=== PATIENT | male | born 1960 | race Caucasian/White ===

== ENCOUNTER 2023-07-11 09:01 | Emergency (ER) | payer OTHER, SELFPAY ==
[2023-07-11 09:03] VITALS: BP 109/66
--- NOTE | 2023-07-11 09:26 | ED.MUSCINJ ---
HPI-Injury
General
Chief Complaint: Fall
Source: patient
Exam Limitations: none
Time Seen by Provider: 07/11/23 09:21
Nursing documentation reviewed up to this point in time: agreed with
Travel History
Have you had any contact with someone who has COVID-19?: No
Do you have any symptoms of coronavirus? Fever > 100 degrees, chills, cough, shortness of breath, sore throat, loss of taste or smell, muscle aches, or headache?: No
History of Present Illness-Injury
Initial Injury comments:
63-year-old male with history of CHF, HTN, EF of 25%, RA on Embril weekly, cholecystectomy and orthopedic surgeries presents from home stating via EMS for right posterior lateral rib pain after a slip and fall on the ice while shoveling in his
driveway yesterday 6 PM, falling flat on his back. He also struck his left wrist hard on the ground and has pain in the ulnar aspect of the carpal bone area. He denies chest pain or trouble breathing. Denies abdominal pain. He denies hitting his
head or LOC. Denies headache, neck pain. He has been ambulating well. He is anticoagulated on Eliquis
Past History
Past History
ED Past Medical History: Other (Cardiomyopathy w EF 25% 05/13/23) and Other (RA)
ED Past Surgical History: Cardiac (cath) and Orthopedic
Social History
Tobacco: Non-smoker
Personal:
Living: with family
Employment: Employed
Review of Systems
Review of Systems
Allergies reviewed?: Yes
All Other Systems: ROS reviewed and negative except as documented in HPI and ROS
Respiratory: Denies cough or trouble breathing
Cardiac: Denies chest pain or syncope
ABD/GI: Denies abdominal pain, nausea or vomiting
Musculoskeletal: Reports other (pain right ribs, left wrist); Denies neck pain
Skin: Reports no symptoms
Neurological: Denies dizzy (feels 'a little lightheaded' since DC from hospital and on new meds 2-3 weeks ago.), headache, weakness or numbness
Phy Exam
Physical Exam
Physical Exam:
GENERAL: No acute distress. A&Ox3.
CONSTITUTIONAL: Afebrile.
EYES: PERRL, conjunctivae normal
Neck: Supple
ENMT: moist mucus membranes, Pharynx nl
RESPIRATORY: Regular respirations, nonlabored, lungs clear.
CARDIOVASCULAR: Regular rate and rhythm, no murmurs, no rubs.
GI: Soft, nontender, normal BS
MUSCULOSKELETAL: No spinal bony tenderness. Tender right mid posterior-lateral ribs. Mild tenderness over carpal bones, ulnar aspect, no swelling or discoloration. Moves with ease. Well perfused.
SKIN: Warm, dry, pink
PSYCH: Normal mood and affect. Well kept, interactive and appropriate
NEUROLOGIC: Awake, alert and oriented. No focal neurological deficits.
Injury Course
Orders/Labs/Results
Orders:
Orders
07/11/23 09:28
Urinalysis Reflex To Culture Urgent
Date Specimen was Collected: 07/11/23
Time Specimen was Collected: 09:24
07/11/23 09:43
Ribs, Right 3 View W/PA Chest [CR Ribs-right 3 Vw W/pa Chest*] Urgent
Comment:
Reason For Exam: pain after fall on snow
07/11/23 09:44
Wrist, Left 3 Views CR [CR Wrist - Left Min 3 Views] Urgent
Comment:
Reason For Exam: pain over carpal bones ulnar aspect
07/11/23 10:[address] Non Medication Order As Directed
Physician Order: Rib belt
Above order entered?: Yes
07/11/23 10:[address] Non Medication Order As Directed
Physician Order: Incentive spirometry
Above order entered?: Yes
07/11/23 11:01
Acetaminophen [Tylenol] 1,000 mg PO NOW STA
Abnormal Lab Results
07/11/23
09:28
Urine Ketones 1+ A
(Negative)
MDM/Problems Addressed
Differential Diagnosis Includes:
rib fracture, sprain
L wrist fracture, ST injury
MDM/Problems Addressed:
63-year-old male with history of CHF, HTN, EF of 25%, RA on Embril weekly, cholecystectomy and orthopedic surgeries presents from home stating via EMS for right posterior lateral rib pain after a slip and fall on the ice while shoveling in his
driveway yesterday 6 PM, falling flat on his back. He also struck his left wrist hard on the ground and has pain in the ulnar aspect of the carpal bone area. He denies chest pain or trouble breathing. Denies abdominal pain. He denies hitting his
head or LOC. Denies headache, neck pain. He has been ambulating well. He is anticoagulated on Eliquis
07/11/2023 1028 AM
UA negative
Left wrist x-ray initially read by this examiner, normal
Right ribs with chest x-ray initially read by this examiner: No acute abnormality noted
07/11/2023 1045AM
Rib belt applied with stated comfort
Pt feeling 'a little lightheaded.' Has not eaten yet today, started on new cardiac meds within the past 2 weeks.
Orthostatics negative.
Has appt with PCP in 3 days and will discuss.
Chronic conditions affecting care: Cardiomyopathy (EF 25%, on Eliquis)
*Critical Care Note
Total Time (30-74mins, 75-104mins- exclusive of procedures): Not Applicable
ED Attending Note
-
Portions of this chart may have been created with voice recognition software.� Occasional wrong word or��sound alike� substitutions may have occurred due to the inherent limitations of voice recognition software.
Discharge Plan
Departure
Patient Disposition: Home (Routine Discharge)
Date of Disposition: 07/11/23
Time of Disposition: 10:37
Patient with high blood pressure during this ER visit?: No
Condition: Good
Discharge Problem:
Fall due to ice or snow, Contusion of left wrist, Contusion of ribs
Instructions: Contusion (DC), Low Blood Pressure (DC), Rib Fracture or Bruised Rib ED
Prescriptions:
No Action
multivitamin Tablet
1 tab PO DAILY
carvedilol 3.125 mg Tablet
3.125 mg PO BID
Enbrel 50 mg/mL (1 mL) Syringe
50 mg SC WEEKLY
Eliquis 5 mg Tablet
5 mg PO BID
lisinopril 2.5 mg tablet
2.5 mg PO DAILY Qty: 30 5RF
furosemide [Lasix] 20 mg tablet
20 mg PO DAILY Qty: 90 5RF
Referrals:
Vale Myers MD [Family Provider] - Keep scheduled appt
Activity Restrictions/Additional Instructions:
As we discussed, wear the rib belt if it helps.
Use the incentive spirometer once an hour while awake for 10 breaths for the next week.
Tylenol 1000 mg up to 3 times a day as needed for pain.
Keep your previously scheduled appointment with Dr. Myers in 3 days.
Your blood pressure is on the low side. 107/74-98/68
Check your blood pressure once same time every day and record time and date. If you continue to feel lightheaded, call you information coder and discuss perhaps adjusting your medications
Please discuss with your primary doctor or Thursday also.
Interventions
Interventions:
*Risk Screen - Suicide Last Done: 07/11/23 09:51
*General Assessment Last Done: 07/11/23 09:03
*Neglect/Abuse Screening Last Done: 07/11/23 09:51
ED- Fall Risk Assessment Last Done: 07/11/23 09:30
*ED COVID-19 Vaccine History Last Done: 07/11/23 09:03
*Nursing Disposition Last Done: 07/11/23 11:18
ED-Musculoskeletal Assessment Last Done: 07/11/23 09:50
ED- Neurological Assessment Last Done: 07/11/23 09:23
ED-Skin Assessment Last Done: 07/11/23 09:23
Discharge Date and Time
Discharge Date/Time: 07/11/23 11:18
[2023-07-11 09:41] LABS: Urine Albumin Trace (Neg - Trace); Urine Bilirubin Negative (Negative); Urine Character Clear (Clear); Urine Color Yellow; Urine Glucose Negative (Negative); Urine Ketone 1+ (Negative); Urine Leukocyte Negative (Negative); Urine Nitrite Negative (Negative); Urine Occult Blood Negative (Negative); Urine Specific Gravity 1.015 (<1.030); Urine Urobilinogen 1+ (Neg - 1+)
[2023-07-11 10:04] VITALS: BMI 22.1
[2023-07-11 10:23] VITALS: BP 96/59
[2023-07-11 11:01] VITALS: BP 107/74; BP 113/68; BP 97/68; PULSE 84; PULSE 88; PULSE 89
[2023-07-11] MEDS: TYLENOL 1000 MG PO (11:03)
== END 2023-07-11 11:18 | disposition home or self-care (01) ==
LOC: EMR 09:01
PROVIDERS: EMERGENCY PHYSICIAN Emergency Medicine; FAMILY PHYSICIAN Family Medicine
DX: S60.212A Contusion of left wrist, initial encounter (principal); S20.211A Contusion of right front wall of thorax, initial encounter; W00.0XXA Fall on same level due to ice and snow, initial encounter; Y93.H1 Activity, digging, shoveling and raking; Y92.008 Other place in unspecified non-institutional (private) residence as the place of occurrence of the external cause; Z79.01 Long term (current) use of anticoagulants
CPT/HCPCS: 99284; 71101; 73110; 81003

== ENCOUNTER → 2023-07-22 06:44 | Outpatient (REF) | payer OTHER, SELFPAY | LOC: RAD 06:44 | PROVIDERS: ATTENDING PHYSICIAN Family Medicine | DX: I87.2 Venous insufficiency (chronic) (peripheral) (principal); I82.401 Acute embolism and thrombosis of unspecified deep veins of right lower extremity | CPT/HCPCS: 93922; 93925 ==

== ENCOUNTER 2023-07-28 11:24 | Emergency (ER) | payer OTHER, SELFPAY ==
[2023-07-28 11:44] VITALS: BP 135/91
[2023-07-28 12:15] LABS: % Eosinophils 3.5 % (0-6); % Immature Granulocytes 0.2 % (0-0.5); % Lymphocytes 37.3 % (20.5-51.1); % Monocytes 13.7 % (1.7-9.3); % Neutrophils 44.3 % (42.2-75.2); Absolute Basophils 0.1 10^3/uL (0-0.2); Absolute Eosinophils 0.2 10^3/uL (0-0.7); Absolute Lymphocytes 2.2 10^3/uL (1.2-3.4); Absolute Monocytes 0.8 10^3/uL (0.1-0.6); Absolute Neutrophils 2.7 10^3/uL (1.4-6.5); Hematocrit 38.7 % (39.0-52.0); Hemoglobin 13.5 g/dL (13.0-18.0); Mean Corp Hgb Conc. 34.9 g/dL (33.0-37.0); Mean Corpuscular Hgb 31.1 pg (27.0-31.0); Mean Corpuscular Volume 89.2 fL (80.0-94.0); Mean Platelet Volume 10.4 fL (7.4-10.4); Nucleated Red Blood Cells % 0 % (-); Platelet Count 233 10^3/uL (130-400); Red Blood Cell Count 4.34 10^6/uL (4.70-6.10); Red Cell Dist. Width 12.7 % (11.5-14.5)
[2023-07-28 12:39] LABS: ALT (SGPT) 30 U/L (0-50); AST (SGOT) 34 U/L (17-59); Albumin 4.4 g/dl (3.5-5.0); Alkaline Phosphatase 68 U/L (38-126); Blood Urea Nitrogen 23 mg/dl (9-20); Calcium 9.4 mg/dl (8.4-10.2); Carbon Dioxide 26 mmol/L (22-30); Chloride 105 mmol/L (98-107); Glucose 114 mg/dl (70-99); Potassium 4.9 mmol/L (3.5-5.1); Sodium 136 mmol/L (135-145); Total Bilirubin 0.7 mg/dl (0.2-1.3); Total Protein 7.5 g/dl (6.3-8.2); eGFR > 60.00
[2023-07-28 12:49] LABS: NT-proBNP 1860 pg/ml; Troponin I < 0.012 ng/ml
--- NOTE | 2023-07-28 14:16 | ED.GENMED ---
History of Present Illness
General
Chief Complaint: Breathing Problem
Time Seen by Provider: 07/28/23 13:51
Travel History
Have you had any contact with someone who has COVID-19?: No
Do you have any symptoms of coronavirus? Fever > 100 degrees, chills, cough, shortness of breath, sore throat, loss of taste or smell, muscle aches, or headache?: No
History of Present Illness
History of Present Illness:
63-year-old male with history of CHF with reduced ejection fraction, hypertension, and ischemic cardiomyopathy presents to the emergency department for evaluation of shortness of breath over the past several hours. Began upon awakening today.
States he does have chronic dyspnea on exertion due to his heart failure however feels this is worsened. Reports having a fall approximately 3 weeks ago and is concerned he could have a pneumonia secondary to under breathing in the setting of a rib
injury. Denies any fevers or chills. No purulent sputum. No leg swelling or weight gain
Past History
Past History
ED Past Medical History: Other (Cardiomyopathy w EF 25% 05/13/23) and Other (RA)
ED Past Surgical History: Cardiac (cath) and Orthopedic
Social History
Tobacco: Non-smoker
Personal:
Living: with family
Employment: Employed
Review of Systems
Review of Systems
Allergies reviewed?: Yes
All Other Systems: ROS reviewed and negative except as documented in HPI and ROS
Phy Exam
Physical Exam
Physical Exam:
GEN: Well appearing, NAD, WDWN
Eyes: PERRLA, EOMs intact, no scleral icterus
HENT: NCAT, oral mucosa moist
Lungs: CTAB, no wheezes, rales, rhonchi, normal chest wall excursion
Cardiac: RRR, no M/R/G, no peripheral edema. Radial pulses 2+ bilat
Neuro: AO x 3
MSK: No gross deformity or ecchymosis. No edema. No digital clubbing
Skin: No rashes, petechiae. Normal color, no pallor or jaundice.
Psych: Calm, cooperative, proper hygiene
Scores
Heart Failure Risk
Heart Failure Risk Score: Not Applicable
Course
Orders/Labs/Results
Orders:
Orders
07/28/23 11:50
Electrocardiogram (*1) Urgent
Reason for Study: Shortness of Breath
EKG- Treatment ONCE
Chest [CR Chest - 2 Views ] Urgent
Comment:
Reason For Exam: sob
07/28/23 12:02
Complete Blood Count/With Diff Urgent
Comprehensive Metabolic Panel Urgent
NT-proBNP Urgent
Troponin I Urgent
Abnormal Lab Results
07/28/23
12:02
RBC 4.34 L 10^6/uL
(4.70-6.10)
Hct 38.7 L %
(39.0-52.0)
MCH 31.1 H pg
(27.0-31.0)
Absolute Monos (auto) 0.8 H 10^3/uL
(0.1-0.6)
Monocytes % 13.7 H %
(1.7-9.3)
BUN 23 H mg/dl
(9-20)
Glucose 114 H mg/dl
(70-99)
07/28/23 12:02
07/28/23 12:02
Vital Signs
Initial and Last Documented VS:
Initial Vital Signs
Temp Pulse Resp BP Pulse Ox
98.0 F 93 20 135/91 96
07/28/23 11:44 07/28/23 11:44 07/28/23 11:44 07/28/23 11:44 07/28/23 11:44
Last Documented Vital Signs
Temp Pulse Resp BP Pulse Ox
98.0 F 102 18 135/91 97
07/28/23 11:44 07/28/23 14:20 07/28/23 14:20 07/28/23 11:44 07/28/23 14:20
MDM/Problems Addressed
MDM/Problems Addressed:
Patient appears clinically well at rest. He is not hypoxic and does not appear to be hypervolemic. Do not feel this represents ACS or decompensated heart failure. Chest x-ray interpreted by radiology is suspicious for developing right lower lobe
infiltrate thus we will treat with antibiotics for potential pneumonia in the setting of atelectasis after rib injury. Encourage close cardiology follow-up
Comment
Comment:
EKG independently interpreted by me shows a sinus tachycardia at a rate of [address] depressions, no prior EKGs for direct comparison
*Critical Care Note
Total Time (30-74mins, 75-104mins- exclusive of procedures): Not Applicable
ED Attending Note
-
Portions of this chart may have been created with voice recognition software.� Occasional wrong word or��sound alike� substitutions may have occurred due to the inherent limitations of voice recognition software.
Discharge Plan
Departure
Patient Disposition: Home (Routine Discharge)
Date of Disposition: 07/28/23
Time of Disposition: 15:48
Patient with high blood pressure during this ER visit?: No
Discharge Problem:
Right lower lobe pneumonia
Instructions: Shortness of Breath (Dyspnea) (DC)
Prescriptions:
New
amoxicillin-pot clavulanate 875-125 mg tablet
1 tab PO BID Qty: 10 0RF
No Action
multivitamin Tablet
1 tab PO DAILY
carvedilol 3.125 mg Tablet
3.125 mg PO BID
Enbrel 50 mg/mL (1 mL) Syringe
50 mg SC WEEKLY
Eliquis 5 mg Tablet
5 mg PO BID
lisinopril 2.5 mg tablet
2.5 mg PO DAILY Qty: 30 5RF
furosemide [Lasix] 20 mg tablet
20 mg PO DAILY Qty: 90 5RF
Referrals:
Vale Myers MD [Family Provider] -
Activity Restrictions/Additional Instructions:
There is a mild area on the right lower lung that suggests a pneumonia per our radiologist.
If your symptoms are not improving despite antibiotics, please discuss with your principal technical writer regarding increasing your carvedilol
Interventions
Interventions:
*Risk Screen - Suicide Last Done: 07/28/23 16:06
*General Assessment Last Done: 07/28/23 14:18
*Neglect/Abuse Screening Last Done: 07/28/23 14:22
ED- Fall Risk Assessment Last Done: 07/28/23 14:18
*ED COVID-19 Vaccine History Last Done: 07/28/23 14:18
*Nursing Disposition Last Done: 07/28/23 16:06
ED- Cardiac Assessment Last Done: 07/28/23 14:18
ED- Pulmonary Assessment Last Done: 07/28/23 14:18
Discharge Date and Time
Discharge Date/Time: 07/28/23 16:07
[2023-07-28 14:18] VITALS: BMI 22.3
== END 2023-07-28 16:07 | disposition home or self-care (01) ==
LOC: EMR 11:24
PROVIDERS: Emergency Medicine; EMERGENCY PHYSICIAN Student in an Organized Health Care Education/Training Program; FAMILY PHYSICIAN Family Medicine
DX: J18.9 Pneumonia, unspecified organism (principal); I11.0 Hypertensive heart disease with heart failure; I50.22 Chronic systolic (congestive) heart failure; I25.5 Ischemic cardiomyopathy
CPT/HCPCS: 99283; 71046; 80053; 83880; 84484; 85025; 93005

== ENCOUNTER → 2023-07-31 16:21 | Outpatient (REF) | payer OTHER, SELFPAY | LOC: RAD 16:21 | PROVIDERS: ATTENDING PHYSICIAN Internal Medicine Hematology & Oncology; FAMILY PHYSICIAN Family Medicine | DX: I82.401 Acute embolism and thrombosis of unspecified deep veins of right lower extremity (principal); M06.9 Rheumatoid arthritis, unspecified | CPT/HCPCS: 71250 ==

== ENCOUNTER 2023-08-04 12:47 | Inpatient (IN) | payer OTHER, SELFPAY ==
[2023-08-04] VITALS (53 sets, daily range): BP systolic 72–153; BP diastolic 55–96; PULSE 2–108; BMI 22.0; BMI 22.2
[2023-08-04] MEDS: NITROGLYCERIN PREMIX 250 IV (11:11)
[2023-08-04 11:22] LABS: Hematocrit 44.3 % (39.0-52.0); Hemoglobin 14.9 g/dL (13.0-18.0); Mean Corp Hgb Conc. 33.6 g/dL (33.0-37.0); Mean Corpuscular Hgb 31.8 pg (27.0-31.0); Mean Corpuscular Volume 94.5 fL (80.0-94.0); Mean Platelet Volume 10.8 fL (7.4-10.4); Platelet Count 268 10^3/uL (130-400); Red Blood Cell Count 4.69 10^6/uL (4.70-6.10); Red Cell Dist. Width 12.8 % (11.5-14.5); White Blood Cell Count 10.9 10^3/uL (4.8-10.8)
[2023-08-04] MEDS: LASIX 60 MG IV (11:22)
--- NOTE | 2023-08-04 11:22 | ED.GENMED ---
History of Present Illness
General
Chief Complaint: Breathing Problem
Source: patient and spouse
Exam Limitations: none
Time Seen by Provider: 08/04/23 11:14
Nursing documentation reviewed up to this point in time: agreed with
Travel History
Have you had any contact with someone who has COVID-19?: Unable to Answer
Do you have any symptoms of coronavirus? Fever > 100 degrees, chills, cough, shortness of breath, sore throat, loss of taste or smell, muscle aches, or headache?: Unable to Answer
History of Present Illness
History of Present Illness:
Patient diagnosed with pneumonia 3 days ago and started on Augmentin, presents to ED secondary to continual cough upon discharge, along with worsening shortness of breath this morning. Denies chest pain. Denies fever or chills. Denies nausea,
vomiting, or diarrhea. Denies dizziness. Per spouse at bedside, patient has been coughing continually, along with decreased appetite. Per paramedics, patient was found to be in severe respiratory distress at home, with initial pulse ox in 70s.
Patient was given 2 tablets of sublingual nitroglycerin, started on CPAP and brought to the hospital, with mild improvement symptoms.
Past History
Past History
ED Past Medical History: Other (Cardiomyopathy w EF 25% 05/13/23) and Other (RA)
ED Past Surgical History: Cardiac (cath) and Orthopedic
Social History
Tobacco: Non-smoker
Personal:
Living: with family
Employment: Employed
Review of Systems
Review of Systems
Allergies reviewed?: Yes
All Other Systems: ROS reviewed and negative except as documented in HPI and ROS
Constitutional: Reports no symptoms; Denies fever
EENT: Reports no symptoms
Respiratory: Reports cough and trouble breathing
Cardiac: Reports no symptoms; Denies chest pain
ABD/GI: Reports no symptoms
: Reports no symptoms
Musculoskeletal: Reports no symptoms
Skin: Reports no symptoms
Neurological: Reports no symptoms
Phy Exam
Physical Exam
Physical Exam:
Physical Exam
General: severe respiratory distress, not acutely ill. afebrile
Head: nc/at. eomi
Neck: supple. no meningeal signs.
Heart: s1/s2 regular rate and rhythm, no murmur. equal radial pulses.
Lungs: severe respiratory distress with retraction. rhonchi/crackles bilaterally.
Abdomen: normal bowel sounds. not tender.
Neuro: alert and oriented. no focal neurological deficits
Skin: no rash
Psychiatric: well kept. interactive and cooperative
Extremities: no edema. no calf tenderness.
Scores
Heart Failure Risk
Heart Failure Risk Score: Yes
History of Stroke or TIA: No
History of intubation for respiratory distress: No
Heart rate on ED arrival >/= 110: Yes
SaO2 <90% on arrival on room air: Yes
HR >/=110 during 3min walk test (or too ill to perform test): No
ECG has acute ischemic changes: No
Urea >/=12mmol/L (BUN 33.6mg/dL): No
Serum CO2>/=35mmol/L: No
Troponin I or T elevated to LA Level (0.4mg/dL): No
NT-proBNP >/=5,000ng/L (5,000pg/ml): No
HF Risk Score: 1
Admission Status: MEDIUM RISK 5.1% Consider observation or discharge to home with homecare & f/u visit to PCP/Roller Staker, or SNF for treatment
Course
Orders/Labs/Results
Orders:
Orders
08/04/23 11:05
Portable Chest Xray [CR Chest Portable - 1 View] Urgent
Comment:
Reason For Exam: SOB
Reason Study Needs to be Portable: Patient Unstable
08/04/23 11:06
Electrocardiogram (*1) Urgent
Reason for Study: Other
Other Reason for Exam: Respiratory Distress
Cardiac Monitoring- Treatment ONCE
EKG- Treatment ONCE
IV Insert/Care/Rem.- Treatment PRN
O2 Therapy [RESP] Urgent
Titrate/Wean O2 to maintain O2 sat greater than (%): 93
Special Instructions: TO MAINTAIN CONTINUOUS O2 SATS >/= 93%
Pulse Ox/cont/shift [RESP] Urgent
Quantity: 1
Special Instructions: continuous pulse ox
08/04/23 11:07
Complete Blood Count/With Diff Urgent
Comprehensive Metabolic Panel Urgent
Magnesium Urgent
Manual Differential Urgent
NT-proBNP Urgent
Troponin I Urgent
08/04/23 11:14
COVID-19 Antigen Urgent
Source: Nasal Swab
Influenza A+B Rapid Molecular Urgent
TATE Source: Nasal Swab
Specimen Description:
Furosemide [Lasix] 100 mg .ROUTE .STK-MED ONE
Nitroglycerin 100 mg/250 ml [Nitroglycerin Premix] 100 mg in 250 ml .ROUTE .STK-MED
08/04/23 11:21
Furosemide [Lasix] 60 mg IV NOW STA
08/04/23 11:24
Electrocardiogram (*1) Urgent
Reason for Study: Shortness of Breath
EKG- Treatment ONCE
Lactic Acid Q4H
Comment: ON ICE, CANCEL 2ND ORDER IF FIRST LACTIC ACID LEVEL <2
Blood Culture Q30M
TATE Source: Blood/Venous
Specimen Description:
Comment: FROM 2 SEPARATE SITES
Blood Culture Q30M
TATE Source: Blood/Venous
Specimen Description:
Comment: FROM 2 SEPARATE SITES
08/04/23 11:28
Azithromycin 500 mg/250 ml [Zithromax Infusion] 500 mg in 250 ml IV NOW
CefTRIAXone [Rocephin] 1,000 mg IV NOW STA
08/04/23 11:30
Nitroglycerin 100 mg/250 ml [Nitroglycerin Premix] 100 mg in 250 ml IV PER PROTOCOL
Initial dose in mcg/min, then titrate:: 100
Titrate to keep:: SBP < 160 mmHg
Titrate by mcg/min:: 5 mcg/min, may increase by 10 mcg/min if dose > 20 mcg/min
Frequency of titrations (minutes):: every 3-5 minutes
Maximum dose in mcg/min:: 200
Begin to taper infusion when:: Remained at goal for 2hrs
Taper by mcg/min:: 5 mcg/min
Frequency of taper (minutes) if patient maintains goal:: 30
Taper to off?: Yes
If infusion off & no longer maintaining goal:: Contact Provider
08/04/23 11:47
0.9% Sodium Chloride 500 ml [Nss] 500 ml IV BOLUS
Albuterol Nebs [Ventolin Nebules] 2.5 mg INH R NOW STA
08/04/23 12:23
Admit/Transfer Patient As Directed
Co-Sign Provider:
Level of Care: Inpatient admission
Assign to:: ICU
Physician / Group: Hospitalist
Diagnosis: Sepsis with pneumonia and CHF
Reason for Hospitalization: Sepsis with pneumonia and CHF
Expected length of stay greater than two midnights?: Yes
ELOS- Estimated Length of Stay in days: 5
I certify the patient meets the requirements for IP care: Yes
08/04/23 12:25
Code Status As Directed
Resuscitation Status: Full Code
08/04/23 12:30
0.9% Sodium Chloride 500 ml [Nss] 500 ml IV BOLUS
NORepinephrine 4 MG/250 ML [Levophed] 4 mg in 250 ml IV PER PROTOCOL
Initial dose in mcg/min, then titrate:: 5
Titrate to keep:: SBP > 90 mmHg
Titrate by mcg/min:: 1-2 mcg/min
Frequency of titrations (minutes):: 5
Maximum dose in ICU in mcg/min:: 30
Maximum dose in IMU in mcg/min:: 8
Maximum dose in IVU in mcg/min:: 4
Begin to taper infusion when:: Remained at goal for 4hrs
Taper by mcg/min:: 1-2 mcg/min
Frequency of taper (minutes) if patient maintains goal:: 30
Taper to off?: Yes
If infusion off & no longer maintaining goal:: Contact Provider
08/04/23 13:01
RSV [Respiratory Syncytial Virus] Stat
TATE Source: Nasal Swab
Specimen Description:
Date Specimen was Collected: 08/04/23
Time Specimen was Collected: 12:42
08/04/23 13:21
Lactic Acid Q6H
Acetaminophen [Tylenol] 650 mg PO Q4HPRN PRN
Magnesium Hydroxide [Milk of Magnesia] 15 ml PO HSPRN PRN
08/04/23 13:21
CARDIOLOGY CONSULT Routine
Consulting Provider: Levar Holly
Was physician already notified: Yes
Reason for consult: CHF exacerbation
Packer Operator Automatic Consult Urgent
Consulting Provider: Heriberto Feliciano
Was physician already notified: Yes
Reason for consult: Sepsis
VTE Contraindication Routine
VTE Mechanical Device Contraindication: Medical Contraindication
Pharmocologic Contraindication: Medical Contraindication
Legionella Urinary Antigen Routine
TATE Source: Urine
Specimen Description:
Sputum Culture [Respiratory Culture/Gram Stain] Routine
TATE Source: Sputum
Specimen Description:
Strep pneumoniae Antigen Urgent
TATE Source: Urine
Specimen Description:
Activity As Directed
Activity Level: Out of Bed-Early Mobility
I&O [Intake/ Output] As Directed
Frequency: Per unit guidelines
Vital Signs As Directed
Frequency: Per unit guidelines
Weight As Directed
Frequency: Daily
08/04/23 13:22
ABG [Arterial Blood Gas] Stat
%Oxygen/Room Air: BiPAP
08/04/23 14:00
Piperacillin/Tazo 2.25 Gram [Zosyn] 2.25 grams in 50 ml IV Q8H
VANCOMYCIN Pharmacy to Dose [VANCOCIN Pharmacy to Dose] 1 each Pharmacy To Prepare [Call Pharmacy To Prepare] 0 ml IV PER PROTOCOL
08/04/23 Dinner
NPO
Allow oral meds: Yes
Allow clear liquids: No
08/04/23 15:30
Lactic Acid Q4H
Comment: ON ICE, CANCEL 2ND ORDER IF FIRST LACTIC ACID LEVEL <2
08/04/23 19:21
Lactic Acid Q6H
08/04/23 20:00
Apixaban [Eliquis] 5 mg PO BID
08/04/23 21:21
Troponin I Q8H
08/05/23 05:21
Troponin I Q8H
08/05/23 06:00
Basic Metabolic Panel IN AM
Complete Blood Count/With Diff IN AM
LFT [Rpagv-Qyki-Qyvaocw] IN AM
Magnesium IN AM
TSH IN AM
08/05/23 08:00
Furosemide [Lasix] 40 mg IV DAILY
Pantoprazole [Protonix IV] 40 mg IV DAILY
Abnormal Lab Results
08/04/23 08/04/23
11:07 11:24
WBC 10.9 H 10^3/uL
(4.8-10.8)
RBC 4.69 L 10^6/uL
(4.70-6.10)
MCV 94.5 H fL
(80.0-94.0)
MCH 31.8 H pg
(27.0-31.0)
MPV 10.8 H fL
(7.4-10.4)
Monocytes (Manual) 11 H %
(2-9)
Carbon Dioxide 18 L mmol/L
(22-30)
Glucose 305 H mg/dl
(70-99)
Lactic Acid 6.2 H* mmol/L
(0.7-2.0)
Magnesium 2.4 H mg/dl
(1.6-2.3)
08/04/23 11:07
08/04/23 11:07
Vital Signs
Initial and Last Documented VS:
Initial Vital Signs
Pulse Resp BP Pulse Ox
126 28 153/96 91
08/04/23 11:08 08/04/23 11:08 08/04/23 11:08 08/04/23 11:08
Last Documented Vital Signs
Temp Pulse Resp BP Pulse Ox
97.9 F 92 24 109/72 97
08/04/23 12:52 08/04/23 15:00 08/04/23 15:00 08/04/23 15:00 08/04/23 15:37
MDM/Problems Addressed
MDM/Problems Addressed:
Patient evaluated immediately upon arrival, secondary to significant respiratory distress. Upon initial examination, patient noted to be exhibiting symptoms concerning for possible flash pulmonary edema. As such, patient given Lasix, started on
BiPAP, along with nitroglycerin infusion.
ED chart from 07/31/2023 reviewed -discharged home on Augmentin for likely pneumonia
CTA chest report (07/31/23) reviewed: pneumonia without evidence of PE
Patient reports improving symptoms during treatment. In light of patient's likely infectious etiology, along with rapidly improving blood pressure, nitroglycerin infusion discontinued. Antibiotics ordered.
Blood culture pending. Patient will be admitted to ICU for further evaluation and treatment.
Critical care statement: A total of 40 minutes of critical care time was provided for this patient. This includes management of unstable vital signs, evaluation of the patient at bedside, reviewing the patient's pertinent medical records, review of
old EKGs and review of pertinent medical records. This time with separate from time utilized to perform the aforementioned documented procedures
*EKG
Interpreted by ED Provider?: Yes
EKG Intrepretation Date: 08/04/23
Heart Rate: 110
Rate: tachycardiac
Rhythm: sinus
[place]: normal axis
Interval: normal interval
*Critical Care Note
Total Time (30-74mins, 75-104mins- exclusive of procedures): 40 min
ED Attending Note
-
Portions of this chart may have been created with voice recognition software.� Occasional wrong word or��sound alike� substitutions may have occurred due to the inherent limitations of voice recognition software.
Discharge Plan
Departure
Patient Disposition: Admit
Date of Disposition: 08/04/23
Time of Disposition: 11:38
Admit to: ICU
Presentation/result/management discussed w/ accepting MD/DO: Hospitalist
Discharge Problem:
Acute respiratory distress, Pneumonia, Hypoxia
Interventions
Interventions:
*Risk Screen - Suicide Last Done: 08/04/23 11:08
*General Assessment Last Done: 08/04/23 11:27
*Neglect/Abuse Screening Last Done: 08/04/23 11:08
ED- Fall Risk Assessment Last Done: 08/04/23 11:16
*ED COVID-19 Vaccine History Last Done: 08/04/23 11:27
*Nursing Disposition Last Done: 08/04/23 15:08
ED- Cardiac Assessment Last Done: 08/04/23 11:16
ED- Pulmonary Assessment Last Done: 08/04/23 11:16
Discharge Date and Time
Discharge Date/Time: 08/04/23 15:09
[2023-08-04] MEDS: ROCEPHIN 1000 MG IV (11:32)
[2023-08-04 11:37] LABS: ALT (SGPT) 37 U/L (0-50); AST (SGOT) 43 U/L (17-59); Albumin 4.4 g/dl (3.5-5.0); Alkaline Phosphatase 73 U/L (38-126); Blood Urea Nitrogen 17 mg/dl (9-20); Carbon Dioxide 18 mmol/L (22-30); Chloride 106 mmol/L (98-107); Glucose 305 mg/dl (70-99); Magnesium 2.4 mg/dl (1.6-2.3); Potassium 4.3 mmol/L (3.5-5.1); Sodium 136 mmol/L (135-145); Total Bilirubin 0.7 mg/dl (0.2-1.3); Total Protein 7.4 g/dl (6.3-8.2); eGFR > 60.00
[2023-08-04] MEDS: ZITHROMAX INFUSION 250 IV (11:39)
[2023-08-04 11:40] LABS: COVID-19 Antigen Negative (Negative)
[2023-08-04 11:45] LABS: NT-proBNP 3510 pg/ml; Troponin I < 0.012 ng/ml
[2023-08-04] MEDS: NSS 500 IV ×2 (11:52→12:40)
[2023-08-04 11:54] LABS: Lactic Acid 6.2 mmol/L (0.7-2.0)
[2023-08-04 12:01] LABS: Absolute Neutrophils -Man Diff 4.7 10^3/uL (1.4-6.5); Band Neutrophils 0 % (0-3); Eosinophils 3 % (0-6); Lymphocytes 42 % (20-51); Monocytes 11 % (2-9); Normal RBC Morphology Yes; Platelets Checked Yes; Segmented Neutrophils 44 % (42-75); Total Cells Counted 100
[2023-08-04] MEDS: VENTOLIN NEBULES 2.5 MG INH (12:01)
[2023-08-04] MEDS: LEVOPHED 250 IV (12:34)
--- NOTE | 2023-08-04 12:46 | HPS.HSE ---
Family Physician
-
Family Physician: NO INTERVIEW UNKNOWN
Chief Complaint
-
dyspnea
History of Present Illness
63yo M with PMHx of DVT on Eliquis, autoimmune disease, HTN, HFrEF came with grdual worsening of dyspnea started weeks ago. He was in [facility] 4 days ago with same complains and was found developing RLL pneumonia. At this time patient was hypoxic with
signs of CHF exacerbation on XR, was given Lasix 60mg IV but then developed symptomatic hypotension with lightheadedness, not responsive to IVF, so Levophed was started. On Exam patient however has no LE swelling and did not report any weight gain.
Admitted with septic shock 2/2 pneumonia to ICU
Medical History
Past Medical History
Past Medical History: Reports Other
Additional Past Medical History:
See Above
Past Surgical History: Reports Other
Additional Past Surgical History:
not pertinent
Social History
Tobacco: Non-smoker
Alcohol: None
Personal:
Family History
Family History: Not pertinent
Allergies / Home Medications
Allergies reflects when Allergies were last updated in [employer].
Home Medications with original date entered in [employer]
Allergy/Medication List:
Allergies
Allergy/AdvReac Type Severity Reaction Status Date / Time
codeine Allergy Nausea Verified 07/28/23 11:44
Home Medications
apixaban 5 mg tablet (Eliquis) 5 mg PO BID Blood Clot Prevention/Tx 06/19/23
carvedilol 3.125 mg tablet 3.125 mg PO BID Blood Pressure 06/19/23
etanercept 50 mg/mL (1 mL) subcutaneous syringe (Enbrel) 50 mg SC SAAB Autoimmune Disorder 06/19/23
multivitamin 1 tab PO DAILY Supplement 06/19/23
acetaminophen 325 mg tablet (Tylenol) 650 mg PO Q4HPRN PRN mild pain 08/04/23
amoxicillin 875 mg-potassium clavulanate 125 mg tablet 1 tab PO BID Infection 08/04/23
furosemide 20 mg tablet (Lasix) 20 mg PO DAILY Fluid Retention/Swelling 08/04/23
lisinopril 2.5 mg tablet 2.5 mg PO DAILY Blood Pressure 08/04/23
Review of Systems
-
History Source: Patient and Family
Constitutional: Reports See HPI
Respiratory: Reports See HPI
Cardiac: Reports See HPI
Physical Exam
Vital Signs
Vital Signs
Pulse Resp BP Pulse Ox
91 20 74/56 97
08/04/23 12:30 08/04/23 12:30 08/04/23 12:30 08/04/23 12:15
Physical Exam
General: Conversant and Respiratory Distress
HEENT: NormoCephalic and Anicteric
Respiratory: Crackles
Cardiac: S1/S2 and Regular Rhythm
GI: Soft and Non Tender
Musculoskeletal: No Clubbing, No Cyanosis and No Edema
Skin: Warm
Neuro: Awake, Alert, Oriented and AO x 3
Hematologic/Lymphatic: No Lymphadenopathy
Psych: Calm
Laboratory Results
-
08/04/23 11:07
08/04/23 11:07
Laboratory Results
Lactic Acid 6.2 mmol/L (0.7-2.0) H* 08/04/23 11:24
Total Bilirubin 0.7 mg/dl (0.2-1.3) 08/04/23 11:07
AST 43 U/L (17-59) 08/04/23 11:07
ALT 37 U/L (0-50) 08/04/23 11:07
Alkaline Phosphatase 73 U/L (38-126) 08/04/23 11:07
Troponin I < 0.012 ng/ml 08/04/23 11:07
Data Reviewed
-
Diagnostic Radiology: Report Reviewed by me
Impression/Plan
-
#Acute hypoxic respiratory failure 2/2 pneumonia, with unspecified organism
#Septic shock (elevated lactate, dyspnea, hypotension)2/2 above
Vanco/ZOsyn
legionella and S/Pneumonia Urinary Ag
Sputum Cx idf possible
Wean off pressors
[facility] consult
BiPAP as needed
Check ABG
COVID-19 neg
influenza neg
check RSV
Serial lactic acid
#Acute on chronic HFrEF exacerbation with noniscemic CM (cath in May 2023)
#Pulmonary HTN
#Mitral regurgitation
EF 30% 1 year ago
ProBNP elevated when compated to one done 1 week ago
Lasix as tolerated, Echo, follow electrolytes, daily weight and strict I&O
Low sodium diet when off BiPAP
Cardiology consult
Follow troponin, but no chest pain reported and no acute ST elevation seen on EKG
check TSH
#Hx of DVT
#Essential HTN
cont Eliquis
Hold antihypertensives until shcock resolves
Low suspiscion for VTE since patient was compliant with medications at home
Full code
Discussed with bedside
DVT ppx - Eliquis
PPI for PPX
I have spent at least 70min admitting this patient with critical illness. This required high complexity medical decision making
[2023-08-04 13:34] LABS: HCO3 17.3 mmol/L (21-28); O2 Saturation % 94.3 % (94-98); PCO2 28 mmHg (35-48); PO2 67 mmHg (83-108)
--- NOTE | 2023-08-04 15:15 | CON.CAR ---
Addendum entered and electronically signed by Levar Holly MD 08/04/23 16:31:
I saw and examined the patient.
The PHLEBOTOMY SERVICES TECHNICIAN or PA's note was reviewed and I agree with the note.
Comment: I saw and examined the patient.
The PHLEBOTOMY SERVICES TECHNICIAN or PA's note was reviewed and I agree with the note.
Comment: General: Well developed, well nourished in NAD.
Neck: Supple, no JVD, HJR, carotids +2 B/L, no bruits bilaterally.
Heart: Non displaced PMI, RRR, no murmurs, No S3, S4, no rubs.
Lungs: Scattered rhonchi throughout
Abdomen: Normal bowel sounds, soft, non-tender, non-distended.
Extremities: No clubbing, cyanosis or edema bilaterally.
Neuro: Grossly nonfocal, awake, alert and oriented x3.
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 He has had increasing shortness of breath and cough. He is
admitted for CHF and possible sepsis. He is currently on BiPAP. He feels better after IV Lasix. Also there is possibility of pneumonia and is on antibiotics.
Will assess treatment IV Lasix. Echocardiogram was unchanged. Of note his weight has gone down so unclear how reliable weights may be. Of note he has had dizziness and may be related to hypotension. May consider adding Aldactone but blood
pressure may not tolerate it. Could consider adding Farxiga or Jardiance.
Original Note:
Consultation
Consultation Request
Date/Time Consultation Requested: 08/04/23
Date/Time Consultation Performed: 08/04/23
Requesting Provider: Dr. Olvera
Performing Provider: Dr. Holly
Reason for Consultation: Acute HF
Medical History
-
History of Present Illness:
Patient came to [facility] today with increasing SOB and cough and is admitted with sepsis and acute HF, cardiology consulted. Patient saw Dr. Ramsey for a new patient visit 12/22/23 after an echo that same day showed a refused EF and mod MR. Echo was
ordered by his PCP for CARLOS and fatigue. Patient was scheduled for cardiac cath that showed normal coronary arteries on 06/19/23. GDMT has included Coreg and lisinopril. Patient was scheduled for a follow up visit 08/10/23, but came to [facility] today due
to progressive SOB. Patient was diagnosed with PNA and started on Augmentin by his PCP 3 days ago, but no improvement in SOB or cough. Paramedics reported patient had an initial pulse ox in the 70s upon their arrival and patient was given NTG SL x2
and started on CPAP. In [facility] he was started on a Nitro gtt and given Lasix with improvement in SOB. CT chest showed PNA without evidence of PE and so Nitro gtt was stopped and antibiotics started.
PMH:
Chronic HFrEF
Nonischemic CM EF 25-30% by echo 06/12/23 and up a bit to 35% by repeat echo 08/04/23
Normal coronary arteries by cath 06/19/23
HTN
RA on Enbrel
h/o DVT in 2014 and again 04/2023
Chronic Eliquis OAC
MATTY on CPAP
Past Medical History
Past Medical History: Other (in HPI)
Past Surgical History: Cholecystectomy and Orthopedic
Social History
Tobacco: Non-Smoker
Alcohol: Occasional
Drug: None
Personal:
Living: With Family
Employment: Employed
Family History
Family History: CAD and Cancer
Allergies / Home Medications
Allergy/AdvReac Type Severity Reaction Status Date / Time
codeine Allergy Nausea Verified 07/28/23 11:44
Medication Instructions Recorded Confirmed Type
apixaban 5 mg tablet (Eliquis) 5 mg PO BID Blood Clot 06/19/23 08/04/23 History
Prevention/Tx
carvedilol 3.125 mg tablet 3.125 mg PO BID Blood Pressure 06/19/23 08/04/23 History
etanercept 50 mg/mL (1 mL) 50 mg SC SAAB Autoimmune Disorder 06/19/23 08/04/23 History
subcutaneous syringe (Enbrel)
multivitamin 1 tab PO DAILY Supplement 06/19/23 08/04/23 History
acetaminophen 325 mg tablet 650 mg PO Q4HPRN PRN mild pain 08/04/23 08/04/23 History
(Tylenol)
amoxicillin 875 mg-potassium 1 tab PO BID Infection 08/04/23 08/04/23 History
clavulanate 125 mg tablet
furosemide 20 mg tablet (Lasix) 20 mg PO DAILY Fluid 08/04/23 08/04/23 History
Retention/Swelling
lisinopril 2.5 mg tablet 2.5 mg PO DAILY Blood Pressure 08/04/23 08/04/23 History
Review of Systems
-
History Source: Patient
All other systems: Negative unless noted
Physical Exam
Vital Signs
Temp Pulse Resp BP Pulse Ox
97.9 F 92 24 109/72 100
08/04/23 12:52 08/04/23 15:00 08/04/23 15:00 08/04/23 15:00 08/04/23 13:25
GEN: AAO x3
HEENT: EOMI
LUNGS: Dyspneic with conversation. B/L rales
CV: Reg, S1/S2, no murmur
ABD: soft, BS+, NT, ND
EXT: No edema
NEURO: Gross non-focal
SKIN: No rash
Lab Results
08/04/23 11:07
08/04/23 11:07
Troponin I Cancelled 08/04/23 13:21
Buy-G-Itcpymwbdid Pept 3510 pg/ml 08/04/23 11:07
Impression / Plan
-
PCP: Dr. Myers
Cardiology: Dr. Ramsey
Impression:
Acute hypoxic respiratory failure
Sepsis and shock
Acute on chronic HFrEF
Nonischemic CM EF 25-30% by echo 06/12/23 and up a bit to 35% by repeat echo 08/04/23
Normal coronary arteries by cath 06/19/23
HTN
RA on Enbrel
h/o DVT in 2014 and again 04/2023
Chronic Eliquis OAC
MATTY on CPAP
Echo 06/12/23: EF 25-30%, mod MR, mild TR with PAP 25-30 mmHg
Echo 08/04/23: EF 35% quantitatively but 25% by visual estimate, mod to sev MR
Plan:
-Patient came to [facility] today with increasing SOB and cough and is admitted with sepsis and acute HF, cardiology consulted. Patient saw Dr. Ramsey for a new patient visit 06/12/23 after an echo that same day showed a refused EF and mod MR. Echo was
ordered by his PCP for CARLOS and fatigue. Patient was scheduled for cardiac cath that showed normal coronary arteries on 06/19/23. GDMT has included Coreg and lisinopril. Patient was scheduled for a follow up visit 08/10/23, but came to [facility] today due
to progressive SOB. Patient was diagnosed with PNA and started on Augmentin by his PCP 3 days ago, but no improvement in SOB or cough. Paramedics reported patient had an initial pulse ox in the 70s upon their arrival and patient was given NTG SL x2
and started on CPAP. In [facility] he was started on a Nitro gtt and given Lasix with improvement in SOB. CT chest showed PNA without evidence of PE and so Nitro gtt was stopped and antibiotics started.
-ECG reviewed by me with sinus tachycardia and PVCs.
-Patient was negative for COVID and flu. Legionella and RSV pending. Symptomatically improved on BiPAP.
-Patient received 1 L IVF bolus in the ER and then given Lasix 60 mg IV x1. Now ordered Lasix 40 mg IV daily. Patient was taking Lasix 20 mg PO daily prior to admission. Dry weight not known, patient weighed 184 lbs in the office 06/12/23 and
currently weighs 176 lbs. Will diurese and establish a dry weight at time of discharge.
-Initial Troponin undetectable and patient had normal coronary arteries by cath 06/12/24.
-Echo repeated in the ER today. EF is probably stable.
-GDMT includes Coreg 3.125 mg BID and lisinopril 2.5 mg daily. Pending BP could consider stopping lisinopril and after a washout then starting Entresto. He has commercial insurance and can use the co-pay card.
-Consider starting spironolactone once BP improves.
-Would add Farxiga 10 mg daily once out of critical illness.
-Patient is chronically on Eliquis for h/o recurrent DVT.
--- NOTE | 2023-08-04 15:21 | PHA.VAN.IN ---
Assessment
- Assessment
Renal Function: Unknown baseline (SCR 1.2 vs 0.8 in Dec)
Concomitant Antimicrobials: piperacillin/tazobactam
Plan
- Plan
Initial / Loading Dose: 2000mg - administration pending
Maintenance Regimen: dosing by level
Monitorin/14 0600
MRSA Screen: Ordered per protocol
Will dose by level initial as SCR slightly elevated - follow trend
May be able to schedule dosing if stable or SCR improves
Pharmacokinetics Vancomycin I
- -
Patient Age: 63
Patient Sex: Male
Vancomycin Day #: 1
Indication: Pulmonary/Respiratory
Requesting Provider: Dr. Olvera
Pertinent Antimicrobial Allergies:
no pertinent antibiotic allergies
Height / Weight:
Height 6 ft 3 in
Actual Weight 80 kg
- Vital Signs / Lab Results
Temp Pulse Resp BP Pulse Ox
97.9 F 92 24 109/72 100
08/04/23 12:52 08/04/23 15:00 08/04/23 15:00 08/04/23 15:00 08/04/23 13:25
Lab Results - Hematology
08/04/23
11:07
WBC 10.9 H
Band Neutrophils 0
Lab Results - Chemistry
08/04/23
11:07
BUN 17
Creatinine 1.2
Albumin 4.4
08/04/23
11:24
Lactic Acid 6.2 H*
Microbiology Results
08/04/23 13:01 Respiratory Syncytial Virus Culture - Final
Nasal Swab Negative for Respiratory Syncytial Virus.
A false negative result may be obtained with a specimen
collected early in the acute phase. If symptoms persist, a
new specimen should be tested.
08/04/23 11:14 Influenza Types A & B (MONTY) - Final
Nasal Swab Negative for Influenza A & B, NAAT
Negative results must be combined with clinical observations
and patient history.
Nucleic Acid Amplification test (NAAT)performed on the
[employer] platform.
--- NOTE | 2023-08-04 16:00 | PTCARENOTE ---
Received patient to room 3370 from ER. Patient on midflow nasal cannula at 6L. Was able to stand and pivot into bed with standy assist. Patient is on 7mcg of levophed upon arrival. Blood pressure elevated, started to titrate medication down as
charted in worklist. 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 Patient is in a sinus rhythm. Remains NPO, using urinal to void. will review orders and complete admission
assessment. Patient oriented to room, Katia Present at bedside.
[2023-08-04] MEDS: VANCOCIN 540 MG IV (16:40)
[2023-08-04] MEDS: ZOSYN 50 IV ×2 (16:55→21:48)
--- NOTE | 2023-08-04 17:05 | CON.INTV ---
Consultation
Consultation Request
Date/Time Consultation Requested: 08/04/2023 - 1321
Date/Time Consultation Performed: 08/04/2023 - 1401
Requesting Provider: Dr. Olvera
Performing Provider: Dr. Feliciano
Reason for Consultation: SOB requiring BiPAP; hypoxia
Medical History
-
Chief Complaint: Worsening fatigue/shortness of breath
History of Present Illness:
63-year-old male never smoker with a past medical history of HFrEF, recurrent DVT on Eliquis and rheumatoid arthritis on Enbrel who presents with malaise, generalized weakness and shortness of breath. Of note patient was recently diagnosed with
right lower lobe pneumonia after coming here to the ER on 07/28/2023. He was discharged from the ER with a 5-day course of Augmentin. He had a CT chest without contrast on 07/31/2023 showing a multifocal pneumonia involving the right lower lobe, left
upper lobe and left lower lobe. 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
further evaluation. CXR showed worsening opacification within the right lower lobe as well as increased reticulonodular opacities bilaterally concerning for pneumonia +/- ADHF. Patient required supplemental oxygen and BiPAP which was difficult to
remove due to continued shortness of breath. In the ER patient was hypotensive to 79/57 and tachypneic to 21. Labs showed lactic acidosis to 6.2, hyperglycemia to 305, metabolic acidosis with serum bicarbonate of 18, leukocytosis to 10.9, Hb 14.9
and platelets 268. COVID antigen was negative. Patient given antibiotics with ceftriaxone, azithromycin. There was initial concern he was volume overloaded hence Lasix 60 mg given as well as nitroglycerin drip but this lowered his blood pressure
further. Nitroglycerin drip was stopped and patient was given IV fluids with 500cc bolus x2. Due to the patient's continued hypoxia requiring BiPAP and considering patient was hypotensive, he was transferred to ICU for admission and critical care
services consulted for additional management/recommendations.
When I saw the patient he was on mid flow nasal cannula at 6 L/min and saturating 98%. at bedside. Patient states he feels much better. He denies any chest pain currently, but he does have mucus production that he says he always produces.
He is afebrile. BP is 106/67. Echocardiogram was repeated today showing moderate�severe MR with an LVEF of 35%. Compared to prior echo from May 2023, the LVEF is relatively unchanged, and the mitral regurgitation is slightly worse now.
Patient denies headache, chest pain, abdominal pain, diarrhea, fevers or chills.
PMHx: HFrEF, rheumatoid arthritis on Enbrel, hypertension, recurrent DVT on Eliquis
PSHx: Meniscus repair, left hand reconstruction, cholecystectomy
Past Medical History
Past Medical History: Other (Above as per HPI)
Past Surgical History: Other (Above as per HPI)
Social History
Tobacco: Non-smoker
Alcohol: None
Drug: None
Personal:
Family History
Family History: Reviewed & Not Pertinent
Allergies / Home Medications
Allergies
Allergy/AdvReac Type Severity Reaction Status Date / Time
codeine Allergy Nausea Verified 07/28/23 11:44
Home Medications
Medication Instructions Recorded Confirmed Last Taken Type
apixaban 5 mg tablet (Eliquis) 5 mg PO BID Blood Clot 06/19/23 08/04/23 08/04/23 History
Prevention/Tx
carvedilol 3.125 mg tablet 3.125 mg PO BID Blood Pressure 06/19/23 08/04/23 08/04/23 History
etanercept 50 mg/mL (1 mL) 50 mg SC SAAB Autoimmune Disorder 06/19/23 08/04/23 07/26/23 History
subcutaneous syringe (Enbrel)
multivitamin 1 tab PO DAILY Supplement 06/19/23 08/04/23 08/04/23 History
acetaminophen 325 mg tablet 650 mg PO Q4HPRN PRN mild pain 08/04/23 08/04/23 08/03/23 History
(Tylenol)
amoxicillin 875 mg-potassium 1 tab PO BID Infection 08/04/23 08/04/23 08/04/23 History
clavulanate 125 mg tablet
furosemide 20 mg tablet (Lasix) 20 mg PO DAILY Fluid 08/04/23 08/04/23 08/04/23 History
Retention/Swelling
lisinopril 2.5 mg tablet 2.5 mg PO DAILY Blood Pressure 08/04/23 08/04/23 08/04/23 History
Review of Systems
-
History Source: Patient
All other systems: Negative unless noted (12 point ROS performed and is negative unless mentioned above.)
Vitals / Labs / Diagnostic Testing
Vital Signs
Temp Pulse Resp BP Pulse Ox
97.7 F 84 22 93/68 100
08/04/23 19:55 08/04/23 19:30 08/04/23 19:30 08/04/23 19:00 08/04/23 19:40
Lab Data
08/04/23 11:07
08/04/23 11:07
Laboratory Results
08/04/23 08/04/23 08/04/23
17:10 20:52
PT Cancelled 15.9 H
INR Cancelled 1.29
APTT Cancelled 28.3
pH 7.40
pCO2 28 L
pO2 67 L
HCO3 17.3 L
O2 Delivery Level
Microbiology
08/04/23 17:24 Nose Nasal Screen MRSA (PCR) - Final
MRSA not detected - performed by PCR methodology.
08/04/23 13:01 Nasal Swab Respiratory Syncytial Virus Culture - Final
Negative for Respiratory Syncytial Virus.
A false negative result may be obtained with a specimen
collected early in the acute phase. If symptoms persist, a
new specimen should be tested.
08/04/23 11:14 Nasal Swab Influenza Types A & B (MONTY) - Final
Negative for Influenza A & B, NAAT
Negative results must be combined with clinical observations
and patient history.
Nucleic Acid Amplification test (NAAT)performed on the
[employer] platform.
Diagnostic Testing:
Physical Exam
-
HEENT: Normocephalic and Anicteric
Cardiovascular: S1/S2 and Peripheral Edema (Negative)
Respiratory: Wheeze (Negative), Rales (bibasilar) and Rhonchi (right base up to right mid lung field)
GI: Soft, Non Distended and Non Tender
Neurology: AO x 3 and No Motor Deficits
Skin: Warm and Dry
General: Comfortable
Assessment
-
Assessment: 63-year-old male never smoker with a past medical history of HFrEF, recurrent DVT on Eliquis and rheumatoid arthritis on Enbrel who presents with malaise, generalized weakness and shortness of breath. Of note patient was recently
diagnosed with right lower lobe pneumonia after coming here to the ER on 07/28/2023. He was discharged from the ER with a 5-day course of Augmentin. He had a CT chest without contrast on 07/31/2023 showing a multifocal pneumonia involving the right
lower lobe, left upper lobe and left lower lobe. 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
came to the ER for further evaluation. CXR showed worsening opacification within the right lower lobe as well as increased reticulonodular opacities bilaterally concerning for pneumonia +/- ADHF. Patient required supplemental oxygen and BiPAP
which was difficult to remove due to continued shortness of breath. In the ER patient was hypotensive to 79/57 and tachypneic to 21. Labs showed lactic acidosis to 6.2, hyperglycemia to 305, metabolic acidosis with serum bicarbonate of 18,
leukocytosis to 10.9, Hb 14.9 and platelets 268. COVID antigen was negative. Patient given antibiotics with ceftriaxone, azithromycin. There was initial concern he was volume overloaded hence Lasix 60 mg given as well as nitroglycerin drip but
this lowered his blood pressure further. Nitroglycerin drip was stopped and patient was given IV fluids with 500cc bolus x2. Due to the patient's continued hypoxia requiring BiPAP and considering patient was hypotensive, he was transferred to ICU
for admission and critical care services consulted for additional management/recommendations.
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
Impression:
#Acute respiratory failure with hypoxemia
#Community-acquired pneumonia (multifocal)
#Lactic acidosis - likely due to sepsis without shock
#Elevated troponin -likely due to type II MA in the setting of pneumonia
#Acute HFrEF exacerbation with valvular heart disease involving moderate�severe MR
#Recurrent DVT on Eliquis
#History of sleep apnea
#History of RA on etanercept
Plan:
- By time I saw the patient he was off BiPAP, on nasal cannula and breathing comfortably on mid flow @ 6 L/min
- Titrate supplemental oxygen flow rate to maintain SpO2 >90-94%
- Continue broad-spectrum antibiotics with vancomycin/Zosyn --> once he improves then we can narrow ABx to cefepime; DC IV vanco if MRSA swab negative
- Infectious workup including blood, sputum culture and Legionella/strep pneumo urine antigens; check/trend procal to assure we have source control
- Considering we are treating patient for pneumonia with suspected sepsis, would maintain net neutral volume status and then once infection controlled and he remains hemodynamically stable, can diurese as needed; hence gently diurese
- Hold enbrel given his acute infection
- Ultimately he will need repeat CXR in 4-6 weeks to follow pneumonia to resolution
- Maintain MAP >65
- Maintain euglycemia with goal BG 140�180
- Replete K >4, Mg >2; PO4>3
- Cardiology consulted with recs appreciated
- DVT ppx
Critical care statement: A total of 40 minutes of critical care time was provided for this patient today. This includes management of unstable vital signs, evaluation of the patient at bedside, reviewing the patient's pertinent medical records
including radiographs, microbiology, laboratory evaluations, and discussion with primary team, consultants, pharmacy, nutrition, physical therapy, case management, charge nurse, critical care nursing, and respiratory therapy.
Data:
TTE 08-04-2023:
�1.� Mildly dilated left ventricle with global hypokinesis, EF 35%
�quantitatively but 25% by visual estimate
�2.� Moderate to severe mitral regurgitation with left atrial dilatation
�3.� Trace aortic regurgitation
�4.� Normal right heart, pulmonary artery systolic pressure 31 mmHg
[2023-08-04 17:41] LABS: Lactic Acid 2.3 mmol/L (0.7-2.0)
[2023-08-04 17:53] LABS: Troponin I 0.085 ng/ml
[2023-08-04 17:55] LABS: Procalcitonin 0.41 ng/ml (0.0-0.25)
--- NOTE | 2023-08-04 18:00 | PTCARENOTE ---
weaned off Levo gtt.
[2023-08-04] MEDS: ELIQUIS 5 MG PO (19:23)
--- NOTE | 2023-08-04 19:48 | PTCARENOTE ---
Resumed care of pt laying in bed AAOx3. Pt slightly anxious. Pt reports difficulty being able to void. Bladder scanned for >1300ml. Pt assisted to stand at bedside. Pt able to void 650ml at this time. Pt assisted back to bed and positioned per
comfort. HR in the 90's in NSR at rest, ST in low 100's with activity. POX 100% on 6 LO2 Mid Flow NC. Lungs dec @ bases, scattered rhonchi on right, course anteriorly. Tachypneic/ CARLOS. Occ moist productive cough, clear frothy sputum. + bowel, round
dist abd. Weak pedal pulses. Trace LE edema. Brown shiny PVD legs. Left anterior leg scab open to air. Pt reports recent fall and some mild pain from bruised ribs. Pt also has RA which limits his dexterity and difficulty with hand grasps. B/L AC
int in place, capped at this time. No issues to report. Will continue to monitor.
[2023-08-04 21:09] LABS: APTT 28.3 Sec (23.4-35.0); INR 1.29; PT 15.9 Sec (11.4-14.6)
[2023-08-04 21:11] LABS: Lactic Acid 1.3 mmol/L (0.7-2.0)
[2023-08-05] VITALS (58 sets, daily range): BP systolic 78–126; BP diastolic 44–108; PULSE 2–76; BMI 21.6
--- NOTE | 2023-08-05 | PTCARENOTE ---
Pt sleeping with Bipap in place 05/26 with 3 LO2. BP with MAP <65- Levophed started to keep MAP>65. NO other changes in assessment noted at this time. Will continue to monitor.
[2023-08-05] MEDS: ZOSYN 50 IV ×4 (03:44→22:10)
--- NOTE | 2023-08-05 04:00 | PTCARENOTE ---
Pt sleeping intermittently. pt denies any complaints. Levophed continues to infuse @6mcg/min to keep MAP>65. No changes in assessment noted at this time. Will continue to monitor.
[2023-08-05 04:21] LABS: % Basophils 0.6 % (0-2); % Eosinophils 1.4 % (0-6); % Immature Granulocytes 0.2 % (0-0.5); % Lymphocytes 35.1 % (20.5-51.1); % Monocytes 12.8 % (1.7-9.3); % Neutrophils 49.9 % (42.2-75.2); Absolute Basophils 0.1 10^3/uL (0-0.2); Absolute Eosinophils 0.1 10^3/uL (0-0.7); Absolute Lymphocytes 2.8 10^3/uL (1.2-3.4); Hematocrit 31.3 % (39.0-52.0); Mean Corp Hgb Conc. 36.4 g/dL (33.0-37.0); Mean Corpuscular Hgb 31.8 pg (27.0-31.0); Mean Corpuscular Volume 87.2 fL (80.0-94.0); Mean Platelet Volume 10.8 fL (7.4-10.4); Nucleated Red Blood Cells % 0 % (-); Platelet Count 194 10^3/uL (130-400); Red Blood Cell Count 3.59 10^6/uL (4.70-6.10); Red Cell Dist. Width 12.6 % (11.5-14.5); White Blood Cell Count 8.1 10^3/uL (4.8-10.8)
[2023-08-05 04:24] LABS: Hemoglobin 11.4 g/dL (13.0-18.0)
[2023-08-05 04:42] LABS: Vancomycin Random 11.8 ug/ml
[2023-08-05 04:49] LABS: ALT (SGPT) 33 U/L (0-50); AST (SGOT) 35 U/L (17-59); Albumin 3.3 g/dl (3.5-5.0); Alkaline Phosphatase 53 U/L (38-126); Blood Urea Nitrogen 15 mg/dl (9-20); Calcium 7.9 mg/dl (8.4-10.2); Carbon Dioxide 18 mmol/L (22-30); Chloride 111 mmol/L (98-107); Direct Bilirubin 0.4 mg/dl (0.0-0.4); Estimated Creatinine Clearance 93 ml/min; Glucose 101 mg/dl (70-99); Magnesium 1.9 mg/dl (1.6-2.3); Potassium 3.6 mmol/L (3.5-5.1); Sodium 136 mmol/L (135-145); Total Bilirubin 0.9 mg/dl (0.2-1.3); Total Protein 5.9 g/dl (6.3-8.2); eGFR > 60.00
[2023-08-05 04:57] LABS: Troponin I 0.045 ng/ml
[2023-08-05 05:16] LABS: TSH 0.91 uIU/ml (0.47-4.68)
[2023-08-05] MEDS: KCL 160 MEQ IV (05:50)
--- NOTE | 2023-08-05 07:12 | PTCARENOTE ---
Received patient frmo night time nanny. Patient AAOx3, pleasant. Placed patient on 3L nasal cannula and took off bipap. Patient is sinus rhythm on monitor., Levo gtt at 4mcg and will attempt to wean off. Lungs auscultated, diminished in bases, right
side more clear today. Patient states he feels much better, denies shortness of breath, is able to have conversation without becoming dyspneic. Patient is ordered diet, assisted in ordering, he is using urinal to urinate at bedside. He is able
to make needs known, call victoria within reach.
[2023-08-05] MEDS: LASIX 40 MG IV (07:32)
[2023-08-05] MEDS: ELIQUIS 5 MG PO ×2 (07:32→19:52)
[2023-08-05] MEDS: PROTONIX IV 40 MG IV (07:32)
[2023-08-05] MEDS: NSS (PRESERVATIVE FREE) 10 ML IV (07:33)
--- NOTE | 2023-08-05 09:13 | W.PN.INTV ---
Today's Communication / Plan
Recommendations
Abx
CPAP with sleep using patient's own machine
Repeat CXR in 4-6 weeks to follow PNA to resolution
Maintain net neutral-slightly net negative fluid balance for next 24 hrs given acute infection
Patient stable for TRX out of ICU to telemetry. Pulmonary service will continue to follow along.
Assessment
-
Assessment: 63-year-old male never smoker with a past medical history of HFrEF, recurrent DVT on Eliquis and rheumatoid arthritis on Enbrel who presents with malaise, generalized weakness and shortness of breath. Of note patient was recently
diagnosed with right lower lobe pneumonia after coming here to the ER on 07/28/2023. He was discharged from the ER with a 5-day course of Augmentin. He had a CT chest without contrast on 07/31/2023 showing a multifocal pneumonia involving the right
lower lobe, left upper lobe and left lower lobe. 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
came to the ER for further evaluation. CXR showed worsening opacification within the right lower lobe as well as increased reticulonodular opacities bilaterally concerning for pneumonia +/- ADHF. Patient required supplemental oxygen and BiPAP
which was difficult to remove due to continued shortness of breath. In the ER patient was hypotensive to 79/57 and tachypneic to 21. Labs showed lactic acidosis to 6.2, hyperglycemia to 305, metabolic acidosis with serum bicarbonate of 18,
leukocytosis to 10.9, Hb 14.9 and platelets 268. COVID antigen was negative. Patient given antibiotics with ceftriaxone, azithromycin. There was initial concern he was volume overloaded hence Lasix 60 mg given as well as nitroglycerin drip but
this lowered his blood pressure further. Nitroglycerin drip was stopped and patient was given IV fluids with 500cc bolus x2. Due to the patient's continued hypoxia requiring BiPAP and considering patient was hypotensive, he was transferred to ICU
for admission and critical care services consulted for additional management/recommendations.
Chronic conditions GLUE MIXER: HFrEF, rheumatoid arthritis on Enbrel, hypertension, recurrent DVT on Eliquis
Impression:
#Acute respiratory failure with hypoxemia
#Community-acquired pneumonia (multifocal)
#Lactic acidosis - likely due to sepsis without shock - lactate level now normalized
#Elevated troponin -likely due to type II [place] in the setting of pneumonia - cTnI peaked at 0.085
#Acute HFrEF exacerbation with valvular heart disease involving moderate�severe MR
#Recurrent DVT on Eliquis
#History of sleep apnea on CPAP
#History of RA on etanercept
Plan:
- Patient doing well, currently on room air, denies SOB, and saturating well >93% and is HDN stable
- Continue CPAP with sleep, and ok for us to use patient's machine (he has it with him)
- Titrate supplemental oxygen flow rate to maintain SpO2 >90-94%
- Continue broad-spectrum antibiotics with Zosyn -->IV vanco DC'd due to negative MRSA swab; once he improves then we can narrow ABx to cefepime
- Follow up infectious workup including blood, sputum culture; negative legionella/strep pneumo urine antigens; trend procal to assure we have source control
- Considering we are treating patient for pneumonia with suspected sepsis, would maintain net neutral volume status and then once infection controlled and he remains hemodynamically stable, can diurese as needed; hence gently diurese
- Hold Enbrel given his acute infection
- Ultimately he will need repeat CXR in 4-6 weeks to follow pneumonia to resolution
- Maintain MAP >65
- Maintain euglycemia with goal BG 140�180
- Replete K >4, Mg >2; PO4>3
- Cardiology consulted with recs appreciated
- DVT ppx
Dispo: Patient stable for TRX OOU to telemetry. Pulmonary service will continue to follow along.
Data:
CXR 08-04-2023:
Increased reticulonodular opacity throughout both lungs with indistinctness of the central pulmonary vasculature, with suggestion of Francisco B lines. Slightly greater confluence in the lung bases. Findings are felt to be most suggestive of pulmonary
edema pattern, possibly on the basis of congestive heart failure.
Main differential consideration of bilateral pneumonia.
TTE 08-04-2023:
�1.� Mildly dilated left ventricle with global hypokinesis, EF 35%
�quantitatively but 25% by visual estimate
�2.� Moderate to severe mitral regurgitation with left atrial dilatation
�3.� Trace aortic regurgitation
�4.� Normal right heart, pulmonary artery systolic pressure 31 mmHg
Subjective Dataa
Subjective Data
Date of Service:
Date of Service: August 05, 2023
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
Subjective:
Pt seen this AM. Was unable to sleep overnight - no particular reason given. BP currently 111/68; wore BiPAP overnight, and BP dropped requiring Levophed at 6mcg/min. This AM he is on room air and SpO2 95%, HR 109. Currently he is off levophed.
He feels 'much better' today. Denies SOB currently. DEnies chest pain, SAN[place], abd pain, N/V/f/c.
Review of Systems
General: Other (neg unless mentioned above)
Objective Data
Data Reviewed
Vital Signs / I&O / Oxygen:
Vital Signs
Temp Pulse Resp BP Pulse Ox
97.8 F 85 9 111/68 94
08/05/23 07:40 08/05/23 11:30 08/05/23 11:30 08/05/23 11:13 08/05/23 11:30
Intake and Output
08/04/23 08/05/23 08/06/23
06:59 06:59 06:59
Intake Total 1462.5 / 1477.5 705 / 705
Output Total 1250 / 1250 1450 / 1450
Balance 212.5 / 227.5 -745 / -745
SaO2 94
Nasal Cannula flow liters per 3
minute
Physical Exam
General: Comfortable
HEENT: Normocephalic and Anicteric
Cardiovascular: S1-S2 and Peripheral Edema (negative)
Respiratory: Wheeze (negative), Crackles (negative), Rhonchi (RLL) and Non-Labored Respirations
GI: Soft, Non Distended, Non Tender and Normal Bowel Sounds
Neurology: AO x 3 and No Motor Deficits
Skin: Warm and Dry
Labs/Micro/Reports
Lab Data
08/05/23 03:41
08/05/23 03:41
Laboratory Results
08/04/23 08/04/23 08/04/23
13: 17:10 20:52
PT Cancelled 15.9 H
INR Cancelled 1.29
APTT Cancelled 28.3
pH 7.40
pCO2 28 L
pO2 67 L
HCO3 17.3 L
O2 Delivery Level
Microbiology
08/04/23 11:24 Blood/Venous Blood Culture - Preliminary
No Growth in 24 hours- Final report to follow
08/04/23 11:24 Blood/Venous Blood Culture - Preliminary
No Growth in 24 hours- Final report to follow
08/04/23 22:36 Urine Legionella Urinary Antigen - Final
Negative for Legionella pneumophila Serogroup 1 antigen.
A negative result does not rule out the possiblity of
Legionella infection due to other serogroups or species of
Legionella. Clinical correlation is recommended.
08/04/23 22:36 Urine Streptococcus pneumoniae Antigen (M - Final
Negative for Streptococcus pneumoniae antigen.
A negative result does not exclude infection with
Streptococcus pneumoniae. Clinical correlation is
recommended.
08/04/23 17:24 Nose Nasal Screen MRSA (PCR) - Final
MRSA not detected - performed by PCR methodology.
08/04/23 13:01 Nasal Swab Respiratory Syncytial Virus Culture - Final
Negative for Respiratory Syncytial Virus.
A false negative result may be obtained with a specimen
collected early in the acute phase. If symptoms persist, a
new specimen should be tested.
08/04/23 11:14 Nasal Swab Influenza Types A & B (MONTY) - Final
Negative for Influenza A & B, NAAT
Negative results must be combined with clinical observations
and patient history.
Nucleic Acid Amplification test (NAAT)performed on the
[employer] platform.
[2023-08-05 09:29] LABS: Glycohemoglobin (HgbA1c) 5.6 % (4.0-5.6)
--- NOTE | 2023-08-05 09:32 | PTCARENOTE ---
walked patient to bathroom, remained 95% on room air. off levo gtt, off supplemental oxygen
--- NOTE | 2023-08-05 09:59 | W.PN.CARDCBS ---
Today's Communication / Plan
-
Agree with gentle IV diuresis - 40mg lasix once daily
Wean pressors as able. GDMT for HFrEF on hold d/t hypotension.
Impression / Plan
-
PCP: Dr. Myers
Cardiology: Dr. Ramsey
Impression:
Acute hypoxic respiratory failure
Sepsis and shock
Acute on chronic HFrEF
Nonischemic CM EF 25-30% by echo 06/12/23 and up a bit to 35% by repeat echo 08/04/23
Normal coronary arteries by cath 06/19/23
Non-OR troponin elevation
HTN
RA on Enbrel
h/o DVT in 2014 and again 04/2023
Chronic Eliquis OAC
MATTY on CPAP
Echo 06/12/23: EF 25-30%, mod MR, mild TR with PAP 25-30 mmHg
Echo 08/04/23: EF 35% quantitatively but 25% by visual estimate, mod to sev MR
Patient came to [facility] today with increasing SOB and cough and is admitted with sepsis and acute HF, cardiology consulted. Patient saw Dr. Ramsey for a new patient visit 06/12/23 after an echo that same day showed a refused EF and mod MR. Echo was
ordered by his PCP for CARLOS and fatigue. Patient was scheduled for cardiac cath that showed normal coronary arteries on 06/19/23. GDMT has included Coreg and lisinopril. Patient was scheduled for a follow up visit 08/10/23, but came to [facility] today due
to progressive SOB. Patient was diagnosed with PNA and started on Augmentin by his PCP 3 days ago, but no improvement in SOB or cough. Paramedics reported patient had an initial pulse ox in the 70s upon their arrival and patient was given NTG SL x2
and started on CPAP. In [facility] he was started on a Nitro gtt and given Lasix with improvement in SOB. CT chest showed PNA without evidence of PE and so Nitro gtt was stopped and antibiotics started.
Plan:
-Initially required BiPAP, respiratory status has improved with IV lasix, currently on supplemental O2 via NC
-Agree with gentle diuresis to improve respiratory status
-Echo repeated, EF is stable
-GDMT on hold for hypotension, required pressor support overnight. Prior to admission was on Coreg 3.125 mg BID and lisinopril 2.5 mg daily, will attempt to add back as BP improves. Could consider adding SGLT2 around time of discharge.
-Troponin peaked at 0.085 - suspect non-OR troponin elevation 2/2 decompensated HF
-TTE without SWMA
-Normal coronary arteries by cath 06/12/24.
-Patient is chronically on Eliquis for h/o recurrent DVT
Progress Note - Commercial Retoucher
Subjective
Date of Service: August 05, 2023
NAOE. Tells me breathing is significantly improved today. No longer requiring bipap support, on supplemental O2. No CP or pressure. No LE edema.
Objective
Labs:
08/05/23 03:41
08/05/23 03:41
Labs
Hgb 11.4 g/dL (13.0-18.0) L D 08/05/23 03:41
Hct 31.3 % (39.0-52.0) L 08/05/23 03:41
Plt Count 194 10^3/uL (130-400) D 08/05/23 03:41
PT 15.9 Sec (11.4-14.6) H 08/04/23 20:52
INR 1.29 08/04/23 20:52
APTT 28.3 Sec (23.4-35.0) 08/04/23 20:52
Sodium 136 mmol/L (135-145) 08/05/23 03:41
Potassium 3.6 mmol/L (3.5-5.1) 08/05/23 03:41
BUN 15 mg/dl (9-20) 08/05/23 03:41
Creatinine 0.9 mg/dL (0.7-1.3) 08/05/23 03:41
Glucose 101 mg/dl (70-99) H 08/05/23 03:41
Troponins
08/04/23 08/04/23 08/04/23
11:07 13:21 17:18
Troponin I < 0.012 Cancelled 0.085 H* D
08/05/23
03:41
Troponin I 0.045 H*
Vital Signs and I&O:
Vital Signs
Temp Pulse Resp BP Pulse Ox
97.8 F 93 19 96/68 95
08/05/23 07:40 08/05/23 09:30 08/05/23 09:30 08/05/23 09:30 08/05/23 09:30
Vital Signs
Temp Pulse Resp BP Pulse Ox
97.8 F 93 19 96/68 95
08/05/23 07:40 08/05/23 09:30 08/05/23 09:30 08/05/23 09:30 08/05/23 09:30
Intake & Output
08/03/23 08/04/23 08/05/23 08/06/23
06:59 06:59 06:59 06:59
Intake Total 1462.5 / 1477.5 255 / 255
Output Total 1250 / 1250 1050 / 1050
Balance 212.5 / 227.5 -795 / -795
Physical Exam
Physical Exam
Gen: NAD, AAOx3
HEENT: NC/AT, sclera anicteric
Neck: No JVD
CV: RRR, NL s1/s2, no M/R/G
Lungs: CTAB on 4L NC
Abd: S/ND
Ext: No LE edema
Skin: Warm, dry
Neuro: Non-focal
--- NOTE | 2023-08-05 13:17 | PTCARENOTE ---
No change in patient's assessment. Patient downgraded to IMU status.
--- NOTE | 2023-08-05 15:56 | CM ---
CM following re: discharge planning.
Reviewed pt's chart, met with pt.
Pt is a 63 year old male, admitted with primary dx of Sepsis.
Pt reports he lives with spouse 2SH, 2 steps to enter, has 2 supportive children. 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 No DME, VN or SNF history.
PCP: Vale Myers
Pharmacy: [facility].
D/C plan: home with anticipated no needs. Spouse to transport at discharge.
CM will follow with discharge plan updates as hospitalization progresses
--- NOTE | 2023-08-05 19:27 | W.PN.HOSP.TC ---
Today's Communication/Plan
-
Doing better
Please see below
Assessment / Plan
Assessment / Plan
Physical Exam
General: Not in acute distress.
HEENT: Normocephalic
Respiratory: Rhonchi
Cardiac: S1/S2 and Regular Rhythm
GI: Soft and Non Tender. Positive bowel sounds.
Musculoskeletal: No Cyanosis and No Edema
Skin: Warm
Neuro: Awake, Alert, Oriented and AO x 3
Hematologic/Lymphatic: No Lymphadenopathy
Psych: Calm

Echocardiogram, as per systems applications programming lead's report:
'CONCLUSIONS
1. Mildly dilated left ventricle with global hypokinesis, EF 35%
quantitatively but 25% by visual estimate
2. Moderate to severe mitral regurgitation with left atrial dilatation
3. Trace aortic regurgitation
4. Normal right heart, pulmonary artery systolic pressure 31 mmHg'

Assessment/Plan
#Acute hypoxic respiratory failure 2/2 pneumonia, with unspecified organism
#Community-acquired pneumonia (multifocal)
#Septic shock (elevated lactate, dyspnea, hypotension)2/2 above
Now off BiPAP to nasal cannula
Titrate supplemental oxygen flow rate to maintain SpO2 >90-94%
Vanco stopped as MRSA negative
Continue Zosyn
legionella and S/Pneumonia Urinary Ag: both negative
Sputum Cx idf possible
Sculpture Conservator consult
BiPAP as needed
#Lactic acidosis - likely due to sepsis without shock - lactate level now normalized
#Elevated troponin -likely due to type II [place] in the setting of pneumonia - cTnI peaked at 0.085
#Acute on chronic HFrEF exacerbation with noniscemic CM (cath in May 2023)
#History of nonischemic cardiomyopathy ejection fraction of 30 to 35%
#Pulmonary HTN
#Mitral regurgitation
EF 30% 1 year ago -- echocardiogram is unchanged
ProBNP elevated when compated to one done 1 week ago
Lasix as tolerated (continue IV Lasix 40 mg daily)
Follow electrolytes, daily weight and strict I&O
Low sodium diet wean off BiPAP
Cardiology consulted, recommendations appreciated
Will need to consider adding Aldactone, Farxiga and Jardiance but only as tolerated
resume Coreg 3.125 mg BID and lisinopril 2.5 mg daily when able
Follow-up TSH
Replace electrolytes to maintain K >4, Mg >2; PO4>3
Patient will need repeat CXR in 4-6 weeks to follow pneumonia to resolution
#Dizziness
Suspected is related to hypotension
#Recurrent DVT on chronic Eliquis
#Essential Hypertension
cont Eliquis
Hold antihypertensives until shcock resolves
Low suspiscion for VTE since patient was compliant with medications at home
#Rheumatoid Arthritis
-On Etanercept outpatient --> hold this medication due to infection
#Sleep Apnea
-On CPAP at home
Full code
Discussed with bedside
DVT ppx - Eliquis
PPI for PPX
Anticipated Discharge: > 48 hours
Subjective/Interval History
-
Date of Service: August 05, 2023
Patient was seen and examined. He reported feeling better today, he indicated that at least for the most part his shortness of breath and palpitations had resolved.
Objective Data
-
Vital Signs:
Vital Signs
Temp Pulse Resp BP Pulse Ox
98.1 F 100 26 89/63 92
08/05/23 15:00 08/05/23 18:15 08/05/23 18:15 08/05/23 18:00 08/05/23 18:15
I&O
08/04/23 08/05/23 08/06/23
06:59 06:59 06:59
Intake Total 1462.5 / 1477.5 705 / 705
Output Total 1250 / 1250 1450 / 1450
Balance 212.5 / 227.5 -745 / -745
[2023-08-05] MEDS: COREG PO (22:09)
[2023-08-06] VITALS (17 sets, daily range): BP systolic 73–109; BP diastolic 48–79; PULSE 102–104; O2SAT 98; BMI 21.5
[2023-08-06] MEDS: ZOSYN 50 IV ×4 (04:43→21:13)
[2023-08-06 05:04] LABS: % Immature Granulocytes 0.1 % (0-0.5); % Monocytes 15.1 % (1.7-9.3); % Neutrophils 33.8 % (42.2-75.2); Absolute Basophils 0.1 10^3/uL (0-0.2); Absolute Eosinophils 0.3 10^3/uL (0-0.7); Absolute Lymphocytes 3.3 10^3/uL (1.2-3.4); Absolute Monocytes 1.1 10^3/uL (0.1-0.6); Absolute Neutrophils 2.4 10^3/uL (1.4-6.5); Hematocrit 34.1 % (39.0-52.0); Hemoglobin 12.3 g/dL (13.0-18.0); Mean Corp Hgb Conc. 36.1 g/dL (33.0-37.0); Mean Corpuscular Hgb 31.9 pg (27.0-31.0); Mean Corpuscular Volume 88.6 fL (80.0-94.0); Mean Platelet Volume 10.8 fL (7.4-10.4); Nucleated Red Blood Cells % 0 % (-); Platelet Count 174 10^3/uL (130-400); Red Blood Cell Count 3.85 10^6/uL (4.70-6.10); Red Cell Dist. Width 12.7 % (11.5-14.5); White Blood Cell Count 7.1 10^3/uL (4.8-10.8)
[2023-08-06 05:32] LABS: Procalcitonin 0.35 ng/ml (0.0-0.25)
[2023-08-06 05:49] LABS: Blood Urea Nitrogen 20 mg/dl (9-20); Calcium 9.1 mg/dl (8.4-10.2); Carbon Dioxide 22 mmol/L (22-30); Chloride 105 mmol/L (98-107); Estimated Creatinine Clearance 93 ml/min; Glucose 97 mg/dl (70-99); Magnesium 2.1 mg/dl (1.6-2.3); Phosphorus 4.2 mg/dl (2.5-4.5); Sodium 136 mmol/L (135-145); eGFR > 60.00
--- NOTE | 2023-08-06 07:15 | PTCARENOTE ---
vitals filed from previous shift.
[2023-08-06] MEDS: LASIX 40 MG IV (07:50)
[2023-08-06] MEDS: COREG PO (07:50)
[2023-08-06] MEDS: ELIQUIS 5 MG PO ×2 (07:50→21:13)
--- NOTE | 2023-08-06 09:18 | W.PN.PUL3 ---
Today's Communication / Plan
-
Abx - narrow starting tomorrow to cefepime. Complete 7-10 days of Abx
CPAP with sleep using patient's own machine
Repeat CXR in 4-6 weeks to follow PNA to resolution
Maintain net neutral-slightly net negative fluid balance for next 24 hrs given acute infection
Outpatient follow-up with us in the office for posthospitalization visit, to manage his sleep apnea, and also to obtain PFTs given his history of RA
Assessment
-
Assessment:��63-year-old male never smoker with a PMHx of HFrEF, recurrent DVT on Eliquis and rheumatoid arthritis on Enbrel who presented with malaise, generalized weakness and shortness of breath.� Of note patient was recently diagnosed with right
lower lobe pneumonia after coming here to the ER on 07/28/2023 and discharged home with Augmentin. CT chest from 07/31/2023 showed multifocal pneumonia. He has been having worsening fatigue and shortness of breath in the last 1-2 days which culminated
in severe lightheadedness. In the ER, he was placed onto BiPAP and there was concern for heart failure and he was initially diuresed and started on nitroglycerin drip which caused hypotension. He then was given fluids with nitroglycerin drip
stopped, and still required BiPAP. Due to his severe respiratory distress and hemodynamic instability, he was transferred to the ICU for further care and critical care services consulted for additional management/recommendations.
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
Impression:
#Acute respiratory failure with hypoxemia
#Community-acquired pneumonia (multifocal)
#Lactic acidosis - likely due to sepsis without shock - lactate level now normalized
#Elevated troponin -likely due to type II OH in the setting of pneumonia - cTnI peaked at 0.085
#Acute HFrEF exacerbation with valvular heart disease involving moderate�severe MR
#Recurrent DVT on Eliquis
#History of sleep apnea on CPAP
#History of RA on etanercept
Plan:
- Patient doing well, currently on room air, denies SOB, and saturating well >93% and is HDN stable
- Continue CPAP with sleep, and ok for us to use patient's machine (he has it with him)
- Titrate supplemental oxygen flow rate to maintain SpO2 >90-94%
- Continue broad-spectrum antibiotics with Zosyn -->IV vanco DC'd due to negative MRSA swab; ok to narrow ABx to cefepime - would complete 7-10 day course
- Follow up infectious workup including blood, sputum culture; negative legionella/strep pneumo urine antigens; trend procal to assure we have source control
- Considering we are treating patient for pneumonia with suspected sepsis, would maintain net neutral volume status and then once infection controlled and he remains hemodynamically stable, can diurese as needed; hence gently diurese
- Hold Enbrel given his acute infection
- Ultimately he will need repeat CXR in 4-6 weeks to follow pneumonia to resolution
- Maintain MAP >65
- Maintain euglycemia with goal BG 140�180
- Replete K >4, Mg >2; PO4>3
- Cardiology consulted with recs appreciated
- DVT ppx
Pulmonary will continue to briefly follow.
Patient has seen us in the office on 07/20/2023, and he should see us again following discharge. He also should see cardiology following discharge.
Data:
CXR 08-04-2023:
Increased reticulonodular opacity throughout both lungs with indistinctness of the central pulmonary vasculature, with suggestion of Francisco B lines. Slightly greater confluence in the lung bases. Findings are felt to be most suggestive of pulmonary
edema pattern, possibly on the basis of congestive heart failure.
Main differential consideration of bilateral pneumonia.
TTE 08-04-2023:
�1.� Mildly dilated left ventricle with global hypokinesis, EF 35%
�quantitatively but 25% by visual estimate
�2.� Moderate to severe mitral regurgitation with left atrial dilatation
�3.� Trace aortic regurgitation
�4.� Normal right heart, pulmonary artery systolic pressure 31 mmHg
Left and right heart catheterization - 06-19-2023:
1.� Moderately elevated left ventricular filling pressures (LVEDP 39 mmHg and PCWP: 29 mmHg) and mildly elevated right ventricular filling pressures (RA: 14 mmHg).� Normal SVR and PVR
2.� Normal coronary arteries
3.� Moderate LV dysfunction with 2+ mitral regurgitation
Subjective Data
-
Date of Service:
Date of Service: August 06, 2023
Chief Complaint: Pulmonary Follow Up
Subjective:
Patient seen this morning, at bedside. He is on room air. No issues overnight. He still continues to feel better. He denies any chest pain currently, denies shortness of breath at rest but when he does speak a lot he does become short of
breath. He is able to walk around the room/unit without any significant difficulty breathing. Denies fevers or chills.
Review of Systems
General: Other (12 point ROS performed and is negative unless mentioned above.)
Objective Data
Data Reviewed
Vital Signs / I&O / Oxygen:
Vital Signs
Temp Pulse Resp BP Pulse Ox
98.2 F 102 24 92/64 97
08/06/23 08:18 08/06/23 09:00 08/06/23 07:30 08/06/23 07:50 08/06/23 08:00
Intake and Output
08/05/23 08/06/23 08/07/23
06:59 06:59 06:59
Intake Total 1462.5 / 1477.5 1005 / 1005 360 / 360
Output Total 1250 / 1250 1450 / 1450
Balance 212.5 / 227.5 -445 / -445 360 / 360
SaO2 97
Nasal Cannula flow liters per 3
minute
Physical Exam
General: Comfortable
HEENT: Normocephalic and Anicteric
Cardiovascular: S1-S2 and Peripheral Edema (negative)
Respiratory: Wheeze (negative), Crackles (faint at RLL), Rhonchi (faint at RLL) and Non-Labored Respirations
GI: Soft, Non Distended, Non Tender and Normal Bowel Sounds
Neurology: AO x 3
Skin: Warm and Dry
Labs/Micro/Reports
Lab Data
08/06/23 04:39
08/06/23 04:39
Microbiology
08/04/23 11:24 Blood/Venous Blood Culture - Preliminary
No Growth in 24 hours- Final report to follow
08/04/23 11:24 Blood/Venous Blood Culture - Preliminary
No Growth in 24 hours- Final report to follow
08/04/23 22:36 Urine Legionella Urinary Antigen - Final
Negative for Legionella pneumophila Serogroup 1 antigen.
A negative result does not rule out the possiblity of
Legionella infection due to other serogroups or species of
Legionella. Clinical correlation is recommended.
08/04/23 22:36 Urine Streptococcus pneumoniae Antigen (M - Final
Negative for Streptococcus pneumoniae antigen.
A negative result does not exclude infection with
Streptococcus pneumoniae. Clinical correlation is
recommended.
08/04/23 17:24 Nose Nasal Screen MRSA (PCR) - Final
MRSA not detected - performed by PCR methodology.
08/04/23 13:01 Nasal Swab Respiratory Syncytial Virus Culture - Final
Negative for Respiratory Syncytial Virus.
A false negative result may be obtained with a specimen
collected early in the acute phase. If symptoms persist, a
new specimen should be tested.
08/04/23 11:14 Nasal Swab Influenza Types A & B (MONTY) - Final
Negative for Influenza A & B, NAAT
Negative results must be combined with clinical observations
and patient history.
Nucleic Acid Amplification test (NAAT)performed on the
[employer] platform.
--- NOTE | 2023-08-06 09:53 | W.PN.CARDCBS ---
Today's Communication / Plan
-
-Change Lasix to 20 oral daily
-Continue carvedilol low-dose
-Eventually as outpatient if blood pressure tolerates reinstitute further guideline directed medical therapy
-Follow MR as an outpatient
-Reassess Left ventricular ejection fraction in August (after September 10) to determine whether patient at that time qualifies for ICD for primary prevention
-Consider outpatient MRI given unknown etiology of cardiomyopathy
Impression / Plan
-
PCP: Dr. Myers
Cardiology: Dr. Ramsey
Impression:
Acute hypoxic respiratory failure
Sepsis and shock/pneumonia
Acute on chronic HFrEF
Nonischemic CM EF 25-30% by echo 06/12/23 and 35% (25% visual) by repeat echo 08/04/23
Moderate to severe mitral regurgitation
Normal coronary arteries by cath 06/19/23
Non-AK troponin elevation
Low blood pressure
HTN
RA on Enbrel
h/o DVT in 2014 and again 04/2023
Chronic Eliquis OAC
MATTY on CPAP
Echo 06/12/23: EF 25-30%, mod MR, mild TR with PAP 25-30 mmHg
Echo 08/04/23: EF 35% quantitatively but 25% by visual estimate, mod to sev MR
Plan:
Admitted for acute hypoxemic respiratory failure with acute on chronic heart failure with reduced ejection fraction (newly diagnosed 05/2023) and pneumonia for which she is on IV antibiotics
-Initially required BiPAP, respiratory status has improved with IV lasix, currently on supplemental O2 via NC
-Volume status clinically appears stable. Change to Lasix 20 mg daily.
-Echo repeated, EF is still reduced
-GDMT difficult to implement given continued low blood pressure/asymptomatic hypotension, no longer requiring pressors. Prior to admission was on Coreg 3.125 mg BID and lisinopril 2.5 mg daily. Continue carvedilol. Eventually likely as an
outpatient reinstitute lisinopril (suspect Entresto with lower blood pressure too much but will continue to reassess), eventually consider SGLT2 inhibitor and Aldactone. May never be able to achieve this unless blood pressure improves.
-At the 3-month cheyanne (after September 10) if ejection fraction has not improved given risk of sudden cardiac would proceed with consideration for dual-chamber ICD, will be discussed in the office at next visit.
-Consider outpatient cardiac MRI prior to device implant given unknown etiology of cardiomyopathy
-Troponin peaked at 0.085 - suspect non-AK troponin elevation 2/ decompensated HF
-TTE without SWMA
-Moderate to severe mitral regurgitation needs to be followed closely.
-Normal coronary arteries by cath 06/12/23.
-Patient is chronically on Eliquis for h/o recurrent DVT
-Continue treatment of septic shock/pneumonia.
Patient has appointment 08/10 in our office. If he is not discharged this may need to be altered.
Patient came to [facility] today with increasing SOB and cough and is admitted with sepsis and acute HF, cardiology consulted. Patient saw Dr. Ramsey for a new patient visit 06/12/23 after an echo that same day showed a refused EF and mod MR. Echo was
ordered by his PCP for CARLOS and fatigue. Patient was scheduled for cardiac cath that showed normal coronary arteries on 06/19/23. GDMT has included Coreg and lisinopril. Patient was scheduled for a follow up visit 08/10/23, but came to [facility] today due
to progressive SOB. Patient was diagnosed with PNA and started on Augmentin by his PCP 3 days ago, but no improvement in SOB or cough. Paramedics reported patient had an initial pulse ox in the 70s upon their arrival and patient was given NTG SL x2
and started on CPAP. In [facility] he was started on a Nitro gtt and given Lasix with improvement in SOB. CT chest showed PNA without evidence of PE and so Nitro gtt was stopped and antibiotics started.
Progress Note - Food Management Aide
Subjective
Date of Service: August 06, 2023
He is feeling okay except for some loose stools. He denies chest pain and palpitations.
Objective
Labs:
02/15/24 04:39
08/06/23 04:39
Labs
Hgb 12.3 g/dL (13.0-18.0) L 08/06/23 04:39
Hct 34.1 % (39.0-52.0) L 08/06/23 04:39
Plt Count 174 10^3/uL (130-400) 08/06/23 04:39
PT 15.9 Sec (11.4-14.6) H 08/04/23 20:52
INR 1.29 08/04/23 20:52
APTT 28.3 Sec (23.4-35.0) 08/04/23 20:52
Sodium 136 mmol/L (135-145) 08/06/23 04:39
Potassium 4.0 mmol/L (3.5-5.1) 08/06/23 04:39
BUN 20 mg/dl (9-20) 08/06/23 04:39
Creatinine 0.9 mg/dL (0.7-1.3) 08/06/23 04:39
Glucose 97 mg/dl (70-99) 08/06/23 04:39
Troponins
08/04/23 08/04/23 08/04/23
11:07 13:21 17:18
Troponin I < 0.012 Cancelled 0.085 H* D
08/05/23
03:41
Troponin I 0.045 H*
Vital Signs and I&O:
Vital Signs
Temp Pulse Resp BP Pulse Ox
98.2 F 102 24 92/64 97
08/06/23 08:18 08/06/23 09:00 08/06/23 07:30 08/06/23 07:50 08/06/23 08:00
Vital Signs
Temp Pulse Resp BP Pulse Ox
98.2 F 102 24 92/64 97
08/06/23 08:18 08/06/23 09:00 08/06/23 07:30 08/06/23 07:50 08/06/23 08:00
Intake & Output
08/04/23 08/05/23 08/06/23 08/07/23
06:59 06:59 06:59 06:59
Intake Total 1462.5 / 1477.5 1005 / 1005 360 / 360
Output Total 1250 / 1250 1450 / 1450
Balance 212.5 / 227.5 -445 / -445 360 / 360
Physical Exam
Physical Exam
General: Well developed, well nourished in NAD.
Heart: Non displaced PMI, RRR, 2/6 asem , No S3, S4, no rubs.
Lungs: Clear to auscultation bilaterally, no wheeze, rhonchi, rubs bilaterally,
normal expiratory phase.
Abdomen: Normal bowel sounds, soft, non-tender, non-distended.
Extremities: No clubbing, cyanosis or edema bilaterally.
Neuro: Grossly nonfocal, awake, alert and oriented x3.
--- NOTE | 2023-08-06 12:20 | W.PN.HOSP.TC ---
Today's Communication/Plan
-
Hypotension continues but improved this morning
Transfer to tele
Assessment / Plan
Assessment / Plan
Physical Exam
General: Not in acute distress
HEENT: Normocephalic
Respiratory: Clear to Auscultation Bilaterally
Cardiac: S1/S2 and Regular Rhythm
GI: Soft and Non Tender. Positive bowel sounds.
Musculoskeletal: No Cyanosis and No Edema
Skin: Warm
Neuro: Awake, Alert, Oriented and AAO x 3
Psych: Calm

Echocardiogram, as per benzene still utility operator's report:
'CONCLUSIONS
1. Mildly dilated left ventricle with global hypokinesis, EF 35%
quantitatively but 25% by visual estimate
2. Moderate to severe mitral regurgitation with left atrial dilatation
3. Trace aortic regurgitation
4. Normal right heart, pulmonary artery systolic pressure 31 mmHg'

Assessment/Plan
#Acute hypoxic respiratory failure 2/2 pneumonia, with unspecified organism
#Community-acquired pneumonia (multifocal)
#Septic shock (elevated lactate, dyspnea, hypotension)2/2 above
Now off BiPAP to nasal cannula
Titrate supplemental oxygen flow rate to maintain SpO2 >90-94%
Vanco stopped as MRSA negative
Continue Zosyn
legionella and S/Pneumonia Urinary Ag: both negative
Sputum Cx idf possible
Hat Blocker consult recommendations appreciated
BiPAP as needed
#Lactic acidosis - likely due to sepsis without shock - lactate level now normalized
#Elevated troponin -likely due to type II [place] in the setting of pneumonia - cTnI peaked at 0.085
#Acute on chronic HFrEF exacerbation with noniscemic CM (cath in May 2023)
#History of nonischemic cardiomyopathy ejection fraction of 30 to 35%
#Pulmonary HTN
#Mitral regurgitation
EF 30% 1 year ago -- echocardiogram is unchanged
ProBNP elevated when compated to one done 1 week ago
Lasix as tolerated
Status IV Lasix, being switched to PO Lasix at 20 mg daily
Follow electrolytes, daily weight and strict I&O
Low sodium diet wean off BiPAP
Cardiology consulted, recommendations appreciated
Will need to consider adding Aldactone, Farxiga and Jardiance but only as tolerated
resume Coreg 3.125 mg BID
for lisinopril 2.5 mg daily - resume when able as an outpatient
Follow-up TSH
Replace electrolytes to maintain K >4, Mg >2; PO4>3
Patient will need repeat CXR in 4-6 weeks to follow pneumonia to resolution
Per Cardiology:
'-At the 3-month cheyanne (after September 10) if ejection fraction has not improved given risk of sudden cardiac would proceed with consideration for dual-chamber ICD, will be discussed in the office at next visit.
-Consider outpatient cardiac MRI prior to device implant given unknown etiology of cardiomyopathy'
#Hypotension - Symptomatic
-Check TSH and Cortisol
-Goal-directed medical therapy for heart failure is difficult to implement
#Dizziness
Suspected is related to hypotension
#Recurrent DVT on chronic Eliquis
#Essential Hypertension
cont Eliquis
Low suspiscion for VTE since patient was compliant with medications at home
#Rheumatoid Arthritis
-On Etanercept outpatient --> hold this medication due to infection
#Sleep Apnea
-On CPAP at home
Full code
DVT ppx - Eliquis
PPI for PPX
Anticipated Discharge: > 48 hours
Subjective/Interval History
-
Date of Service: August 06, 2023
Patient was seen and examined. He reported no new significant symptoms this morning, he has been hypotensive overnight.
Objective Data
-
Labs:
Laboratory Results
08/06/23
04:39
WBC 7.1
Hgb 12.3 L
Hct 34.1 L
Plt Count 174
Sodium 136
Potassium 4.0
Chloride 105
Carbon Dioxide 22
BUN 20
Creatinine 0.9
Glucose 97
Calcium 9.1
Vital Signs:
Vital Signs
Temp Pulse Resp BP Pulse Ox
97.7 F 82 24 105/69 97
08/06/23 11:28 08/06/23 12:00 08/06/23 07:30 08/06/23 10:48 08/06/23 08:00
I&O
08/05/23 08/06/23 08/07/23
06:59 06:59 06:59
Intake Total 1462.5 / 1477.5 1005 / 1005 360 / 360
Output Total 1250 / 1250 1450 / 1450
Balance 212.5 / 227.5 -445 / -445 360 / 360
--- NOTE | 2023-08-06 12:21 | PTCARENOTE ---
oob in chair, seen by Drs. Benson and Braden. Family bedside. Awaiting tele orders.
--- NOTE | 2023-08-06 14:35 | CM ---
CM following re: discharge planning.
Reviewed pt's chart. Per MD, pt is off Bi-pap, continue supportive care, downgraded from ICU level of care. Per RN, pt ambulates in room, family at bedside.
D/c plan: home with anticipated no needs. Spouse to transport at discharge.
CM will follow with discharge plan updates as hospitalization progresses
--- NOTE | 2023-08-06 14:41 | PTOTSP ---
Pt is functionally independent without AD. PT will sign off.
--- NOTE | 2023-08-06 15:19 | TRANSFER ---
report to next RN, sent via wc to [phone] with all belongings and 1600 dose abx. questions answered, in good spirits. tolerating activity on room air with no SOB. PT in to kaylee braun.
--- NOTE | 2023-08-06 15:55 | PTCARENOTE ---
Received pt from ICU via WC, accompanied by ICU staff. Pt AAO x3, HALLEY well. PLaced on telemetry:NSR/sinus tachy. Currently on room air- puls eox 92%, no c/o SOB. Abd soft, sl rounded, BS (+)> Pt DTV; urinal at bedside. Oriented to 4East,
currently resting comfortably. Will continue to monitor.
[2023-08-06] MEDS: FLUSH (NSS) 1 FLUSH IV (16:29)
[2023-08-06 20:42] LABS: Hepatitis C Antibody Negative (Negative)
[2023-08-06] MEDS: COREG 3.125 MG PO (21:12)
[2023-08-07 03:05] VITALS: BP 91/57
[2023-08-07] MEDS: ZOSYN 50 IV (04:32)
[2023-08-07 06:00] VITALS: BMI 21.0
[2023-08-07 07:05] VITALS: BP 107/73
[2023-08-07 08:28] LABS: % Basophils 0.8 % (0-2); % Eosinophils 5.9 % (0-6); % Immature Granulocytes 0.2 % (0-0.5); % Lymphocytes 44.1 % (20.5-51.1); % Monocytes 16.1 % (1.7-9.3); % Neutrophils 32.9 % (42.2-75.2); Absolute Basophils 0.1 10^3/uL (0-0.2); Absolute Eosinophils 0.4 10^3/uL (0-0.7); Absolute Lymphocytes 2.7 10^3/uL (1.2-3.4); Absolute Neutrophils 2.1 10^3/uL (1.4-6.5); Hematocrit 38.7 % (39.0-52.0); Hemoglobin 13.8 g/dL (13.0-18.0); Mean Corp Hgb Conc. 35.7 g/dL (33.0-37.0); Mean Corpuscular Hgb 31.9 pg (27.0-31.0); Mean Corpuscular Volume 89.4 fL (80.0-94.0); Mean Platelet Volume 10.8 fL (7.4-10.4); Nucleated Red Blood Cells % 0 % (-); Platelet Count 212 10^3/uL (130-400); Red Blood Cell Count 4.33 10^6/uL (4.70-6.10); Red Cell Dist. Width 12.5 % (11.5-14.5); White Blood Cell Count 6.2 10^3/uL (4.8-10.8)
[2023-08-07] MEDS: COREG 3.125 MG PO (09:05)
[2023-08-07] MEDS: LASIX 20 MG PO (09:06)
[2023-08-07] MEDS: ELIQUIS 5 MG PO ×2 (09:06→19:54)
[2023-08-07 09:11] LABS: ALT (SGPT) 38 U/L (0-50); AST (SGOT) 35 U/L (17-59); Albumin 4.4 g/dl (3.5-5.0); Alkaline Phosphatase 56 U/L (38-126); Blood Urea Nitrogen 16 mg/dl (9-20); Calcium 9.4 mg/dl (8.4-10.2); Carbon Dioxide 26 mmol/L (22-30); Chloride 103 mmol/L (98-107); Estimated Creatinine Clearance 82 ml/min; Glucose 98 mg/dl (70-99); Magnesium 2.1 mg/dl (1.6-2.3); Potassium 4.1 mmol/L (3.5-5.1); Sodium 137 mmol/L (135-145); Total Bilirubin 1.1 mg/dl (0.2-1.3); Total Protein 7.4 g/dl (6.3-8.2); eGFR > 60.00
[2023-08-07 09:18] LABS: Cortisol, Random 13.6 ug/dl
--- NOTE | 2023-08-07 09:58 | W.PN.CARDCBS ---
Addendum entered and electronically signed by Shaheen Dior MD 08/07/23 16:16:
I saw and examined the patient.
The Novelties Sales Representative's note was reviewed and I agree with the note.
Comment:
GEN: No distress, awake, Ox3
HEENT: supple, anicteric, mmm
LUNGS: CTA, no wheezes/rales
CV: Reg, S1/S2, 1/6 syst LSB, S3+
ABD: soft, BS+, NT/ND
EXT: No edema
NEURO: Gross non-focal
SKIN: No rash
Plan:
Volume status is overall improved. His blood pressure is better and stable. No further episodes of dizziness/hypotension.
Continue Coreg 3.125 mg twice daily. Continue Lasix 20 mg daily.
Okay for transfer. Consider retrial of MITCHELL/ARB, Aldactone, Jardiance as outpatient.
Would need repeat echo in several months and consideration for ICD.
Original Note:
Today's Communication / Plan
-
Continue PO lasix
Continue coreg and consider resuming lisinopril as OP
Follow up arranged
Impression / Plan
-
PCP: Dr. Myers
Cardiology: Dr. Ramsey
Impression:
Acute hypoxic respiratory failure
Sepsis and shock/pneumonia
Acute on chronic HFrEF
Nonischemic CM EF 25-30% by echo 06/12/23 and 35% (25% visual) by repeat echo 08/04/23
Moderate to severe mitral regurgitation
Normal coronary arteries by cath 06/19/23
Non-NC troponin elevation
Low blood pressure
HTN
RA on Enbrel
h/o DVT in 2014 and again 04/2023
Chronic Eliquis OAC
MATTY on CPAP
Echo 06/12/23: EF 25-30%, mod MR, mild TR with PAP 25-30 mmHg
Echo 08/04/23: EF 35% quantitatively but 25% by visual estimate, mod to sev MR
Plan:
-Admitted with acute hypoxemic respiratory failure in the setting of acute heart failure and pneumonia.
-Initially required BiPAP, respiratory status has improved with IV lasix back to room air.
-Continue PO lasix 20mg daily. Creat stable at 1.0. Weight down to 168lbs, down 10lbs this admission.
-Ambulating around the unit without dizziness or SOB.
-Echo repeated this admission and EF is still reduced. GDMT limited by hypotension.
-Continue coreg 3.125mg BID. Lisinopril remains on hold. Would consider resuming as OP +/- addition of spironolactone and Jardiance as BP allows.
-Recheck echo at 3 month cheyanne (after 09/10). If EF remains reduced, would consider ICD.
-Consider OP cardiac MRI prior to device implant given unknown etiology of cardiomyopathy.
-Troponin peaked at 0.085. Suspect non-NC troponin elevation in the setting of decompensated HF. Normal coronary arteries by cath 06/12/23.
-Patient is chronically on Eliquis for h/o recurrent DVT
-Continue treatment of pneumonia per primary service.
-Follow up arranged for 08/10/2023 w/ Dr. Ramsey.
Patient came to [facility] today with increasing SOB and cough and is admitted with sepsis and acute HF, cardiology consulted. Patient saw Dr. Ramsey for a new patient visit 06/12/23 after an echo that same day showed a refused EF and mod MR. Echo was
ordered by his PCP for CARLOS and fatigue. Patient was scheduled for cardiac cath that showed normal coronary arteries on 06/19/23. GDMT has included Coreg and lisinopril. Patient was scheduled for a follow up visit 08/10/23, but came to [facility] today due
to progressive SOB. Patient was diagnosed with PNA and started on Augmentin by his PCP 3 days ago, but no improvement in SOB or cough. Paramedics reported patient had an initial pulse ox in the 70s upon their arrival and patient was given NTG SL x2
and started on CPAP. In [facility] he was started on a Nitro gtt and given Lasix with improvement in SOB. CT chest showed PNA without evidence of PE and so Nitro gtt was stopped and antibiotics started.
Progress Note - Electronic Train Control Technician
Subjective
Date of Service: August 07, 2023
Feels well this AM, ambulating without SOB or dizziness.
Objective
Labs:
08/07/23 07:14
08/07/23 07:14
Labs
Hgb 13.8 g/dL (13.0-18.0) 08/07/23 07:14
Hct 38.7 % (39.0-52.0) L 08/07/23 07:14
Plt Count 212 10^3/uL (130-400) D 08/07/23 07:14
PT 15.9 Sec (11.4-14.6) H 08/04/23 20:52
INR 1.29 08/04/23 20:52
APTT 28.3 Sec (23.4-35.0) 08/04/23 20:52
Sodium 137 mmol/L (135-145) 08/07/23 07:14
Potassium 4.1 mmol/L (3.5-5.1) 08/07/23 07:14
BUN 16 mg/dl (9-20) 08/07/23 07:14
Creatinine 1.0 mg/dL (0.7-1.3) 08/07/23 07:14
Glucose 98 mg/dl (70-99) 08/07/23 07:14
Troponins
08/04/23 08/04/23 08/04/23
11:07 13:21 17:18
Troponin I < 0.012 Cancelled 0.085 H* D
08/05/23
03:41
Troponin I 0.045 H*
Vital Signs and I&O:
Vital Signs
Temp Pulse Resp BP Pulse Ox
97.5 F 101 16 107/73 99
08/07/23 07:05 08/07/23 07:05 08/07/23 07:05 08/07/23 07:05 08/07/23 07:05
Vital Signs
Temp Pulse Resp BP Pulse Ox
97.5 F 101 16 107/73 99
08/07/23 07:05 08/07/23 07:05 08/07/23 07:05 08/07/23 07:05 08/07/23 07:05
Intake & Output
08/05/23 08/06/23 08/07/23 08/08/23
06:59 06:59 06:59 06:59
Intake Total 1462.5 / 1477.5 1005 / 1005 1250 / 1250
Output Total 1250 / 1250 1450 / 1450 1275 / 1275
Balance 212.5 / 227.5 -445 / -445 -25 / -25
Physical Exam
Physical Exam
GEN: No distress, awake, alert, oriented x3
HEENT: supple, anicteric, mmm
LUNGS: CTA b/l, no wheezes/rales
CV: Reg, S1/S2, 2/6 syst murmur
ABD: soft, BS+, NT/ND
EXT: No clubbing, cyanosis, or edema
NEURO: Gross non-focal
SKIN: Warm, dry, no rash
[2023-08-07 11:20] VITALS: BP 105/70
--- NOTE | 2023-08-07 11:49 | W.PN.PUL3 ---
Today's Communication / Plan
-
Doing well since transfer, remains stable on Ra
Will add IS/acapella
Repeat CXR in AM
Encouraged PT/OT, OOB
Assessment
-
63-year-old male never smoker with a PMHx of HFrEF, recurrent DVT on Eliquis and rheumatoid arthritis on Enbrel who presented with malaise, generalized weakness and shortness of breath.� Of note patient was recently diagnosed with right lower lobe
pneumonia after coming here to the ER on 07/28/2023 and discharged home with Augmentin. CT chest from 07/31/2023 showed multifocal pneumonia. In the ER, he was placed onto BiPAP and there was concern for heart failure and he was initially diuresed and
started on nitroglycerin drip and BIPAP. Due to his severe respiratory distress and hemodynamic instability, he was transferred to the ICU for further care and critical care services consulted for additional management/recommendations.
Impression:
#Acute respiratory failure with hypoxemia
#Community-acquired pneumonia (multifocal)
#Lactic acidosis - likely due to sepsis without shock - lactate level now normalized
#Elevated troponin -likely due to type II [place] in the setting of pneumonia - cTnI peaked at 0.085
#Acute HFrEF exacerbation with valvular heart disease involving moderate�severe MR
#Recurrent DVT on Eliquis
#History of sleep apnea on CPAP
#History of RA on etanercept
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
Plan
Patient doing well, currently on room air, denies SOB, and saturating well >93% and is HDN stable
Having trouble with mucus clearance, will add IS/acapella
Continue CPAP with sleep, and ok for us to use patient's machine (he has it with him)
Continue broad-spectrum antibiotics with Zosyn -->IV vanco DC'd due to negative MRSA swab; ok to narrow ABx to cefepime - would complete 7-10 day course
Follow up infectious workup including blood, sputum culture; negative legionella/strep pneumo urine antigens; trend procal to assure we have source control
Considering we are treating patient for pneumonia with suspected sepsis,
Maintain net neutral volume status
Diurese as needed
Cardiology consulted with recs appreciated
Maintain MAP >65
Replete K >4, Mg >2; PO4>3
Hold Enbrel given his acute infection
Repeat CXR in AM
Ultimately he will need repeat CXR in 4-6 weeks to follow pneumonia to resolution
Deconditioned, PT/OT eval
DVT ppx
Patient has seen us in the office on 07/20/2023, and he should see us again following discharge.
Outpatient pulmonary FU recommended
Diagnostic Data:
CXR 08-04-2023:
Increased reticulonodular opacity throughout both lungs with indistinctness of the central pulmonary vasculature, with suggestion of Francisco B lines. Slightly greater confluence in the lung bases. Findings are felt to be most suggestive of pulmonary
edema pattern, possibly on the basis of congestive heart failure. Main differential consideration of bilateral pneumonia.
TTE 08-04-2023:
�1.� Mildly dilated left ventricle with global hypokinesis, EF 35%�quantitatively but 25% by visual estimate
�2.� Moderate to severe mitral regurgitation with left atrial dilatation
�3.� Trace aortic regurgitation
�4.� Normal right heart, pulmonary artery systolic pressure 31 mmHg
Left and right heart catheterization - 06-19-2023:
1.� Moderately elevated left ventricular filling pressures (LVEDP 39 mmHg and PCWP: 29 mmHg) and mildly elevated right ventricular filling pressures (RA: 14 mmHg).� Normal SVR and PVR
2.� Normal coronary arteries
3.� Moderate LV dysfunction with 2+ mitral regurgitation
Subjective Data
-
Date of Service:
Date of Service: August 07, 2023
Chief Complaint: Pulmonary Follow Up
Subjective:
transfer from icu, events reviewed
patient seen and examined, no acute events ON
remains on RA
Objective Data
Data Reviewed
Vital Signs / I&O / Oxygen:
Vital Signs
Temp Pulse Resp BP Pulse Ox
97.5 F 101 16 107/73 99
08/07/23 07:05 08/07/23 07:05 08/07/23 07:05 08/07/23 07:05 08/07/23 07:05
Intake and Output
08/06/23 08/07/23 08/08/23
06:59 06:59 06:59
Intake Total 1005 / 1005 1250 / 1250
Output Total 1450 / 1450 1275 / 1275
Balance -445 / -445 -25 / -25
SaO2 99
Nasal Cannula flow liters per 3
minute
Physical Exam
General: Comfortable and Other (appears deconditioned)
HEENT: Normocephalic and Anicteric
Cardiovascular: S1-S2 and Peripheral Edema (negative)
Respiratory: Clear, Wheeze (negative) and Non-Labored Respirations
GI: Soft, Non Distended, Non Tender and Normal Bowel Sounds
Neurology: Awake, Alert, Oriented and AO x 3
Skin: Warm and Dry
Labs/Micro/Reports
Lab Data
08/07/23 07:14
08/07/23 07:14
Microbiology
08/04/23 11:24 Blood/Venous Blood Culture - Preliminary
No Growth in 72 hours- Final report to follow
08/04/23 11:24 Blood/Venous Blood Culture - Preliminary
No Growth in 72 hours- Final report to follow
08/04/23 22:36 Urine Legionella Urinary Antigen - Final
Negative for Legionella pneumophila Serogroup 1 antigen.
A negative result does not rule out the possiblity of
Legionella infection due to other serogroups or species of
Legionella. Clinical correlation is recommended.
08/04/23 22:36 Urine Streptococcus pneumoniae Antigen (M - Final
Negative for Streptococcus pneumoniae antigen.
A negative result does not exclude infection with
Streptococcus pneumoniae. Clinical correlation is
recommended.
08/04/23 17:24 Nose Nasal Screen MRSA (PCR) - Final
MRSA not detected - performed by PCR methodology.
08/04/23 13:01 Nasal Swab Respiratory Syncytial Virus Culture - Final
Negative for Respiratory Syncytial Virus.
A false negative result may be obtained with a specimen
collected early in the acute phase. If symptoms persist, a
new specimen should be tested.
08/04/23 11:14 Nasal Swab Influenza Types A & B ([facility]) - Final
Negative for Influenza A & B, NAAT
Negative results must be combined with clinical observations
and patient history.
Nucleic Acid Amplification test (NAAT)performed on the
[employer] platform.
[2023-08-07] MEDS: MAXIPIME 2000 MG IV ×2 (12:03→19:55)
[2023-08-07] MEDS: STERILE WATER FOR INJECTION 10 ML IV ×2 (12:03→19:55)
[2023-08-07] MEDS: FLUSH (NSS) 2 FLUSH IV (12:03)
--- NOTE | 2023-08-07 15:18 | W.PN.HOSP.TC ---
Addendum entered and electronically signed by Rob Benson MD 08/07/23 17:51:
Can consider switching to Cefdinir 300 mg BID x 7 days soon; discussed with ID. Canceled ID consult.
Addendum entered and electronically signed by Rob Benson MD 08/07/23 17:37:
#Acute hypoxic respiratory failure 2/2 pneumonia, with unspecified organism
#Community-acquired pneumonia (multifocal)
#Septic shock (elevated lactate, dyspnea, hypotension)2/2 above
Now off BiPAP to nasal cannula to ROOM AIR
Titrate supplemental oxygen flow rate to maintain SpO2 >90-94%
Vanco stopped as MRSA negative
Status post Zosyn
Continue Cefepime
legionella and S/Pneumonia Urinary Ag: both negative
Sputum Cx idf possible
Paving Crew Foreman consult recommendations appreciated
BiPAP as needed
Original Note:
Today's Communication/Plan
-
Repeat CXR in the morning
Doing well
See below
Assessment / Plan
Assessment / Plan
Physical Exam
General: Not in acute distress
HEENT: Normocephalic
Respiratory: Clear to Auscultation Bilaterally
Cardiac: S1/S2 and Regular Rhythm
GI: Soft and Non Tender. Positive bowel sounds.
Musculoskeletal: No Cyanosis and No Edema
Skin: Warm
Neuro: Awake, Alert, Oriented and AAO x 3
Psych: Calm

Echocardiogram, as per industrial hygenist's report:
'CONCLUSIONS
1. Mildly dilated left ventricle with global hypokinesis, EF 35%
quantitatively but 25% by visual estimate
2. Moderate to severe mitral regurgitation with left atrial dilatation
3. Trace aortic regurgitation
4. Normal right heart, pulmonary artery systolic pressure 31 mmHg'

Assessment/Plan
#Acute hypoxic respiratory failure 2/2 pneumonia, with unspecified organism
#Community-acquired pneumonia (multifocal)
#Septic shock (elevated lactate, dyspnea, hypotension)2/2 above
Now off BiPAP to nasal cannula to ROOM AIR
Titrate supplemental oxygen flow rate to maintain SpO2 >90-94%
Vanco stopped as MRSA negative
Continue Zosyn
legionella and S/Pneumonia Urinary Ag: both negative
Sputum Cx idf possible
Paving Crew Foreman consult recommendations appreciated
BiPAP as needed
#Lactic acidosis - likely due to sepsis without shock - lactate level now normalized
#Elevated troponin -likely due to type II [place] in the setting of pneumonia - cTnI peaked at 0.085
#Acute on chronic HFrEF exacerbation with noniscemic CM (cath in May 2023)
#History of nonischemic cardiomyopathy ejection fraction of 30 to 35%
#Pulmonary HTN
#Mitral regurgitation
EF 30% 1 year ago -- echocardiogram is unchanged
ProBNP elevated when compated to one done 1 week ago
Lasix as tolerated
Status IV Lasix, being switched to PO Lasix at 20 mg daily: continue Lasix 20 mg PO daily
Follow electrolytes, daily weight and strict I&O
Low sodium diet wean off BiPAP
Cardiology consulted, recommendations appreciated
Will need to consider adding Aldactone, Farxiga and Jardiance but only as tolerated
Continue Coreg 3.125 mg BID
Resume lisinopril 2.5 mg daily when able to as an outpatient
Follow-up TSH
Replace electrolytes to maintain K >4, Mg >2; PO4>3
Patient will need repeat CXR in 4-6 weeks to follow pneumonia to resolution
Per Cardiology:
'-At the 3-month cheyanne (after September 10) if ejection fraction has not improved given risk of sudden cardiac would proceed with consideration for dual-chamber ICD, will be discussed in the office at next visit.
-Consider outpatient cardiac MRI prior to device implant given unknown etiology of cardiomyopathy'
#Hypotension - Symptomatic
-Check TSH and Cortisol
-Goal-directed medical therapy for heart failure is difficult to implement
#Dizziness
Suspected is related to hypotension
#Recurrent DVT on chronic Eliquis
#Essential Hypertension
cont Eliquis
Low suspiscion for VTE since patient was compliant with medications at home
#Rheumatoid Arthritis
-On Etanercept outpatient --> hold this medication due to infection
#Sleep Apnea
-On CPAP at home
Full code
DVT ppx - Eliquis
PPI for PPX
Patient will need a work note when he is discharged.
Anticipated Discharge: 24 - 48 hours
Subjective/Interval History
-
Date of Service: August 07, 2023
Patient was seen and examined. He reported feeling even better today, denied any new symptoms or any other new, significant complaints.
Objective Data
-
Labs:
Laboratory Results
08/07/23
07:14
WBC 6.2
Hgb 13.8
Hct 38.7 L
Plt Count 212 D
Sodium 137
Potassium 4.1
Chloride 103
Carbon Dioxide 26
BUN 16
Creatinine 1.0
Glucose 98
Calcium 9.4
Total Bilirubin 1.1
AST 35
ALT 38
Alkaline Phosphatase 56
Vital Signs:
Vital Signs
Temp Pulse Resp BP Pulse Ox
97.8 F 90 16 105/70 99
08/07/23 11:20 08/07/23 11:20 08/07/23 11:20 08/07/23 11:20 08/07/23 11:20
I&O
08/06/23 08/07/23 08/08/23
06:59 06:59 06:59
Intake Total 1005 / 1005 1250 / 1250
Output Total 1450 / 1450 1275 / 1275
Balance -445 / -445 - /
[2023-08-07 15:25] VITALS: BP 106/77
[2023-08-07 19:02] VITALS: BP 99/67
[2023-08-07] MEDS: COREG PO (19:54)
[2023-08-07 23:20] VITALS: BP 98/63
[2023-08-08 03:16] VITALS: BP 93/62
[2023-08-08] MEDS: STERILE WATER FOR INJECTION 10 ML IV ×2 (03:56→12:02)
[2023-08-08] MEDS: MAXIPIME 2000 MG IV ×2 (03:56→12:02)
[2023-08-08 06:00] VITALS: BMI 21.0
[2023-08-08 07:00] VITALS: BP 104/67
--- NOTE | 2023-08-08 07:07 | W.PN.HOSP.TC ---
Today's Communication/Plan
-
IV abx converted to Oral cefdinir
cont lasix diuresis
discharge planning home tomorrow if remains stable/continues to improve
Assessment / Plan
Assessment / Plan
Physical Exam
General: Not in acute distress
HEENT: Normocephalic
Respiratory: Clear to Auscultation Bilaterally
Cardiac: S1/S2 and Regular Rhythm
GI: Soft and Non Tender. Positive bowel sounds.
Musculoskeletal: No Cyanosis and No Edema
Skin: Warm
Neuro: Awake, Alert, Oriented and AAO x 3
Psych: Calm

Echocardiogram, as per enrollment nurse's report:
'CONCLUSIONS
1. Mildly dilated left ventricle with global hypokinesis, EF 35%
quantitatively but 25% by visual estimate
2. Moderate to severe mitral regurgitation with left atrial dilatation
3. Trace aortic regurgitation
4. Normal right heart, pulmonary artery systolic pressure 31 mmHg'

Assessment/Plan
#Acute hypoxic respiratory failure 2/2 pneumonia, with unspecified organism
#Community-acquired pneumonia (multifocal)
#Septic shock (elevated lactate, dyspnea, hypotension)2/2 above
Now off BiPAP to nasal cannula to ROOM AIR
Titrate supplemental oxygen flow rate to maintain SpO2 >90-94%
Vanco stopped as MRSA negative
Zosyn converted to Cefipime later converted to oral cefdinir planned 7 days treatment
legionella and S/Pneumonia Urinary Ag: both negative
Sputum Cx idf possible
Enterprise Application Developer consult recommendations appreciated
BiPAP as needed
#Lactic acidosis - likely due to sepsis without shock - lactate level now normalized
#Elevated troponin -likely due to type II [place] in the setting of pneumonia - cTnI peaked at 0.085
#Acute on chronic HFrEF exacerbation with noniscemic CM (cath in May 2023)
#History of nonischemic cardiomyopathy ejection fraction of 30 to 35%
#Pulmonary HTN
#Mitral regurgitation
EF 30% 1 year ago -- echocardiogram is unchanged
ProBNP elevated when compated to one done 1 week ago
Lasix as tolerated
Status IV Lasix, being switched to PO Lasix at 20 mg daily: continue Lasix 20 mg PO daily
Follow electrolytes, daily weight and strict I&O
Low sodium diet wean off BiPAP
Cardiology consulted, recommendations appreciated
Will need to consider adding Aldactone, Farxiga and Jardiance but only as tolerated
Continue Coreg 3.125 mg BID
cont hold lisinopril 2.5 mg daily d/t soft pressures
TSH wnl
monitor and replete electrolytes as necessary
Patient will need repeat CXR in 4-6 weeks to follow pneumonia to resolution
Per Cardiology:
At the 3-month [place]yanne (after September 10) if ejection fraction has not improved given risk of sudden cardiac would proceed with consideration for dual-chamber ICD, will be discussed in the office at next visit
#Hypotension - Symptomatic
-TSH and Cortisol wnl
-Goal-directed medical therapy for heart failure is difficult to implement
#Dizziness resolved
#Recurrent DVT on chronic Eliquis
#Essential Hypertension
cont Eliquis
#Rheumatoid Arthritis
-On Etanercept outpatient --> hold this medication due to infection
#Sleep Apnea
-On CPAP at home
Full code
DVT ppx - Eliquis
PPI for PPX
Patient requesting work note on discharge
I spent a total of 55 minutes with the patient or on the floor. More than 50% of this time involved counseling and coordination of care.
Anticipated Discharge: Within 24 hours
Subjective/Interval History
-
Date of Service: August 08, 2023
No acute distress sitting up comfortably in bed. Reports overall feeling well. Denies any new acute issues at this time
Objective Data
-
Labs:
Laboratory Results
08/08/23
06:00
WBC Pending
Hgb Pending
Hct Pending
Plt Count Pending
Sodium Pending
Potassium Pending
Chloride Pending
Carbon Dioxide Pending
BUN Pending
Creatinine Pending
Glucose Pending
Calcium Pending
Total Bilirubin Pending
AST Pending
ALT Pending
Alkaline Phosphatase Pending
Vital Signs:
Vital Signs
Temp Pulse Resp BP Pulse Ox
98 F 87 20 93/62 99
08/08/23 03:16 08/08/23 03:16 08/08/23 03:16 08/08/23 03:16 08/08/23 03:16
I&O
08/07/23 08/08/23 08/09/23
06:59 06:59 06:59
Intake Total 1250 / 1250 1500 / 1500
Output Total 1275 / 1275 2525 / 2525
Balance -25 / -25 -1025 / -1025
[2023-08-08 08:33] LABS: % Eosinophils 5.7 % (0-6); % Immature Granulocytes 0.2 % (0-0.5); % Lymphocytes 37.8 % (20.5-51.1); % Monocytes 14.8 % (1.7-9.3); % Neutrophils 40.5 % (42.2-75.2); Absolute Basophils 0.1 10^3/uL (0-0.2); Absolute Eosinophils 0.3 10^3/uL (0-0.7); Absolute Lymphocytes 2.3 10^3/uL (1.2-3.4); Absolute Monocytes 0.9 10^3/uL (0.1-0.6); Absolute Neutrophils 2.4 10^3/uL (1.4-6.5); Hematocrit 40.9 % (39.0-52.0); Hemoglobin 14.1 g/dL (13.0-18.0); Mean Corp Hgb Conc. 34.5 g/dL (33.0-37.0); Mean Corpuscular Hgb 31.2 pg (27.0-31.0); Mean Corpuscular Volume 90.5 fL (80.0-94.0); Mean Platelet Volume 10.9 fL (7.4-10.4); Nucleated Red Blood Cells % 0 % (-); Platelet Count 212 10^3/uL (130-400); Red Blood Cell Count 4.52 10^6/uL (4.70-6.10); Red Cell Dist. Width 12.6 % (11.5-14.5)
[2023-08-08] MEDS: COREG PO ×2 (08:35→20:35)
[2023-08-08] MEDS: LASIX 20 MG PO (08:36)
[2023-08-08] MEDS: ELIQUIS 5 MG PO ×2 (08:36→20:34)
[2023-08-08 08:47] LABS: ALT (SGPT) 65 U/L (0-50); AST (SGOT) 47 U/L (17-59); Albumin 4.4 g/dl (3.5-5.0); Alkaline Phosphatase 64 U/L (38-126); Blood Urea Nitrogen 15 mg/dl (9-20); Calcium 9.4 mg/dl (8.4-10.2); Carbon Dioxide 27 mmol/L (22-30); Chloride 104 mmol/L (98-107); Estimated Creatinine Clearance 91 ml/min; Glucose 102 mg/dl (70-99); Potassium 4.3 mmol/L (3.5-5.1); Sodium 138 mmol/L (135-145); Total Bilirubin 0.9 mg/dl (0.2-1.3); Total Protein 7.6 g/dl (6.3-8.2); eGFR > 60.00
[2023-08-08 11:00] VITALS: BP 108/70
[2023-08-08] MEDS: FLUSH (NSS) 2 FLUSH IV (12:03)
[2023-08-08 15:15] VITALS: BP 93/63
--- NOTE | 2023-08-08 16:30 | W.PN.PUL3 ---
Today's Communication / Plan
-
Maintain SpO2 >90-94%
IS/acapella
Encouraged PT/OT, OOB
ABx to complete 7-10 day course
Assessment
-
63-year-old male never smoker with a PMHx of HFrEF, recurrent DVT on Eliquis and rheumatoid arthritis on Enbrel who presented with malaise, generalized weakness and shortness of breath.� Of note patient was recently diagnosed with right lower lobe
pneumonia after coming here to the ER on 07/28/2023 and discharged home with Augmentin. CT chest from 07/31/2023 showed multifocal pneumonia. In the ER, he was placed onto BiPAP and there was concern for heart failure and he was initially diuresed and
started on nitroglycerin drip and BIPAP. Due to his severe respiratory distress and hemodynamic instability, he was transferred to the ICU for further care and critical care services consulted for additional management/recommendations.
Impression:
#Acute respiratory failure with hypoxemia
#Community-acquired pneumonia (multifocal)
#Lactic acidosis - likely due to sepsis without shock - lactate level now normalized
#Elevated troponin -likely due to type II [place] in the setting of pneumonia - cTnI peaked at 0.085
#Acute HFrEF exacerbation with valvular heart disease involving moderate�severe MR
#Recurrent DVT on Eliquis
#History of sleep apnea on CPAP
#History of RA on etanercept
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
Plan
Patient doing well, currently on room air, denies SOB, and saturating well >93% and is HDN stable
Having trouble with mucus clearance, continue IS/acapella
Continue CPAP with sleep, and ok for us to use patient's machine (he has it with him)
Continue broad-spectrum antibiotics with Zosyn -->IV vanco DC'd due to negative MRSA swab; narrowed ABx to cefepime --> transitioned to cefdnir tonight- would complete 7-10 day course
Follow up infectious workup including blood, sputum culture; negative legionella/strep pneumo urine antigens; trend procal to assure we have source control
Maintain net neutral volume status
Diurese as needed
Cardiology consulted with recs appreciated
Maintain MAP >65
Replete K >4, Mg >2; PO4>3
Hold Enbrel given his acute infection
He will need repeat CXR in 4-6 weeks to follow pneumonia to resolution
Deconditioned, PT/OT eval
DVT ppx
Patient has seen us in the office on 07/20/2023, and he should see us again following discharge.
Outpatient pulmonary FU recommended
Diagnostic Data:
CXR 08-08-2023: No residual acute cardiopulmonary process. Interval resolution of previously seen pulmonary edema/pneumonia.
CXR 08-04-2023:
Increased reticulonodular opacity throughout both lungs with indistinctness of the central pulmonary vasculature, with suggestion of Francisco B lines. Slightly greater confluence in the lung bases. Findings are felt to be most suggestive of pulmonary
edema pattern, possibly on the basis of congestive heart failure. Main differential consideration of bilateral pneumonia.
TTE 08-04-2023:
�1.� Mildly dilated left ventricle with global hypokinesis, EF 35%�quantitatively but 25% by visual estimate
�2.� Moderate to severe mitral regurgitation with left atrial dilatation
�3.� Trace aortic regurgitation
�4.� Normal right heart, pulmonary artery systolic pressure 31 mmHg
Left and right heart catheterization - 06-19-2023:
1.� Moderately elevated left ventricular filling pressures (LVEDP 39 mmHg and PCWP: 29 mmHg) and mildly elevated right ventricular filling pressures (RA: 14 mmHg).� Normal SVR and PVR
2.� Normal coronary arteries
3.� Moderate LV dysfunction with 2+ mitral regurgitation
Subjective Data
-
Date of Service:
Date of Service: August 08, 2023
Chief Complaint: Pulmonary Follow Up
Subjective:
Seen this afternoon. Resting in bed in NAD. On room air. No acute events reported from overnight.
Review of Systems
General: Other (neg unless mentioned above)
Objective Data
Data Reviewed
Vital Signs / I&O / Oxygen:
Vital Signs
Temp Pulse Resp BP Pulse Ox
98.2 F 102 16 93/63 96
08/08/23 15:15 08/08/23 15:15 08/08/23 15:15 08/08/23 15:15 08/08/23 15:15
Intake and Output
08/07/23 08/08/23 08/09/23
06:59 06:59 06:59
Intake Total 1250 / 1250 1500 / 1500
Output Total 1275 / 1275 2525 / 2525 250 / 250
Balance -25 / -25 -1025 / -1025 -250 / -250
SaO2 96
Nasal Cannula flow liters per 3
minute
Physical Exam
General: Comfortable and Other (appears deconditioned)
HEENT: Normocephalic and Anicteric
Cardiovascular: S1-S2 and Peripheral Edema (negative)
Respiratory: Clear, Wheeze (negative), Crackles (n), Rhonchi (n) and Non-Labored Respirations
GI: Soft, Non Distended, Non Tender and Normal Bowel Sounds
Neurology: AO x 3
Skin: Warm and Dry
Labs/Micro/Reports
Lab Data
08/08/23 07:51
08/08/23 07:51
Microbiology
08/04/23 11:24 Blood/Venous Blood Culture - Preliminary
No Growth in 4 days- Final report to follow
08/04/23 11:24 Blood/Venous Blood Culture - Preliminary
No Growth in 4 days- Final report to follow
[2023-08-08 19:49] VITALS: BP 102/69
[2023-08-08] MEDS: OMNICEF 300 MG PO (20:34)
[2023-08-08 23:12] VITALS: BP 95/70
[2023-08-09 03:45] VITALS: BP 93/63
[2023-08-09 06:00] VITALS: BMI 21.0
[2023-08-09 06:21] LABS: % Eosinophils 7.1 % (0-6); % Immature Granulocytes 0.2 % (0-0.5); % Lymphocytes 37.4 % (20.5-51.1); % Monocytes 14.2 % (1.7-9.3); % Neutrophils 40.1 % (42.2-75.2); Absolute Basophils 0.1 10^3/uL (0-0.2); Absolute Eosinophils 0.4 10^3/uL (0-0.7); Absolute Monocytes 0.7 10^3/uL (0.1-0.6); Absolute Neutrophils 2.1 10^3/uL (1.4-6.5); Hematocrit 36.1 % (39.0-52.0); Hemoglobin 12.8 g/dL (13.0-18.0); Mean Corp Hgb Conc. 35.5 g/dL (33.0-37.0); Mean Corpuscular Hgb 30.9 pg (27.0-31.0); Mean Corpuscular Volume 87.2 fL (80.0-94.0); Mean Platelet Volume 10.6 fL (7.4-10.4); Nucleated Red Blood Cells % 0 % (-); Platelet Count 194 10^3/uL (130-400); Red Blood Cell Count 4.14 10^6/uL (4.70-6.10); Red Cell Dist. Width 12.4 % (11.5-14.5); White Blood Cell Count 5.2 10^3/uL (4.8-10.8)
[2023-08-09 06:38] LABS: ALT (SGPT) 53 U/L (0-50); AST (SGOT) 35 U/L (17-59); Albumin 3.8 g/dl (3.5-5.0); Alkaline Phosphatase 54 U/L (38-126); Blood Urea Nitrogen 18 mg/dl (9-20); Calcium 9.5 mg/dl (8.4-10.2); Carbon Dioxide 23 mmol/L (22-30); Chloride 103 mmol/L (98-107); Estimated Creatinine Clearance 91 ml/min; Glucose 102 mg/dl (70-99); Potassium 4.2 mmol/L (3.5-5.1); Sodium 136 mmol/L (135-145); Total Bilirubin 0.8 mg/dl (0.2-1.3); Total Protein 6.6 g/dl (6.3-8.2); eGFR > 60.00
[2023-08-09 07:25] VITALS: BP 103/69
--- NOTE | 2023-08-09 07:25 | W.PN.HOSP.TC ---
Today's Communication/Plan
-
discharge
Assessment / Plan
Assessment / Plan
Physical Exam
General: Not in acute distress
HEENT: Normocephalic
Respiratory: Clear to Auscultation Bilaterally
Cardiac: S1/S2 and Regular Rhythm
GI: Soft and Non Tender. Positive bowel sounds.
Musculoskeletal: No Cyanosis and No Edema
Skin: Warm
Neuro: Awake, Alert, Oriented and AAO x 3
Psych: Calm

Echocardiogram, as per mfts's report:
'CONCLUSIONS
1. Mildly dilated left ventricle with global hypokinesis, EF 35%
quantitatively but 25% by visual estimate
2. Moderate to severe mitral regurgitation with left atrial dilatation
3. Trace aortic regurgitation
4. Normal right heart, pulmonary artery systolic pressure 31 mmHg'

Assessment/Plan
#Acute hypoxic respiratory failure 2/2 pneumonia, with unspecified organism
#Community-acquired pneumonia (multifocal)
#Septic shock (elevated lactate, dyspnea, hypotension)2/2 above
Now off BiPAP to nasal cannula to ROOM AIR
Titrate supplemental oxygen flow rate to maintain SpO2 >90-94%
Vanco stopped as MRSA negative
Zosyn converted to Cefipime later converted to oral cefdinir planned 7 days treatment
legionella and S/Pneumonia Urinary Ag: both negative
Sputum Cx idf possible
Micrographics Services Supervisor consult recommendations appreciated
BiPAP as needed
#Lactic acidosis - likely due to sepsis without shock - lactate level now normalized
#Elevated troponin -likely due to type II [place] in the setting of pneumonia - cTnI peaked at 0.085
#Acute on chronic HFrEF exacerbation with noniscemic CM (cath in May 2023)
#History of nonischemic cardiomyopathy ejection fraction of 30 to 35%
#Pulmonary HTN
#Mitral regurgitation
EF 30% 1 year ago -- echocardiogram is unchanged
ProBNP elevated when compated to one done 1 week ago
Lasix as tolerated
Status IV Lasix, being switched to PO Lasix at 20 mg daily: continue Lasix 20 mg PO daily
Follow electrolytes, daily weight and strict I&O
Low sodium diet wean off BiPAP
Cardiology consulted, recommendations appreciated
Will need to consider adding Aldactone, Farxiga and Jardiance but only as tolerated
Continue Coreg 3.125 mg BID
cont hold lisinopril 2.5 mg daily d/t soft pressures
TSH wnl
monitor and replete electrolytes as necessary
Patient will need repeat CXR in 4-6 weeks to follow pneumonia to resolution
Per Cardiology:
At the 3-month [place]yanne (after September 10) if ejection fraction has not improved given risk of sudden cardiac would proceed with consideration for dual-chamber ICD, will be discussed in the office at next visit
#Hypotension - Symptomatic resolved
-TSH and Cortisol wnl
-Goal-directed medical therapy for heart failure is difficult to implement
#Dizziness resolved
#Recurrent DVT on chronic Eliquis
#Essential Hypertension
cont Eliquis
#Rheumatoid Arthritis
-On Etanercept outpatient --> hold this medication due to infection
#Sleep Apnea
-On CPAP at home
Full code
DVT ppx - Eliquis
PPI for PPX
Work note provided
Medically stable for discharge home with outpatient follow up recommendations.
Total Time Preparing Discharge __50 minutes including examination of the patient, summary of the hospital stay, instructions for continuing care to all relevant caregivers; and preparation of discharge records, prescriptions, and referral
forms if necessary.
Anticipated Discharge: Today
Subjective/Interval History
-
Date of Service: August 09, 2023
denies any new acute issues at this time. Reports feeling well. Eager to go home.
Objective Data
-
Labs:
Laboratory Results
08/09/23
06:03
WBC 5.2
Hgb 12.8 L
Hct 36.1 L
Plt Count 194
Sodium 136
Potassium 4.2
Chloride 103
Carbon Dioxide 23
BUN 18
Creatinine 0.9
Glucose 102 H
Calcium 9.5
Total Bilirubin 0.8
AST 35
ALT 53 H
Alkaline Phosphatase 54
Vital Signs:
Vital Signs
Temp Pulse Resp BP Pulse Ox
97.7 F 83 22 93/63 98
08/09/23 03:45 08/09/23 03:45 08/09/23 03:45 08/09/23 03:45 08/09/23 03:45
I&O
08/08/23 08/09/23 08/10/23
06:59 06:59 06:59
Intake Total 1500 / 1500 1200 / 1200
Output Total 2525 / 2525 1300 / 1300
Balance -1025 / -1025 -100 / -100
[2023-08-09] MEDS: ELIQUIS 5 MG PO (08:34)
[2023-08-09] MEDS: OMNICEF 300 MG PO (08:34)
[2023-08-09] MEDS: LASIX 20 MG PO (08:35)
[2023-08-09] MEDS: COREG PO (08:36)
[2023-08-09 11:09] VITALS: BP 98/70
--- NOTE | 2023-08-09 12:56 | W.PN.PUL3 ---
Today's Communication / Plan
-
Maintain SpO2 >90-94%
IS/acapella
OOB --> he is walking around the unit frequently without respiratory symptoms
Complete 7-10 day Abx course
Patient appropriate for discharge home. Pulmonary service will now sign off. Outpatient appointment will be arranged. Please reconsult us if there are any additional questions/concerns, or if there is any deterioration in respiratory status.
Assessment
-
63-year-old male never smoker with a PMHx of HFrEF, recurrent DVT on Eliquis and rheumatoid arthritis on Enbrel who presented with malaise, generalized weakness and shortness of breath.� Of note patient was recently diagnosed with right lower lobe
pneumonia after coming here to the ER on 07/28/2023 and discharged home with Augmentin. CT chest from 07/31/2023 showed multifocal pneumonia. In the ER, he was placed onto BiPAP and there was concern for heart failure and he was initially diuresed and
started on nitroglycerin drip and BIPAP. Due to his severe respiratory distress and hemodynamic instability, he was transferred to the ICU for further care and critical care services consulted for additional management/recommendations.
Impression:
#Acute respiratory failure with hypoxemia
#Community-acquired pneumonia (multifocal)
#Lactic acidosis - likely due to sepsis without shock - lactate level now normalized
#Elevated troponin -likely due to type II CO in the setting of pneumonia - cTnI peaked at 0.085
#Acute HFrEF exacerbation with valvular heart disease involving moderate�severe MR
#Recurrent DVT on Eliquis
#History of sleep apnea on CPAP
#History of RA on etanercept
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
Plan
Patient doing well, currently on room air, denies SOB, and saturating well >93% and is HDN stable
Cleared to go home as per PT
Having trouble with mucus clearance, continue IS/acapella
Continue CPAP with sleep, and ok for us to use patient's machine (he has it with him)
Continue broad-spectrum antibiotics with Zosyn -->IV vanco DC'd due to negative MRSA swab; narrowed ABx to cefepime --> transitioned to cefdnir last night- would complete 7-10 day course
Follow up infectious workup including blood, sputum culture; negative legionella/strep pneumo urine antigens; trend procal to assure we have source control
Maintain net neutral volume status
Diurese as needed --> on PO Lasix 20 mg daily
Cardiology consulted with recs appreciated
Maintain MAP >65
Replete K >4, Mg >2; PO4>3
Hold Enbrel given his acute infection
He will need repeat CXR in 4-6 weeks to follow pneumonia to resolution
Deconditioned, PT/OT eval
DVT ppx
Patient has seen us in the office on 07/20/2023, and he should see us again following discharge.
Outpatient pulmonary FU recommended
Patient appropriate for discharge home. Pulmonary service will now sign off. Outpatient appointment will be arranged. Thank you for allowing us to be involved in the care of this patient. Please reconsult us if there are any additional
questions/concerns, or if there is any deterioration in respiratory status.
Diagnostic Data:
CXR 08-08-2023: No residual acute cardiopulmonary process. Interval resolution of previously seen pulmonary edema/pneumonia.
CXR 08-04-2023:
Increased reticulonodular opacity throughout both lungs with indistinctness of the central pulmonary vasculature, with suggestion of Francisco B lines. Slightly greater confluence in the lung bases. Findings are felt to be most suggestive of pulmonary
edema pattern, possibly on the basis of congestive heart failure. Main differential consideration of bilateral pneumonia.
TTE 08-04-2023:
�1.� Mildly dilated left ventricle with global hypokinesis, EF 35%�quantitatively but 25% by visual estimate
�2.� Moderate to severe mitral regurgitation with left atrial dilatation
�3.� Trace aortic regurgitation
�4.� Normal right heart, pulmonary artery systolic pressure 31 mmHg
Left and right heart catheterization - 06-19-2023:
1.� Moderately elevated left ventricular filling pressures (LVEDP 39 mmHg and PCWP: 29 mmHg) and mildly elevated right ventricular filling pressures (RA: 14 mmHg).� Normal SVR and PVR
2.� Normal coronary arteries
3.� Moderate LV dysfunction with 2+ mitral regurgitation
Subjective Data
-
Date of Service:
Date of Service: August 09, 2023
Chief Complaint: Pulmonary Follow Up
Subjective:
Patient seen today. He feels well. Eager to go home. He is on room air. Able to pull about 3 L from incentive spirometer. No acute events reported overnight. Patient cleared to go home as per PT evaluation from 08/06/2023. He denies any chest
pain, headache, fevers or chills. Still gets mildly short of breath when he speaks a lot or overexerts himself, but it is markedly improved compared to admission.
Review of Systems
General: Other (Negative unless mentioned above.)
Objective Data
Data Reviewed
Vital Signs / I&O / Oxygen:
Vital Signs
Temp Pulse Resp BP Pulse Ox
97.4 F 95 18 98/70 94
08/09/23 11:09 08/09/23 11:09 08/09/23 11:09 08/09/23 11:09 08/09/23 11:09
Intake and Output
08/08/23 08/09/23 08/10/23
06:59 06:59 06:59
Intake Total 1500 / 1500 1200 / 1200
Output Total 2525 / 2525 1300 / 1300
Balance -1025 / -1025 -100 / -100
SaO2 94
Nasal Cannula flow liters per 3
minute
Physical Exam
General: Comfortable and Other (appears deconditioned)
HEENT: Normocephalic and Anicteric
Cardiovascular: S1-S2 and Peripheral Edema (negative)
Respiratory: Clear, Wheeze (negative), Crackles (n), Rhonchi (n) and Non-Labored Respirations
GI: Soft, Non Distended, Non Tender and Normal Bowel Sounds
Neurology: AO x 3
Skin: Warm and Dry
Labs/Micro/Reports
Lab Data
08/09/23 06:03
08/09/23 06:03
Microbiology
08/04/23 11:24 Blood/Venous Blood Culture - Final
No Growth - Final Report
08/04/23 11:24 Blood/Venous Blood Culture - Final
No Growth - Final Report
[2023-08-09 15:05] VITALS: BP 112/76
--- NOTE | 2023-08-09 16:40 | W.DCSUMMARY ---
Discharge Summary
Discharge Data
Date of Admission: 08/04/23
Date of Discharge: 08/09/23
-
Pending Results: No
Hospital Course
63M DVT on Eliquis, autoimmune disease, HTN, HFrEF p/w gradual worsening of dyspnea started weeks ago. Developing RLL pneumonia, patient was hypoxic with signs of CHF exacerbation on XR, given Lasix 60mg IV but then developed symptomatic hypotension
with lightheadedness, not responsive to IVF, so Levophed was started. On Exam patient however had no LE swelling and did not report any weight gain. Admitted with septic shock 2/2 pneumonia to ICU. ECHO appreciated mildly dilated left
ventricle�with global hypokinesis, EF 35% quantitatively but 25% by visual estimate, moderate to severe mitral regurgitation with left atrial dilatation, Trace aortic regurgitation, and Normal right heart, pulmonary artery systolic pressure 31 mmHg.
Acute hypoxic respiratory failure 2/2 pneumonia, with unspecified organism, Community-acquired pneumonia (multifocal), septic shock. Weaned off pressors, Pt was eventually weaned off BiPAP to nasal cannula to room air. Empiric Vanco was stopped w
MRSA screen negative. Zosyn converted to Cefipime later converted to oral cefdinir planned 7 days treatment. Legionella and S/Pneumonia Urinary Ag: both negative. Lactic acidosis resolved. Elevated troponin -likely due to type II OH in the
setting of pneumonia. Troponin peaked at 0.085. Acute on chronic HFrEF exacerbation with nonischemic CM (cath in May 2023) echocardiogram was unchanged from ECHO completed 1 year ago. IV Lasix was tapered to PO Lasix 20 mg daily. 3 mo follow up
ECHO was recommended with consideration for ICD placement if EF had not improved at that time. Medically stable, patient was discharged home with outpatient follow up recommendations.
Discharge Plan
-
Patient Disposition: Home (Routine Discharge)
Discharge Diagnosis/Procedures: Acute respiratory failure with hypoxemia
Community-acquired pneumonia (multifocal)
Lactic acidosis - likely due to sepsis without shock - lactate level now normalized
Elevated troponin -likely due to type II OH in the setting of pneumonia
Acute Heart Failure with reduced Ejection Fraction exacerbation with valvular heart disease involving moderate�severe Mitral Regurgitation
Recurrent Deep Venous Thrombosis on Eliquis
History of sleep apnea on CPAP
History of Rheumatoid Arthritis on etanercept
Condition: Good
Diet: 2 Gram Sodium and Restrict fluids to 64 oz
Activity: As tolerated
Driving Restrictions: As prior to admission
Blood Work: Please repeat CBC and BMP with primary care provider in 1 week of discharge
Others Tests: Repeat CXR with primary care provider in 4-6 weeks of discharge to insure resolution of pneumonia
ECHO in 3 months of discharge with Cardiology to continue follow up of reduced ejection fraction.
Specialty Instructions: Weigh Daily- Call MD for wt gain/loss 3 lbs overnight/5 lbs in 1 week
Stop these medications:: Lisinopril has been stopped due to relatively low blood pressure. Please follow up with primary care provider or cardiology to determine when safe to resume.
Activity Restrictions/Additional Instructions:
Please follow up with your primary care provider in 1 week of discharge, keep your appointment with Cardiology, and follow up with pulmonology in 4-6 weeks of discharge.
apixaban 5 mg tablet (Eliquis) 5 mg PO BID Blood Clot Prevention/Tx
carvedilol 3.125 mg tablet 3.125 mg PO BID Blood Pressure Heart Failure
etanercept 50 mg/mL (1 mL) subcutaneous syringe (Enbrel) 50 mg SC SAAB Autoimmune Disorder Hold at this time while on antibiotics, resume when antibiotics completed
multivitamin 1 tab PO DAILY Supplement
acetaminophen 325 mg tablet (Tylenol) 650 mg PO Q4HPRN PRN mild pain
furosemide 20 mg tablet (Lasix) 20 mg PO DAILY Fluid Retention/Swelling Heart Failure
cefdinir 300 mg capsule 300 mg PO Q12 6 days #12 caps for Pneumonia
Please take medications as prescribed/recommended and follow up with primary care provider and/or other healthcare provider involved in your care for refills and/or further adjustments to your medication regimen as necessary.
Instructions: *DCA Heart Failure Instructions
Referrals:
Heriberto Feliciano MD [Active] - in four to six weeks (Repeat CXR in 4-6 weeks prior to upcoming appt.)
Finn Ramsey DO [Active] - 08/10/23 9:40 am (You have a follow up visit with Dr. Ramsey at the [facility] in [place]. Please call with questions. )
UNKNOWN,NO INTERVIEW [Family Provider] -
Prescriptions:
New
cefdinir 300 mg Capsule
300 mg PO Q12 6 Days Qty: 12 0RF
Continued
multivitamin Tablet
1 tab PO DAILY
carvedilol 3.125 mg Tablet
3.125 mg PO BID
Eliquis 5 mg Tablet
5 mg PO BID
acetaminophen [Tylenol] 325 mg Tablet
650 mg PO Q4HPRN PRN (Reason: mild pain)
furosemide [Lasix] 20 mg tablet
20 mg PO DAILY
Held
Enbrel 50 mg/mL (1 mL) Syringe
50 mg SC SAAB
Hold Instructions: Continue hold Enbrel while on antibiotics for pneumonia. Ok to resume when antibiotic completes
Discontinued
lisinopril 2.5 mg tablet
2.5 mg PO DAILY
amoxicillin-pot clavulanate 875-125 mg tablet
1 tab PO BID
Patient Comments:
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
No Action
albuterol sulfate [ProAir HFA] 90 mcg/actuation HFA aerosol inhaler
1 puff inhalation Q4HPRN PRN (Reason: shortness of breath) Qty: 8.5 0RF
Discharge Orders:
Discharge Patient (As Directed); Ordered 08/09/23
Ordered By: Harvey Ann
Discharge Date and Time
Discharge Date/Time: 08/09/23 17:46
--- NOTE | 2023-08-09 16:42 | CM ---
CM following re: d/c planning
Chart reviewed
Pt is stable for d/c and has no needs
Pt spouse to transport at time of d/c
Pt insurance does not dictate IMM
PLAN: d/c home no needs
--- NOTE | 2023-08-10 10:02 | W.HF.CON ---
Heart Failure
- LV Function
Left ventricular function study result: LV Ejection fraction </= 35%
Ejection Fraction Percentage: 25-35
- ARNI
Patient already on ARNI: No
Heart Failure ARNI Contraindication: Hypotension
- ACEI/ARB
Patient already on ACEI/ARB: No
Heart Failure ACEI/ARB Contraindication: Hypotension
- Beta Jennifer
Patient already on Evidence Based Beta Jennifer: Yes
- Mineralocorticord Receptor Antagonist
Patient already on MRA: No
Heart Failure MRA Contraindication: Hypotension
- SGLT-2 Inhibitor
Patient already on SGLT-2 Inhibitor: No
Heart Failure SGLT-2 Inhibitor Contraindication: Patient Refusal
- Afib Anticoagulation
Patient already on Anticoagulation for Afib: Yes
- NYHA CHF Classification
NYHA CHF Classification Level: Class III - Symptoms w/ min exertion, interferes w/ nml daily activity (pneumonia)
- ACC/AHA Stage
ACC/AHA Stage: Stage C: Symptomatic Heart Failure
== END 2023-08-09 17:46 | disposition home or self-care (01) | DRG 871 ==
LOC: 4 EAST ACU 12:47
PROVIDERS: Hospitalist; Internal Medicine; ADMITTING PHYSICIAN Internal Medicine; ATTENDING PHYSICIAN Internal Medicine; CONSULT PHYSICIAN Internal Medicine Cardiovascular Disease; CONSULT PHYSICIAN Internal Medicine Critical Care Medicine; EMERGENCY PHYSICIAN Emergency Medicine
PROC: 5A09457 Assistance with Respiratory Ventilation, 24-96 Consecutive Hours, Continuous Positive Airway Pressure (ICD-10-PCS; 2023-08-04)
DX: A41.9 Sepsis, unspecified organism (principal); I50.23 Acute on chronic systolic (congestive) heart failure; R65.21 Severe sepsis with septic shock; J18.9 Pneumonia, unspecified organism; J96.01 Acute respiratory failure with hypoxia; E87.20 Acidosis, unspecified; Z86.718 Personal history of other venous thrombosis and embolism; I11.0 Hypertensive heart disease with heart failure; Z79.01 Long term (current) use of anticoagulants; I27.20 Pulmonary hypertension, unspecified; M06.9 Rheumatoid arthritis, unspecified; Z11.52 Encounter for screening for COVID-19
CPT/HCPCS: 93308; 71045; 71046; 80048; 80053; 80202; 82248; 82533; 82805; 83036; 83605; 83735; 83880; 84100; 84145; 84443; 84484; 85025; 85610; 85730; 86803; 87040; 87449; 87502; 87641; 87807; 87811; 87899; 93005; 93321; 93325; 94640; 94660; 96361; 96365; 96375; 97161; 97166; 99291

== ENCOUNTER 2023-08-15 19:25 | Emergency (ER) | payer OTHER, SELFPAY ==
[2023-08-15 19:29] VITALS: BP 133/85; BMI 23.1
--- NOTE | 2023-08-15 21:56 | ED.GENMED ---
History of Present Illness
General
Chief Complaint: Breathing Problem
Source: patient
Exam Limitations: none
Time Seen by Provider: 08/15/23 21:40
Nursing documentation reviewed up to this point in time: agreed with
Travel History
Have you had any contact with someone who has COVID-19?: No
Do you have any symptoms of coronavirus? Fever > 100 degrees, chills, cough, shortness of breath, sore throat, loss of taste or smell, muscle aches, or headache?: No
History of Present Illness
History of Present Illness:
63-year-old male presents emergency department complaining of shortness of breath. He was recently diagnosed with pneumonia and treated in hospital. He is on cefdinir, states he has 2 days left. He has had waxing and waning of his symptoms since
being discharged. He has a history of CHF, DVT and pneumonia.
Past History
Past History
ED Past Medical History: Other (Cardiomyopathy w EF 25% 05/13/23) and Other (RA)
ED Past Surgical History: Cardiac (cath) and Orthopedic
Social History
Tobacco: Non-smoker
Personal:
Living: with family
Employment: Employed
Review of Systems
Review of Systems
Allergies reviewed?: Yes
Constitutional: Reports no symptoms
EENT: Reports no symptoms
Respiratory: Reports cough and trouble breathing
Cardiac: Reports no symptoms
ABD/GI: Reports no symptoms
: Reports no symptoms
Musculoskeletal: Reports no symptoms
Skin: Reports no symptoms
Neurological: Reports no symptoms
Endocrine: Reports no symptoms
Hematologic/Lymphatic: Reports no symptoms
Psychiatric: Reports no symptoms
Phy Exam
Physical Exam
Physical Exam:
Physical Exam
General: Afebrile
Neck: supple. no meningeal signs. normal posterior pharynx
Heart: s1/s2 tachycardia, no murmur. equal radial
pulses.
HEENT: Pupils equal round reactive to light, EOMI
Lungs: Mild respiratory distress. Right-sided wheezing
Abdomen: normal bowel sounds. not tender. no CVAT
Neuro: alert and oriented. no focal neurological deficits cranial nerves II through XII intact
Skin: no rash
Psychiatric: well kept. interactive and cooperative
Extremities: no edema. no calf tenderness. negative homans. good distal pulses
Scores
Heart Failure Risk
Heart Failure Risk Score: Yes
History of Stroke or TIA: No
History of intubation for respiratory distress: No
Heart rate on ED arrival >/= 110: No
SaO2 <90% on arrival on room air: No
HR >/=110 during 3min walk test (or too ill to perform test): No
ECG has acute ischemic changes: No
Urea >/=12mmol/L (BUN 33.6mg/dL): No
Serum CO2>/=35mmol/L: No
Troponin I or T elevated to GA Level (0.4mg/dL): No
NT-proBNP >/=5,000ng/L (5,000pg/ml): No
HF Risk Score: 0
Admission Status: LOW RISK 2.8% Consider discharge to home with f/u visit to PCP/Gate Watchman
Course
Orders/Labs/Results
Orders:
Orders
08/15/23 19:33
EKG [Electrocardiogram (*1)] Urgent
Reason for Study: Palpitations
EKG- Treatment ONCE
08/15/23 21:55
Electrocardiogram (*1) Stat
Reason for Study: Other
Other Reason for Exam: pneumonia
Cardiac Monitoring- Treatment ONCE
IV Insert/Care/Rem.- Treatment PRN
Ipratropium/Albuterol Sulfate [Duoneb] 3 ml INH R NOW STA
Pulse Ox/cont/shift [RESP] Stat
Quantity: 1
08/15/23 22:28
Complete Blood Count/With Diff Urgent
Comprehensive Metabolic Panel Urgent
Lactic Acid Q4H
Comment: CANCEL 2nd LACTIC ACID IF 1st LACTIC ACID IS LESS THAN 2
NT-proBNP Urgent
Troponin I Urgent
Blood Culture Q30M
TATE Source: Blood/Venous
Specimen Description:
08/15/23 23:07
Blood Culture Q30M
TATE Source: Blood/Venous
Specimen Description:
08/16/23 00:22
CR Chest - 2 Views Urgent
Reason For Exam: shortness of breath
Abnormal Lab Results
08/15/23
22:28
RBC 4.01 L 10^6/uL
(4.70-6.10)
Hgb 12.5 L g/dL
(13.0-18.0)
Hct 34.7 L %
(39.0-52.0)
MCH 31.2 H pg
(27.0-31.0)
Absolute Monos (auto) 0.9 H 10^3/uL
(0.1-0.6)
Monocytes % 13.7 H %
(1.7-9.3)
BUN 26 H mg/dl
(9-20)
08/15/23 22:28
08/15/23 22:28
Vital Signs
Initial and Last Documented VS:
Initial Vital Signs
Temp Pulse Resp BP Pulse Ox
98.4 F 113 20 133/85 97
08/15/23 19:29 08/15/23 19:08/15/23 19:08/15/23 19:08/15/23 19:29
Last Documented Vital Signs
Temp Pulse Resp BP Pulse Ox
98.4 F 81 16 100/80 98
08/15/23 19:08/16/23 01:27 08/16/23 01:27 08/16/23 01:27 08/16/23 01:27
MDM/Problems Addressed
Differential Diagnosis Includes:
Pneumonia, bronchitis, CHF
MDM/Problems Addressed:
63-year-old male with cough, likely bronchospasm. Doubt CHF. Patient oxygenating well, no respiratory distress.
Chronic conditions affecting care: Cardiomyopathy
Acute Exacerbation and/or Progression of Chronic Illness: Cardiomyopathy
*Radiology
Radiology exam reviewed: preliminary read by ED provider (Chest x-ray no acute findings)
*Pulse Oximetry
Patient hypoxic: no
*EKG
Interpreted by ED Provider?: Yes
EKG Intrepretation Date: 08/15/23
EKG Intrepretation Time: 19:41
Interpretation: abnormal
Comparison EKG: changes noted
Heart Rate: 109
Rate: tachycardiac
Rhythm: sinus tachycardia
Jenners: normal axis
Interval: normal interval
QRS Pattern: normal QRS
Ischemia: non-specific ST changes
*[employer] Chair Interpretation
Rate: normal
Interpretation: normal
Heart Rate: 72
Rhythm: sinus
*Critical Care Note
Total Time (30-74mins, 75-104mins- exclusive of procedures): Not Applicable
Data Reviewed
Review of Other/Old Records Reveals: Labs and Radiology Studies (Prior chest x-ray from 08/08/2022 no change significant)
Patient Management
Social determinants of health affecting care: Living situation
Escalation/DeEscalation of care consider admission/obs:
Admit not indicated
ED Attending Note
-
Portions of this chart may have been created with voice recognition software.� Occasional wrong word or��sound alike� substitutions may have occurred due to the inherent limitations of voice recognition software.
Discharge Plan
Departure
Patient Disposition: Home (Routine Discharge)
Date of Disposition: 08/16/23
Time of Disposition: 01:12
Patient with high blood pressure during this ER visit?: No
Condition: Good
Discharge Problem:
Acute bronchospasm
Instructions: Acute Bronchitis, Adult (DC)
Prescriptions:
New
albuterol sulfate [ProAir HFA] 90 mcg/actuation HFA aerosol inhaler
1 puff inhalation Q4HPRN PRN (Reason: shortness of breath) Qty: 8.5 0RF
No Action
multivitamin Tablet
1 tab PO DAILY
carvedilol 3.125 mg Tablet
3.125 mg PO BID
Enbrel 50 mg/mL (1 mL) Syringe
50 mg SC SAAB
Hold Instructions: Continue hold Enbrel while on antibiotics for pneumonia. Ok to resume when antibiotic completes
Eliquis 5 mg Tablet
5 mg PO BID
acetaminophen [Tylenol] 325 mg Tablet
650 mg PO Q4HPRN PRN (Reason: mild pain)
furosemide [Lasix] 20 mg tablet
20 mg PO DAILY
cefdinir 300 mg Capsule
300 mg PO Q12 6 Days Qty: 12 0RF
Referrals:
Vale Myers MD [Family Provider] - Call in 1-3 days for appt
Interventions
Interventions:
*Risk Screen - Suicide Last Done: 08/15/23 19:29
*General Assessment Last Done: 08/15/23 22:38
*Neglect/Abuse Screening Last Done: 08/15/23 19:29
ED- Fall Risk Assessment Last Done: 08/15/23 22:38
*ED COVID-19 Vaccine History Last Done: 08/15/23 19:29
*Nursing Disposition Last Done: 08/16/23 01:28
ED- Cardiac Assessment Last Done: 08/15/23 22:38
ED- Pulmonary Assessment Last Done: 08/15/23 22:38
Discharge Date and Time
Discharge Date/Time: 08/16/23 01:32
[2023-08-15] MEDS: DUONEB 3 ML INH (22:29)
[2023-08-15 22:34] VITALS: BP 102/67
[2023-08-15 22:42] LABS: % Basophils 1.1 % (0-2); % Eosinophils 4.2 % (0-6); % Immature Granulocytes 0.2 % (0-0.5); % Lymphocytes 38.2 % (20.5-51.1); % Monocytes 13.7 % (1.7-9.3); % Neutrophils 42.6 % (42.2-75.2); Absolute Basophils 0.1 10^3/uL (0-0.2); Absolute Eosinophils 0.3 10^3/uL (0-0.7); Absolute Lymphocytes 2.4 10^3/uL (1.2-3.4); Absolute Monocytes 0.9 10^3/uL (0.1-0.6); Absolute Neutrophils 2.7 10^3/uL (1.4-6.5); Hematocrit 34.7 % (39.0-52.0); Hemoglobin 12.5 g/dL (13.0-18.0); Mean Corpuscular Hgb 31.2 pg (27.0-31.0); Mean Corpuscular Volume 86.5 fL (80.0-94.0); Mean Platelet Volume 10.3 fL (7.4-10.4); Nucleated Red Blood Cells % 0 % (-); Platelet Count 200 10^3/uL (130-400); Red Blood Cell Count 4.01 10^6/uL (4.70-6.10); Red Cell Dist. Width 12.4 % (11.5-14.5); White Blood Cell Count 6.2 10^3/uL (4.8-10.8)
[2023-08-15 22:54] LABS: ALT (SGPT) 32 U/L (0-50); AST (SGOT) 27 U/L (17-59); Albumin 4.2 g/dl (3.5-5.0); Alkaline Phosphatase 66 U/L (38-126); Blood Urea Nitrogen 26 mg/dl (9-20); Calcium 9.1 mg/dl (8.4-10.2); Carbon Dioxide 22 mmol/L (22-30); Chloride 106 mmol/L (98-107); Estimated Creatinine Clearance 82 ml/min; Glucose 94 mg/dl (70-99); Potassium 4.3 mmol/L (3.5-5.1); Sodium 136 mmol/L (135-145); Total Bilirubin 0.7 mg/dl (0.2-1.3); Total Protein 7.1 g/dl (6.3-8.2); eGFR > 60.00
[2023-08-15 23:00] VITALS: BP 95/69
[2023-08-15 23:06] LABS: NT-proBNP 2590 pg/ml; Troponin I 0.029 ng/ml
[2023-08-16] VITALS: BP 92/64
[2023-08-16 01:27] VITALS: BP 100/80
== END 2023-08-16 01:32 | disposition home or self-care (01) ==
LOC: EMR 19:25
PROVIDERS: EMERGENCY PHYSICIAN Emergency Medicine; FAMILY PHYSICIAN Family Medicine
DX: J98.01 Acute bronchospasm (principal); R42 Dizziness and giddiness; R00.2 Palpitations; I42.9 Cardiomyopathy, unspecified; M06.9 Rheumatoid arthritis, unspecified; J18.9 Pneumonia, unspecified organism; I11.0 Hypertensive heart disease with heart failure; I50.9 Heart failure, unspecified; G47.30 Sleep apnea, unspecified; F41.9 Anxiety disorder, unspecified; Z86.718 Personal history of other venous thrombosis and embolism; Z88.5 Allergy status to narcotic agent
CPT/HCPCS: 99285; 94640; 94760; 71046; 80053; 83605; 83880; 84484; 85025; 87040; 93005

== ENCOUNTER 2023-08-20 08:37 | Outpatient (RCR) | payer OTHER, SELFPAY ==
[2023-08-17 10:38] LABS: Glucose - Point of Care 100 mg/dl (70-99)
[2023-08-20 06:35] LABS: Glucose - Point of Care 161 mg/dl (70-99)
[2023-08-20 07:33] LABS: Glucose - Point of Care 116 mg/dl (70-99)
== END 2023-08-20 23:59 | disposition home or self-care (01) ==
LOC: CRHB 08:37
PROVIDERS: ATTENDING PHYSICIAN Nuclear Medicine Nuclear Cardiology
DX: I50.22 Chronic systolic (congestive) heart failure (principal); I42.9 Cardiomyopathy, unspecified
CPT/HCPCS: 82962; G0422; G0423

== ENCOUNTER 2023-08-24 06:36 | Outpatient (RCR) | payer OTHER, SELFPAY ==
[2023-08-21 06:35] LABS: Glucose - Point of Care 138 mg/dl (70-99)
[2023-08-21 07:25] LABS: Glucose - Point of Care 105 mg/dl (70-99)
== END 2023-08-24 23:59 | disposition home or self-care (01) ==
LOC: CRHB 06:36
PROVIDERS: ATTENDING PHYSICIAN Nuclear Medicine Nuclear Cardiology
DX: I50.23 Acute on chronic systolic (congestive) heart failure (principal)
CPT/HCPCS: 82962; G0422; G0423

== ENCOUNTER 2023-08-24 14:21 | Inpatient (IN) | payer OTHER, SELFPAY ==
[2023-08-24] VITALS (26 sets, daily range): BP systolic 82–115; BP diastolic 54–93; BMI 21.2
--- NOTE | 2023-08-24 10:18 | ED.GENMED ---
History of Present Illness
General
Chief Complaint: Breathing Problem
Source: patient
Time Seen by Provider: 08/24/23 10:10
Travel History
Have you had any contact with someone who has COVID-19?: No
Do you have any symptoms of coronavirus? Fever > 100 degrees, chills, cough, shortness of breath, sore throat, loss of taste or smell, muscle aches, or headache?: No
History of Present Illness
History of Present Illness:
63-year-old male with past medical history of cardiomyopathy with low ejection fraction (has been going to cardiac rehab for this), hypertension, DVT presenting to the emergency department after he had cardiac rehab this morning and while there felt
little short of breath, at home had varying degrees of continued shortness of breath prompting him to come to the emergency department this morning for further evaluation patient denies any chest pain, lightheadedness/dizziness, nausea, diaphoresis,
abdominal pain or any other symptoms associated. He reports good compliance with all of his medications but does note that some medicines have been changed recently noting he discontinued his Enbrel and was started on a new medication for his RA.
Patient notes that a lot of these cardiac diagnoses are new for him within the last 3-month and had recently had a hospitalization in May for sepsis pneumonia. No other concerns at this time.
Past History
Past History
ED Past Medical History: CHF, HTN, Other (Cardiomyopathy w EF 25% 05/13/23) and Other (RA)
ED Past Surgical History: Cardiac (cath) and Orthopedic
Social History
Tobacco: Non-smoker
Alcohol: None
Drug: None
Personal:
Living: with family
Employment: Employed
Review of Systems
Review of Systems
All Other Systems: ROS reviewed and negative except as documented in HPI and ROS
Phy Exam
Physical Exam
Physical Exam:
GENERAL: Alert , intermittent pursed lip breathing
EYE: Clear conjunctiva
NECK: Supple
ENT: o/p clr, mmm.
CARDIAC: Tachycardic rate and rhythm, seems irregular
LUNGS: Clear breath sounds bilaterally, no acute respiratory distress, no wheezes/rales/rhonchi
ABDOMEN: Soft, without focal tenderness, no r/g, no cvat
NEUROLOGICAL: Alert and oriented
SKIN: Warm and dry, skin intact.
MUSCULOSKELETAL: No edema, slight duskiness to the anterior tibia bilaterally which is chronic per the patient
PSYCH: Normal and appropriate interaction.
Scores
Heart Failure Risk
Heart Failure Risk Score: Yes
History of Stroke or TIA: No
History of intubation for respiratory distress: No
Heart rate on ED arrival >/= 110: Yes
SaO2 <90% on arrival on room air: No
HR >/=110 during 3min walk test (or too ill to perform test): Yes
ECG has acute ischemic changes: No
Urea >/=12mmol/L (BUN 33.6mg/dL): No
Serum CO2>/=35mmol/L: No
Troponin I or T elevated to NE Level (0.4mg/dL): No
NT-proBNP >/=5,000ng/L (5,000pg/ml): Yes
HF Risk Score: 3
Admission Status: HIGH RISK 15.9% Consider SNF treatment or admission to hospital
Heart Score for Chest Pain Patients
STEMI patient?: Not applicable
Withdrawal Assessment of Alcohol
Withdrawal Assessment Completed?: Not applicable
Course
Orders/Labs/Results
Orders:
Orders
08/24/23 09:41
ECG [Electrocardiogram (*1)] Urgent
Reason for Study: Chest Pain
EKG- Treatment ONCE
08/24/23 10:17
Diltiazem HCl [Cardizem] 10 mg IV NOW STA
08/24/23 10:30
Diltiazem 125 mg/125 ml Nss [Cardizem] 125 mg in 125 ml IV PER PROTOCOL
Initial dose in mg/hr, then titrate:: 5
Titrate to keep:: Heart rate 80-100 bpm
Titrate by mg/hr:: 5 mg/hr
Frequency of titrations (minutes):: 15
Maximum dose in mg/hr:: 15
08/24/23 10:43
Complete Blood Count/With Diff Urgent
Comprehensive Metabolic Panel Urgent
Magnesium Urgent
NT-proBNP Urgent
PTT Urgent
Prothrombin Time Urgent
08/24/23 11:28
CR Chest Portable - 1 View Urgent
Comment:
Reason For Exam: aflutter/SOB
Reason Study Needs to be Portable: Patient Unstable
08/24/23 11:44
CARDIOLOGY CONSULT Routine
Consulting Provider: Ten Song
Was physician already notified: Yes
Reason for consult: new onset aflutter shortness of breath HFrEF
Abnormal Lab Results
08/24/23
10:43
RBC 3.84 L 10^6/uL
(4.70-6.10)
Hgb 11.9 L g/dL
(13.0-18.0)
Hct 33.9 L %
(39.0-52.0)
MPV 10.5 H fL
(7.4-10.4)
Absolute Monos (auto) 0.7 H 10^3/uL
(0.1-0.6)
Monocytes % 11.1 H %
(1.7-9.3)
PT 17.0 H Sec
(11.4-14.6)
Chloride 108 H mmol/L
(98-107)
Carbon Dioxide 20 L mmol/L
(22-30)
BUN 25 H mg/dl
(9-20)
08/24/23 10:43
08/24/23 10:43
Vital Signs
Initial and Last Documented VS:
Initial Vital Signs
Temp Pulse BP Pulse Ox
98.1 F 135 115/81 98
08/24/23 09:41 08/24/23 09:41 08/24/23 09:41 08/24/23 09:41
Last Documented Vital Signs
Temp Pulse BP Pulse Ox
98.1 F 135 115/81 98
08/24/23 09:41 08/24/23 09:41 08/24/23 09:41 08/24/23 09:41
MDM/Problems Addressed
Differential Diagnosis Includes:
Cardiac dysrhythmia, valvular dysfunction, electrolyte disturbance, ACS
MDM/Problems Addressed:
63-year-old male present emergency department for evaluation of shortness of breath that started while at cardiac rehab today, persisted upon getting home. On arrival to the emergency department was found to be in a atrial flutter with rapid
ventricular rate around 130 to 140 bpm. Suspect this dysrhythmia to be the cause of patient's symptoms. Denies any history of atrial fibs/atrial flutter. Will check labs. Cardizem bolus and drip ordered. So with cardiology team to help
determine further disposition and treatment plan
*Radiology
Radiology exam reviewed: radiology read reviewed (Possible right lower lobe pneumonia, pleural effusion, cardiomegaly)
*Pulse Oximetry
Patient hypoxic: no
*EKG
Interpreted by ED Provider?: Yes
Comparison EKG: changes noted
Heart Rate: 135
Rate: tachycardiac
Rhythm: atrial flutter and PVC's
*Comp Field Case Manager Interpretation
Rate: tachycardiac
Rhythm: atrial flutter
*Critical Care Note
Total Time (30-74mins, 75-104mins- exclusive of procedures): 30
comment:
Critical care statement: A total of 30 minutes of critical care time was provided for this patient. This includes management of unstable vital signs, evaluation of the patient at bedside, reviewing the patient's pertinent medical records, discussion
with consultants, review of old EKGs and review of pertinent medical records. This time with separate from time utilized to perform the aforementioned documented procedures
Patient Management
Discussion with other providers: Hospitalist
Escalation/DeEscalation of care consider admission/obs:
Patient heart rate improved on Cardizem however will still have runs into the 120s and 130s.
BNP is more than twice patient's previous elevation. Blood pressure is low on Cardizem so we will hold on any further Lasix and will defer this care to hospitalist team as well as cardiology. Chest x-ray findings from radiology noted. Patient
does not have any cough, fevers or any other infectious symptoms that would be consistent with pneumonia so will also hold off on any antibiotics at this time. Patient is in agreement with plan for admission. Hospitalist is aware and accepts for
continued evaluation and treatment.
ED Attending Note
-
Portions of this chart may have been created with voice recognition software.� Occasional wrong word or��sound alike� substitutions may have occurred due to the inherent limitations of voice recognition software.
Discharge Plan
Departure
Patient Disposition: Admit
Date of Disposition: 08/24/23
Time of Disposition: 11:30
Presentation/result/management discussed w/ accepting MD/DO: Hospitalist
Discharge Problem:
Atrial flutter, CHF (congestive heart failure)
Prescriptions:
No Action
multivitamin Tablet
1 tab PO DAILY
carvedilol 3.125 mg Tablet
3.125 mg PO BID
Enbrel 50 mg/mL (1 mL) Syringe
50 mg SC SAAB
Hold Instructions: Continue hold Enbrel while on antibiotics for pneumonia. Ok to resume when antibiotic completes
Eliquis 5 mg Tablet
5 mg PO BID
acetaminophen [Tylenol] 325 mg Tablet
650 mg PO Q4HPRN PRN (Reason: mild pain)
furosemide [Lasix] 20 mg tablet
20 mg PO DAILY
cefdinir 300 mg Capsule
300 mg PO Q12 6 Days Qty: 12 0RF
albuterol sulfate [ProAir HFA] 90 mcg/actuation HFA aerosol inhaler
1 puff inhalation Q4HPRN PRN (Reason: shortness of breath) Qty: 8.5 0RF
Referrals:
Vale Myers MD [Family Provider] -
Interventions
Interventions:
*Risk Screen - Suicide Last Done: 08/24/23 10:30
*General Assessment Last Done: 08/24/23 10:30
*Neglect/Abuse Screening Last Done: 08/24/23 10:30
*ED COVID-19 Vaccine History Last Done: 08/24/23 09:49
ED- Cardiac Assessment Last Done: 08/24/23 10:30
ED- Pulmonary Assessment Last Done: 08/24/23 10:30
[2023-08-24 10:54] LABS: % Basophils 1.1 % (0-2); % Eosinophils 4.2 % (0-6); % Immature Granulocytes 0.3 % (0-0.5); % Lymphocytes 26.8 % (20.5-51.1); % Monocytes 11.1 % (1.7-9.3); % Neutrophils 56.5 % (42.2-75.2); Absolute Basophils 0.1 10^3/uL (0-0.2); Absolute Eosinophils 0.3 10^3/uL (0-0.7); Absolute Lymphocytes 1.7 10^3/uL (1.2-3.4); Absolute Monocytes 0.7 10^3/uL (0.1-0.6); Absolute Neutrophils 3.6 10^3/uL (1.4-6.5); Hematocrit 33.9 % (39.0-52.0); Hemoglobin 11.9 g/dL (13.0-18.0); Mean Corp Hgb Conc. 35.1 g/dL (33.0-37.0); Mean Corpuscular Volume 88.3 fL (80.0-94.0); Mean Platelet Volume 10.5 fL (7.4-10.4); Nucleated Red Blood Cells % 0 % (-); Platelet Count 219 10^3/uL (130-400); Red Blood Cell Count 3.84 10^6/uL (4.70-6.10); Red Cell Dist. Width 12.7 % (11.5-14.5); White Blood Cell Count 6.4 10^3/uL (4.8-10.8)
[2023-08-24] MEDS: CARDIZEM 125 IV (10:55)
[2023-08-24] MEDS: CARDIZEM 10 MG IV (10:55)
[2023-08-24 11:08] LABS: ALT (SGPT) 33 U/L (0-50); AST (SGOT) 35 U/L (17-59); Albumin 4.4 g/dl (3.5-5.0); Alkaline Phosphatase 78 U/L (38-126); Blood Urea Nitrogen 25 mg/dl (9-20); Calcium 9.2 mg/dl (8.4-10.2); Carbon Dioxide 20 mmol/L (22-30); Chloride 108 mmol/L (98-107); Glucose 98 mg/dl (70-99); Magnesium 2.1 mg/dl (1.6-2.3); Potassium 4.1 mmol/L (3.5-5.1); Sodium 137 mmol/L (135-145); Total Bilirubin 0.9 mg/dl (0.2-1.3); Total Protein 7.3 g/dl (6.3-8.2); eGFR > 60.00
[2023-08-24 11:17] LABS: APTT 32.6 Sec (23.4-35.0); NT-proBNP 6070 pg/ml
--- NOTE | 2023-08-24 11:39 | HPS.HSE ---
Addendum entered and electronically signed by Harvey Ann MD 08/24/23 15:52:
Empiric azithromycin switched to doxycycline in lieu of plan for start amiodarone.
Original Note:
Family Physician
-
Family Physician: Vale Myers
Chief Complaint
-
shortness of breath
History of Present Illness
63 male history rheumatoid arthritis DVT Eliquis hypertension HFrEF recent hospitalization in July septic shock secondary to pneumonia with associate acute on chronic HFrEF presents with progressive cough past few days associated with worsening
shortness of breath. Found to be in afib/aflutter RVR. Denies chest pain palpitations fever sneezing nausea vomiting constipation. Chest XR concerning for new onset right lower lobe pneumonia. Afebrile no leukocytosis. Patient denies
association coughing with meals. BNP significantly elevated 6070 from prior 2590. Lungs however clear to auscultation. No significant edema lower ext's. Patient denies any significant weight gain and reports compliance with medications.
Medical History
Past Medical History
Past Medical History: Reports Other (as above)
Past Surgical History: Reports Other (as above)
Social History
Tobacco: Non-smoker
Alcohol: None
Drug: None
Personal:
Living: With Family
Employment: Employed
Family History
Family History: Not pertinent (reviewed)
Allergies / Home Medications
Allergies reflects when Allergies were last updated in [facility].
Home Medications with original date entered in [facility]
Allergy/Medication List:
Allergies
Allergy/AdvReac Type Severity Reaction Status Date / Time
codeine Allergy Nausea Verified 08/24/23 09:51
Home Medications
apixaban 5 mg tablet (Eliquis) 5 mg PO BID Blood Clot Prevention/Tx 06/19/23
carvedilol 3.125 mg tablet 3.125 mg PO BID Blood Pressure 06/19/23
multivitamin 1 tab PO DAILY Supplement 06/19/23
furosemide 20 mg tablet (Lasix) 20 mg PO DAILY Fluid Retention/Swelling 08/04/23
Turmeric + Vitamin C Powder 1 dose PO DAILY 08/24/23
albuterol sulfate 90 mcg/actuation aerosol inhaler 1 puff inhalation R Q4HPRN PRN sob 08/24/23
empagliflozin 10 mg tablet (Jardiance) 10 mg PO DAILY 08/24/23
leflunomide 20 mg tablet 20 mg PO DAILY 08/24/23
Review of Systems
-
A 12 point ROS was completed and negative except as noted: Yes
Constitutional: Reports Other (as below)
Physical Exam
Vital Signs
Vital Signs
Temp Pulse BP Pulse Ox
98.1 F 135 115/81 98
08/24/23 09:41 08/24/23 09:41 08/24/23 09:41 08/24/23 09:41
Physical Exam
General: Other (as below)
Laboratory Results
-
08/24/23 10:43
08/24/23 10:43
Laboratory Results
PT 17.0 Sec (11.4-14.6) H 08/24/23 10:43
INR 1.40 08/24/23 10:43
APTT 32.6 Sec (23.4-35.0) 08/24/23 10:43
Total Bilirubin 0.9 mg/dl (0.2-1.3) 08/24/23 10:43
AST 35 U/L (17-59) 08/24/23 10:43
ALT 33 U/L (0-50) 08/24/23 10:43
Alkaline Phosphatase 78 U/L (38-126) 08/24/23 10:43
Impression/Plan
-
ROS
General: Denies fever chills night sweats unexpected weight loss
Neuro: Denies seizure shaking loss of consciousness dizziness vertigo
Psych: denies depression hallucinations confusion manic episodes
Endocrine: Denies polyuria polydipsia polyphagia heat/cold intolerance
HEENT: Denies blindness visual disturbances epistaxis
Pulmonary: SOB coughing chest tightness
Cardiovascular: denies chest pain palpitations leg swelling
Hematology: denies signs symptoms of anemia easy bruising/bleeding
Gastrointestinal: denies nausea vomiting diarrhea constipation hematemesis hematochezia melena
Genito-Urinary: denies retention incontinence dysuria
Musculoskeletal: denies joint pain weakness
Dermatology: denies rash laceration bruising
Physical Exam
General: No pallor, cyanosis, or jaundice.
HEENT: Throat clear. PERRLA Normocephalic atraumatic
NECK: Supple. No JVD Carotid Bruits
RESPIRATORY: Lungs clear to auscultation. No crackles wheezes stridor
CVS: Irregularly irregular tachycardia
ABDOMEN: Soft, non-tender. No distension. BS+/normal.
EXTREMITIES: No peripheral cyanosis or edema.
LAMP CLEANER: AOx3
IMPRESSION:
63 male MATTY CPAP history rheumatoid arthritis DVT Eliquis hypertension HFrEF recent hospitalization in July septic shock secondary to pneumonia with associate acute on chronic HFrEF presents with progressive cough past few days associated with
worsening shortness of breath. Found to be in afib/aflutter RVR. Denies chest pain palpitations fever sneezing nausea vomiting constipation. Chest XR concerning for new onset right lower lobe pneumonia. Afebrile no leukocytosis. Patient denies
association coughing with meals. BNP significantly elevated 6070 from prior 2590. Lungs however clear to auscultation. No significant edema lower ext's. Patient denies any significant weight gain and reports compliance with medications (though
appears to have significant weight gain 95.3 kg compared to last documented weight 77 kg prior to discharge).
PLAN:
#New Onset Afib/Aflutter RVR
#CXR concerning for new onset mild right lower lobe pneumonia. Afebrile no Leukocytosis. Patient recently completed abx regimen for sepsis pna
#Hypotension/Low Normotensive
IVU admit
empiric abx ceftriaxone azithromcyin for now
check blood cultures procalcitonin
cont cardizem gtt
Cardio eval
cont home Eliquis
midodrine prn
#Acute on Chronic HFrEF
BNP increased
diuresis as per cardio
daily weights
I&O
cont home Jardiance, Coreg with holding parameters
#Rheumatoid Arthritis
Continue Home Leflunomide
#MATTY
continue home CPAP
#Hx DVT
cont home Eliquis
GI ppx Protonix
Meds reconciled and resumed as appropriate
Full Code
I spent a total of 78 minutes with the patient or on the floor. More than 50% of this time involved counseling and coordination of care.
--- NOTE | 2023-08-24 13:08 | CON.CAR ---
Addendum entered and electronically signed by Ten Song MD 08/24/23 16:51:
63-year-old man admitted now with atrial flutter and predominant 2-1 AV conduction. He has a history of nonischemic cardiomyopathy by cardiac catheterization in 2022, baseline EF 30-35% with mitral regurgitation. Optimization of GDMT was difficult
related to mitral regurgitation and hypotension, but the patient was doing relatively well until admission for pneumonia with sepsis in early July 2023. Follow-up echocardiography showed a decrease in his EF to 25 to 30% and worsening of mitral
regurgitation to moderate to severe. Following discharge from his pneumonia, he noted increasing episodes of tachycardia associated with shortness of breath. Today, he felt more symptomatic at cardiac rehab, returned home, and then presented to
the emergency department with atrial flutter and relative hypotension. proBNP was 6070, and chest x-ray potentially consistent with right lower lobe pneumonia. Patient is intermittently unaware of tachycardia at this time.
Allergies: Codeine
Outpatient medications: Albuterol, carvedilol 3.125 twice daily, Eliquis 5 mg twice daily, Jardiance 10 mg a day, furosemide 20 mg a day, leflunomide,
PMH: Nonischemic cardiomyopathy, EF 25-30%, moderate-severe MR, cardiac catheterization May 2023 without obstructive CAD, hypertension, rheumatoid arthritis, history of DVT, and sleep apnea
PSH: Orthopedic and cholecystectomy
SH: , employed, non-smoker rare alcohol
FH: Positive for CAD
ROS negative except as above
Heart rate 140, 95/70, respiratory rate 18, and neck exam unremarkable, lungs relatively clear, JVD approximately 10, soft systolic murmur apex, abdomen benign, extremities without much edema neuro nonfocal, pulses palpable
Chest x-ray cardiomegaly, vascular congestion, possible right lower lobe pneumonia
Electrocardiogram: Atrial flutter with 2 1 conduction and PVC, nonspecific ST and T changes
Hemoglobin 11.9, INR 1.4, BUN and creatinine 25 and 1.0, potassium 4.1, proBNP 6070, negative procalcitonin
Impression:
Atrial flutter with rapid ventricular response
Acute on chronic heart failure with reduced ejection fraction, proBNP
Hypotension
Recent admission 07/24/2023 for Sepsis and shock/pneumonia
Chronic HFrEF
Nonischemic CM EF 25-30% by echo 06/12/23 and 35% (25% visual) by repeat echo 08/04/23
Moderate to severe mitral regurgitation
Normal coronary arteries by cath 06/19/23
HTN
RA
h/o DVT in 2014 and again 04/2023
Chronic Eliquis OAC
MATTY on CPAP
Plan:
He presents now with newly diagnosed atrial flutter with rapid ventricular response and acute on chronic HFrEF as a result, with underlying mitral regurgitation that is now moderate-severe. Rate control will prove difficult given his blood pressure.
Favor the initiation of amiodarone with carvedilol and short-term diltiazem for rate control. If hypotensive, we may need to consider transfer to the IMU for the use of Chuck-Synephrine.
We should plan on cardioversion in the a.m.
Thereafter, we will need to continue attempts to maximize GDMT.
With regards to etiology of cardiomyopathy, an MRI has been scheduled for the end of the month. We may need to consider a previously unrecognized tachycardia mediated cardiomyopathy as a contributor, and need to consider mitral regurgitation as a
secondary or primary issue.
Original Note:
Consultation
Consultation Request
Date/Time Consultation Requested: 08/24/2023
Date/Time Consultation Performed: 08/24/2023
Requesting Provider: Krunal Long PA-C
Performing Provider: Karlene Wan PA-C for Dr. MADELEINE Song
Reason for Consultation: Atrial flutter, SOB
Medical History
-
History of Present Illness:
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
and pneumonia who presents 08/24/2023 with acute onset shortness of breath, palpitations and tachycardia. Patient reports he had been doing well with stable weights and improving shortness of breath. He started cardiac rehab and was participating
without issues. However over the last several days he started to note intermittent episodes of palpitations associated with tachycardia and shortness of breath. He was able to complete cardiac rehab this morning but felt off. Upon getting home he
noted his heart rate was elevated and had worsening shortness of breath that persisted after several minutes prompting him to come to the emergency department. On admission he was noted to be in hypotensive in atrial fibrillation/flutter with rapid
ventricular response. proBNP was 6070. Chest x-ray shows new findings suggesting right lower lobe pneumonia. and he was placed on IV diltiazem drip.
At time of this evaluation patient continues to feel mildly short of breath with elevated heart rates and palpitations. He is currently wearing 2 L of oxygen via nasal cannula. He reports his weight has been relatively stable at home between 170
and 172 pounds. He denies lower extremity edema. He does feel his belly may be more bloated. He denies chest pain.
PMH:
Recent admission 07/24/2023 for Sepsis and shock/pneumonia
Chronic HFrEF
Nonischemic CM EF 25-30% by echo 06/12/23 and 35% (25% visual) by repeat echo 08/04/23
Moderate to severe mitral regurgitation
Normal coronary arteries by cath 06/19/23
HTN
RA
h/o DVT in 2014 and again 04/2023
Chronic Eliquis OAC
MATTY on CPAP
Past Medical History
Past Medical History: Other (See HPI)
Past Surgical History: Cardiac (LHC/RHC 05/2024), Cholecystectomy and Orthopedic
Social History
Tobacco: Non-Smoker
Alcohol: Occasional
Drug: None
Personal:
Living: With Family
Employment: Employed
Family History
Family History: CAD and Cancer
Allergies / Home Medications
Allergy/AdvReac Type Severity Reaction Status Date / Time
codeine Allergy Nausea Verified 08/24/23 09:51
Medication Instructions Recorded Confirmed Type
apixaban 5 mg tablet (Eliquis) 5 mg PO BID Blood Clot 06/19/23 08/24/23 History
Prevention/Tx
carvedilol 3.125 mg tablet 3.125 mg PO BID Blood Pressure 06/19/23 08/24/23 History
multivitamin 1 tab PO DAILY Supplement 06/19/23 08/24/23 History
furosemide 20 mg tablet (Lasix) 20 mg PO DAILY Fluid 08/04/23 08/24/23 History
Retention/Swelling
Turmeric + Vitamin C Powder 1 dose PO DAILY 08/24/23 08/24/23 History
albuterol sulfate 90 mcg/actuation 1 puff inhalation R Q4HPRN PRN sob 08/24/23 08/24/23 History
aerosol inhaler
empagliflozin 10 mg tablet 10 mg PO DAILY 08/24/23 08/24/23 History
(Jardiance)
leflunomide 20 mg tablet 20 mg PO DAILY 08/24/23 08/24/23 History
Review of Systems
-
History Source: Patient
All other systems: Negative unless noted
Physical Exam
Vital Signs
Temp Pulse Resp BP Pulse Ox
98.1 F 114 10 100/76 92
08/24/23 09:41 08/24/23 12:45 08/24/23 12:45 08/24/23 12:31 08/24/23 12:45
GEN: No distress, awake, Ox3, appears ill
HEENT: supple, anicteric, mmm
LUNGS:crackles with reduced BS at bases Rt>Lt wearing oxygen 2 L via nasal cannula
CV: Reg, S1/S2, 2/6 syst murmur at apex
ABD: soft, BS+, NT/ND
EXT: trace edema, no clubbing or cyanosis
NEURO: Gross non-focal
SKIN: No rash, warm, dry, pink
Lab Results
08/24/23 10:43
08/24/23 10:43
Zoe-D-Vpdajutrpav Pept 6070 pg/ml 08/24/23 10:43
Impression / Plan
-
PCP: Dr. Myers
Cardiology: Dr. Ramsey
Impression:
Presented 08/24/2023 with palpitations, tachycardia and shortness of breath
Atrial flutter with rapid ventricular response
Acute on chronic heart failure with reduced ejection fraction, proBNP
Concern for pneumonia
Acute hypoxic respiratory insufficiency
Hypotension
Recent admission 07/24/2023 for Sepsis and shock/pneumonia
Chronic HFrEF
Nonischemic CM EF 25-30% by echo 06/12/23 and 35% (25% visual) by repeat echo 08/04/23
Moderate to severe mitral regurgitation
Normal coronary arteries by cath 06/19/23
HTN
RA
h/o DVT in 2014 and again 04/2023
Chronic Eliquis OAC
MATTY on CPAP
Echo 06/12/23:�EF 25-30%, mod MR, mild TR with PAP 25-30 mmHg
Echo 08/04/23: EF 35% quantitatively but 25% by visual estimate, mod to sev MR
Cardiac cath May 2023:Non-obstructive CAD. Wedge was 29.
Plan:
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
and pneumonia who presents 08/24/2023 with acute onset shortness of breath, palpitations and tachycardia. Patient reports he had been doing well with stable weights and improving shortness of breath. He started cardiac rehab and was participating
without issues. However over the last several days he started to note intermittent episodes of palpitations associated with tachycardia and shortness of breath. He was able to complete cardiac rehab this morning but felt off. Upon getting home he
noted his heart rate was elevated and had worsening shortness of breath that persisted after several minutes prompting him to come to the emergency department. On admission he was noted to be in hypotensive in atrial fibrillation/flutter with rapid
ventricular response. proBNP was 6070. Chest x-ray shows new findings suggesting right lower lobe pneumonia. and he was placed on IV diltiazem drip.
At time of this evaluation patient continues to feel mildly short of breath with elevated heart rates and palpitations. He is currently wearing 2 L of oxygen via nasal cannula. He reports his weight has been relatively stable at home between 170
and 172 pounds. He denies lower extremity edema. He does feel his belly may be more bloated. He denies chest pain.
-Presents 08/24/2023 with palpitations, tachycardia and shortness of breath
-New onset atrial fibrillation/flutter with rapid ventricular response. Currently on IV diltiazem drip. Hypotension limiting up titration of Cardizem. Start Amiodarone for rate control
-Patient maintained on chronic anticoagulation with Eliquis 5 mg twice a day for history of recurrent DVT. He denies missing or skipping any doses. Would consider cardioversion once stable from a volume standpoint.
-Acute on chronic heart failure with reduced ejection fraction. proBNP 6070 which is higher than prior admissions. Would give IV Lasix 40 mg x 1 now and monitored her diuretic response.
-Hypotension has prevented up titration of GDMT. Maintained on low dose Coreg as outpt. Would hold Coreg at this time. Patient no longer on MITCHELL/ARB/Entresto or Aldactone secondary to hypotension. Continue Jardiance
-Concern for recurrent pneumonia. IV antibiotic azithromycin and Rocephin start per primary service.
-Outpatient cardiac MRI scheduled 09/18/2023 to evaluate for infiltrative disease as a possible cause of his newly diagnosed cardiomyopathy
Data Reviewed
-
EKG: Report Reviewed by me, Discussed with Physician and Discussed with Patient
Radiology: Report Reviewed by me, Discussed with Physician and Discussed with Patient
Labs: Labs Reviewed by me, Discussed with Physician and Discussed with Patient
Old Records: Reviewed
[2023-08-24] MEDS: ROCEPHIN 1000 MG IV (15:27)
[2023-08-24] MEDS: ZITHROMAX INFUSION 250 IV (15:27)
--- NOTE | 2023-08-24 15:27 | CM ---
CM reviewed medical records. Patient lives independently with spouse. Patient is active with his PCP. Patient has medication coverage. Patient does not have a history of VN or SNF. Patient does participate in outpatient cardiac rehab. CM will
continue to follow for needs.
PLAN: home
[2023-08-24] MEDS: STERILE WATER FOR INJECTION 10 ML IV (15:28)
[2023-08-24 15:29] LABS: Procalcitonin < 0.05 ng/ml (0.0-0.25)
[2023-08-24 16:01] LABS: TSH Reflex To Free T4 2.96 uIU/ml (0.47-4.68)
[2023-08-24] MEDS: PACERONE 400 MG PO ×2 (16:17→23:32)
[2023-08-24] MEDS: LASIX 40 MG IV (16:18)
--- NOTE | 2023-08-24 16:30 | PTCARENOTE ---
Pt received from the ED at 1606. Pt in afib, rate in the 120's to 140's. Cardizem infusing at 5ml. Room air sat 95%. Denies any chest pain or palps the time.
--- NOTE | 2023-08-24 17:21 | RESPNOTE ---
spoke to patient regarding own cpap. patient states will bring machine tonight or tomorrow. patient prefers his own machine to hospital unit.
--- NOTE | 2023-08-24 18:21 | PTCARENOTE ---
Cardizem rate increased to 10ml. Rate in the 140's. Pt with sob. O2 placed at 2LNC. Po amiodarone and IV lasix given as ordered. Rate back in the 100's to 120's. Pt remains on 02 but states he feels better.
[2023-08-24] MEDS: ProAmatine 5 MG PO (19:43)
[2023-08-24] MEDS: ELIQUIS 5 MG PO (19:43)
[2023-08-24] MEDS: XOPENEX 1.25 MG INHALANT SOLUTION INH (20:01)
[2023-08-24] MEDS: COREG PO (21:13)
[2023-08-24] MEDS: ATIVAN 0.25 MG PO (22:13)
[2023-08-25] VITALS (15 sets, daily range): BP systolic 88–149; BP diastolic 60–128; BMI 20.9; BMI 21.2
--- NOTE | 2023-08-25 00:37 | PTCARENOTE ---
received patient at the change of shift. AAOx3. resting in bed. patient denies any pain. HR Afib 100s. increased rate with movement. patient denies any palpitations. patient c/o shortness of breath. tachypnea noted at times. CARLOS. lungs clear. 96% on
2L. patient requested PRN neb-see mar. reviewed plan of care with patient and verbalized understanding. came to visit-answered all questions. NPO at midnight for RICHY/CV.
patient stated feeling anxious. increased RR and patient appeared anxious. patient stated having anxiety symptoms since being admitted with sepsis last month. updated [facility] [employer]ER. ativan ordered and given, see mar.
cardizem gtt titrated to 5 ml/hr for low blood pressures. infusion then turned off for bp 84/66 at approx 2315. updated [facility] hospitalist CHIP MIXER. okay to give ordered dose of Amio PO per CHIP M[employer]ER. currently HR afib 90s. bp 95/75. patient denies any
lightheadedness/dizziness.
[2023-08-25 04:23] LABS: Hematocrit 32.1 % (39.0-52.0); Hemoglobin 11.6 g/dL (13.0-18.0); Mean Corp Hgb Conc. 36.1 g/dL (33.0-37.0); Mean Corpuscular Hgb 31.3 pg (27.0-31.0); Mean Corpuscular Volume 86.5 fL (80.0-94.0); Mean Platelet Volume 10.7 fL (7.4-10.4); Platelet Count 233 10^3/uL (130-400); Red Blood Cell Count 3.71 10^6/uL (4.70-6.10); Red Cell Dist. Width 12.9 % (11.5-14.5); White Blood Cell Count 7.5 10^3/uL (4.8-10.8)
[2023-08-25 04:47] LABS: Blood Urea Nitrogen 24 mg/dl (9-20); Calcium 9.1 mg/dl (8.4-10.2); Carbon Dioxide 18 mmol/L (22-30); Chloride 108 mmol/L (98-107); Estimated Creatinine Clearance 81 ml/min; Glucose 112 mg/dl (70-99); Magnesium 2.2 mg/dl (1.6-2.3); Sodium 137 mmol/L (135-145); eGFR > 60.00
[2023-08-25 04:56] LABS: Troponin I 0.032 ng/ml
--- NOTE | 2023-08-25 05:14 | RESPNOTE ---
pt did not wish to wear home cpap tonight, asked if he could sign the release forms tomorrow, due to being sleepy. And he did not wish to wear a hospital unit as well
[2023-08-25 05:33] LABS: Hepatitis C Antibody Negative (Negative)
[2023-08-25] MEDS: XOPENEX 1.25 MG INHALANT SOLUTION INH ×2 (06:39→23:19)
[2023-08-25] MEDS: ELIQUIS 5 MG PO ×2 (07:11→20:34)
[2023-08-25] MEDS: PACERONE 400 MG PO (07:11)
[2023-08-25] MEDS: PROTONIX 40 MG PO (07:12)
[2023-08-25] MEDS: THERAGRAN 1 TABLET PO (07:13)
[2023-08-25] MEDS: JARDIANCE 10 MG PO (07:13)
[2023-08-25] MEDS: COREG 3.125 MG PO ×2 (07:13→20:33)
[2023-08-25] MEDS: LASIX 20 MG PO (07:13)
--- NOTE | 2023-08-25 07:54 | W.PN.HOSP.TC ---
Today's Communication/Plan
-
Amiodarone diuresis as per cardio
prn antiemetics
ativan prn
midodrine prn
cont telemonitor
bicarb supplementation mild metabolic acidosis
Assessment / Plan
Assessment / Plan
Physical Exam
General: No pallor, cyanosis, or jaundice.
HEENT: Throat clear. PERRLA Normocephalic atraumatic
NECK: Supple. No JVD Carotid Bruits
RESPIRATORY: Lungs clear to auscultation. No crackles wheezes stridor
CVS: Irregularly irregular tachycardia
ABDOMEN: Soft, non-tender. No distension. BS+/normal.
EXTREMITIES: No peripheral cyanosis or edema.
RN NEUROSURGICAL: AOx3
IMPRESSION:
63M MATTY CPAP history rheumatoid arthritis DVT Eliquis hypertension HFrEF recent hospitalization in July septic shock secondary to pneumonia with associate acute on chronic HFrEF presents with progressive cough past few days associated with
worsening shortness of breath.� Found to be in afib/aflutter RVR.� Denied chest pain palpitations fever sneezing nausea vomiting constipation.� Chest XR concerning for new onset right lower lobe pneumonia.� Afebrile no leukocytosis.� Procalcitonin
negative. Empiric abx soon discontinued. Patient denies association coughing with meals.� BNP significantly elevated 6070 from prior 2590.� Lungs however clear to auscultation.� No significant edema lower ext's.� Patient denies any significant
weight gain and reports compliance with medications (Correction to prior documentation, mild increase in weight 76.289 from discharge to 77.111kg on presentation).�
PLAN:
#New Onset Afib/Aflutter RVR
#CXR concerning for new onset mild right lower lobe pneumonia more likely residual effect from past completed pneumonia treatment. Procalcitonin neg, unlikely active pna infection at this time.
#Hypotension/Low Normotensive
IVU admit
empiric abx ceftriaxone azithromcyin discontinued
blood cultures NGTD
Cardio eval appreciated Cardizem gtt completed, started on Amiodarone
cont home Eliquis
midodrine prn
Planned for Cardioversion 08/24 however patient spontaneously converted to NSR, cardioversion since canceled
#nausea/vomiting
possible amiodarone side effect on empty stomach while NPO for cardioversion as above
received zofrance once,
prn compazine, Tigan ordered
#Possible anxiety contributing to episodic feelings shortness of breath chest tightness
#also possible contributing to nausea
ativan prn
#Acute on Chronic HFrEF
BNP increased
diuresis as per cardio
daily weights
I&O
cont home Jardiance, Coreg with holding parameters
Metabolic Acidosis mild
low dose Bicarb PO supplementation started
Mild QT prolongation
-minimize QT prolonging agent use as possible
#Rheumatoid Arthritis
Continue Home Leflunomide
#MATTY
continue home CPAP
#Hx DVT
cont home Eliquis
GI ppx Protonix
Full Code
I spent a total of� 58� � minutes with the patient or on the floor. More than 50% of this time involved counseling and coordination of care.
Anticipated Discharge: 24 - 48 hours
Subjective/Interval History
-
Date of Service: August 25, 2023
Seen and examined at bedside in no acute distress sitting up comfortably in bed. patient later converted NSR later in day but developed nausea vomiting following Amiodarone on Empty stomach while NPO for cardioversion since canceled. Patient also
reports episodic shortness of breath chest tightness that patient feels is due to anxiety.
Objective Data
-
Labs:
Laboratory Results
08/25/23
04:06
WBC 7.5
Hgb 11.6 L
Hct 32.1 L
Plt Count 233
Sodium 137
Potassium 4.0
Chloride 108 H
Carbon Dioxide 18 L
BUN 24 H
Creatinine 1.0
Glucose 112 H
Calcium 9.1
Vital Signs:
Vital Signs
Temp Pulse Resp BP Pulse Ox
97.7 F 130 16 95/69 99
08/25/23 06:40 08/25/23 06:45 08/25/23 06:42 08/25/23 06:36 08/25/23 06:42
I&O
08/24/23 08/25/23 08/26/23
06:59 06:59 06:59
Output Total 1974
Balance -1974
--- NOTE | 2023-08-25 09:40 | W.PN.CARDCBS ---
Addendum entered and electronically signed by Finn Ramsey DO 08/25/23 11:16:
I saw and examined the patient.
The Fish [employer] Wildlife Warden's note was reviewed and I agree with the note.
Comment:
Plan:
Cont Amiodarone load. Cont Amiodarone for now. Pt understands that Amiodarone use is for near future but not necessarily a nursing home plan for rhythm control.
Cardioversion today
Ultimately may consider ablation for atrial flutter if recurrence.
Cont Eliquis which he has been on for DVT and not missed dosing.
Cardiac MR as outpt.
Cont IV lasix diuresis. He will get addtional lasix IV this PM
Wt coming down.
His CM regimen has been limited by hypotension.
Original Note:
Today's Communication / Plan
-
Amiodarone 400 mg 3 times daily, coreg 3.125mg BID
eliquis 5mg BID
CV today
consider additional IV lasix post CV
OP cardiac MRI
Impression / Plan
-
PCP: Dr. Myers
Cardiology: Dr. Ramsey
Impression:
Presented 08/24/2023 with palpitations, tachycardia and shortness of breath
Atrial flutter with rapid ventricular response
Acute on chronic heart failure with reduced ejection fraction, proBNP
Concern for pneumonia
Acute hypoxic respiratory insufficiency
Hypotension
Recent admission 07/24/2023 for Sepsis and shock/pneumonia
Chronic HFrEF
Nonischemic CM EF 25-30% by echo 06/12/23 and 35% (25% visual) by repeat echo 08/04/23
Moderate to severe mitral regurgitation
Normal coronary arteries by cath 06/19/23
HTN
RA
h/o DVT in 2014 and again 04/2023
Chronic Eliquis OAC
MATTY on CPAP
Echo 06/12/23:�EF 25-30%, mod MR, mild TR with PAP 25-30 mmHg
Echo 08/04/23: EF 35% quantitatively but 25% by visual estimate, mod to sev MR
Cardiac cath May 2023:Non-obstructive CAD. Wedge was 29.
Plan:
-Presented in new atrial fibrillation/flutter with rapid ventricular response. Currently remains in atrial fibrillation. IV cardizem now off
-Continue amiodarone loading 400 mg 3 times daily. Continue outpatient Coreg 3.125 mg twice daily
-Scheduled for cardioversion today. Continue Eliquis for both atrial fib/flutter as well as recurrent DVT. No missed doses as an outpatient
-proBNP 6070. Weight down 2 pounds overnight if accurate. Status post IV Lasix x1 on 08/24/23. Received 20 mg p.o. Lasix this morning, will likely give additional IV dose this afternoon. Creatinine stable at 1.0
-With moderate to severe MR by echo 08/04/2023 in the setting of dilated cardiomyopathy, EF 35%.
-Scheduled for outpatient cardiac MRI 09/18/2023 to evaluate for infiltrative disease
-Uptitration of outpatient cardiomyopathy regimen limited by hypotension. Continue beta-vinita/Jardiance.
PREADMIT DATA:
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
and pneumonia who presents 08/24/2023 with acute onset shortness of breath, palpitations and tachycardia. Patient reports he had been doing well with stable weights and improving shortness of breath. He started cardiac rehab and was participating
without issues. However over the last several days he started to note intermittent episodes of palpitations associated with tachycardia and shortness of breath. He was able to complete cardiac rehab this morning but felt off. Upon getting home he
noted his heart rate was elevated and had worsening shortness of breath that persisted after several minutes prompting him to come to the emergency department. On admission he was noted to be in hypotensive in atrial fibrillation/flutter with rapid
ventricular response. proBNP was 6070. Chest x-ray shows new findings suggesting right lower lobe pneumonia. and he was placed on IV diltiazem drip.
At time of this evaluation patient continues to feel mildly short of breath with elevated heart rates and palpitations. He is currently wearing 2 L of oxygen via nasal cannula. He reports his weight has been relatively stable at home between 170
and 172 pounds. He denies lower extremity edema. He does feel his belly may be more bloated. He denies chest pain.
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
Subjective
Date of Service: August 25, 2023
Patient reports some shortness of breath. Denies chest pain
Objective
Labs:
08/25/23 04:06
08/25/23 04:06
Labs
Hgb 11.6 g/dL (13.0-18.0) L 08/25/23 04:06
Hct 32.1 % (39.0-52.0) L 08/25/23 04:06
Plt Count 233 10^3/uL (130-400) 08/25/23 04:06
PT 17.0 Sec (11.4-14.6) H 08/24/23 10:43
INR 1.40 08/24/23 10:43
APTT 32.6 Sec (23.4-35.0) 08/24/23 10:43
Sodium 137 mmol/L (135-145) 08/25/23 04:06
Potassium 4.0 mmol/L (3.5-5.1) 08/25/23 04:06
BUN 24 mg/dl (9-20) H 08/25/23 04:06
Creatinine 1.0 mg/dL (0.7-1.3) 08/25/23 04:06
Glucose 112 mg/dl (70-99) H 08/25/23 04:06
Troponins
08/25/23
04:06
Troponin I 0.032
Vital Signs and I&O:
Vital Signs
Temp Pulse Resp BP Pulse Ox
97.7 F 130 16 95/69 99
08/25/23 06:40 08/25/23 06:45 08/25/23 06:42 08/25/23 06:36 08/25/23 06:42
Vital Signs
Temp Pulse Resp BP Pulse Ox
97.7 F 130 16 95/69 99
08/25/23 06:40 08/25/23 06:45 08/25/23 06:42 08/25/23 06:36 08/25/23 06:42
Intake & Output
08/23/23 08/24/23 08/25/23 08/26/23
07:59 07:59 07:59 07:59
Output Total 1974
Balance -1974 -1974
Physical Exam
Physical Exam
GEN: No distress, awake, alert, oriented x3 on supplemental O2
HEENT: supple, anicteric, mmm, EOMI
LUNGS: Few crackles at bases, no wheezes/rales
CV: Irreg, S1/S2, 2/6 apex murmur
ABD: soft, BS+, NT/ND
EXT: No cyanosis, clubbing. Trace edema of B/L LE
NEURO: Gross non-focal
SKIN: Warm, pink, dry. No rash
--- NOTE | 2023-08-25 10:03 | CM ---
Reviewed chart. Met. with Mr. Richard to review discharge plans. He states prior to admission he resides with his spouse in a three story [place] with six steps to enter. He states he has a full flight of steps to get to bedroom/full bathroom. He states
he has a powder room on the first floor. He states prior to admission he was independent with ambulation and adls. He states he has a CPAP Machine at home and no other DME in the [place]. He states he has a prescription plan and uses [facility].
Medical work-up in progress. The discharge plan is to return home with his spouse when medically stable.
--- NOTE | 2023-08-25 12:04 | W.PN.UPDATE ---
Update Note
Progress Note Update
he converted to SR @ 11:20AM. cardioversion cancelled. diet ordered. patient informed. continue amio load, likely decrease dose in AM.
[2023-08-25] MEDS: STERILE WATER FOR INJECTION IV (13:01)
[2023-08-25] MEDS: LASIX 20 MG IV (13:30)
--- NOTE | 2023-08-25 15:24 | W.PN.UPDATE ---
Update Note
Progress Note Update
CTSP by nursing as patient complaining of N/V. likely secondary to amiodarone in setting of NPO status. order for zofran 4mg IV x1. QTc stable by EKG this AM. amiodarone dose decreased to 200mg BID. also c/o 'gasping episodes' which also occurred at
home however are occurring more frequently here. denies feeling anxious. pulse ox during episode while I was in room remains 95-96% on 2L NC. he is tachycardic in SR, HR 90-100s. he has history of ST in past. has been on continuous OAC so low risk
for PE. CXR 3/ with mild RLL PNA and tiny R effusion. consider repeat CXR. updated hospitalist.
[2023-08-25] MEDS: ZOFRAN 4 MG IV (15:26)
[2023-08-25] MEDS: SODIUM BICARBONATE 325 MG PO ×2 (15:29→23:02)
--- NOTE | 2023-08-25 18:20 | PTCARENOTE ---
Pt converted to SR/ST at approx 1200. Pt states he still feels like he has to gasp for air. Remains on O2 at 2LNC. Pt ambulating to the bathroom. Gait steady. Pt started with nausea and vomiting this afternoon. Shruti CHURCHILL notified. Medicated
with Zofran as ordered with relief but later drank some david nereyda and had more nausea and a small amount of mucus emesis. Pt remains in SR.
[2023-08-25] MEDS: COMPAZINE 10 MG IV (19:20)
[2023-08-25] MEDS: ATIVAN 0.25 MG IV (19:20)
[2023-08-25] MEDS: NSS (PRESERVATIVE FREE) 0.125 ML IV (19:20)
--- NOTE | 2023-08-25 19:36 | RESPNOTE ---
unable to get pt to sign wavier as he states he will not be using it
[2023-08-25] MEDS: PACERONE 200 MG PO (20:34)
--- NOTE | 2023-08-25 21:32 | PTCARENOTE ---
assumed care of patient at the change of shift. patient dry heaving and states feeling very nauseous. comfort meausres provided. Day shift RN updated doctor and orders were placed. Compazine and ativan given, see mar.
patient currently resting in bed comfortably and states feeling better. patient able to tolerate oral meds. tolerated a few pieces of toast as well. Hr SR 90s. bp stable. patient states shortness of breath comes and goes. comfortable at this time.
lungs clear. 93 on RA. educated patient to inform RN with any new changes. door closed per patients request.
[2023-08-26] VITALS (8 sets, daily range): BP systolic 82–106; BP diastolic 64–78; BMI 20.7
[2023-08-26] MEDS: ATIVAN 0.5 MG PO ×2 (04:16→18:54)
[2023-08-26] MEDS: ProAmatine 5 MG PO (04:16)
--- NOTE | 2023-08-26 04:20 | PTCARENOTE ---
patient states sleeping well but at times becomes short of breath. feels like he is breathing heavy. during this time, patient tachypneic. labored breathing. patient unsure if anxious but he feels increased breathing gives him a feeling of anxiety.
offered patient PRN anxiety medications. PO ativan given per patients request, see mar. patient states prn neb treatment helped overnight. denies any nausea at this time. HR overnight SR 80s-90s. bp 99/72. prn midodrine given, see mar. denies any
lightheadedness/dizziness.
[2023-08-26 04:44] LABS: Hematocrit 32.9 % (39.0-52.0); Hemoglobin 11.6 g/dL (13.0-18.0); Mean Corp Hgb Conc. 35.3 g/dL (33.0-37.0); Mean Corpuscular Hgb 30.9 pg (27.0-31.0); Mean Corpuscular Volume 87.5 fL (80.0-94.0); Platelet Count 242 10^3/uL (130-400); Red Blood Cell Count 3.76 10^6/uL (4.70-6.10); Red Cell Dist. Width 12.8 % (11.5-14.5); White Blood Cell Count 7.1 10^3/uL (4.8-10.8)
[2023-08-26 05:10] LABS: Blood Urea Nitrogen 36 mg/dl (9-20); Calcium 9.1 mg/dl (8.4-10.2); Carbon Dioxide 16 mmol/L (22-30); Chloride 107 mmol/L (98-107); Estimated Creatinine Clearance 68 ml/min; Glucose 113 mg/dl (70-99); Magnesium 2.3 mg/dl (1.6-2.3); Potassium 4.3 mmol/L (3.5-5.1); Sodium 136 mmol/L (135-145); eGFR > 60.00
--- NOTE | 2023-08-26 08:08 | W.PN.HOSP.TC ---
Today's Communication/Plan
-
Cardiac MRI Amiodarone diuresis low dose enalapril as per cardio
prn antiemetics
ativan prn
scheduled midodrine with holding parameters and prn
cont telemonitor
bicarb supplementation mild metabolic acidosis
Assessment / Plan
Assessment / Plan
Physical Exam
General: No pallor, cyanosis, or jaundice.
HEENT: Throat clear. PERRLA Normocephalic atraumatic
NECK: Supple. No JVD Carotid Bruits
RESPIRATORY: Lungs clear to auscultation. No crackles wheezes stridor
CVS: Sinus tachy
ABDOMEN: Soft, non-tender. No distension. BS+/normal.
EXTREMITIES: No peripheral cyanosis or edema.
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
IMPRESSION:
63M MATTY CPAP history rheumatoid arthritis DVT Eliquis hypertension HFrEF recent hospitalization in July septic shock secondary to pneumonia with associate acute on chronic HFrEF presents with progressive cough past few days associated with
worsening shortness of breath.� Found to be in afib/aflutter RVR.� Denied chest pain palpitations fever sneezing nausea vomiting constipation.� Chest XR concerning for new onset right lower lobe pneumonia.� Afebrile no leukocytosis.� Procalcitonin
negative. Empiric abx soon discontinued. Patient denies association coughing with meals.� BNP significantly elevated 6070 from prior 2590.� Lungs however clear to auscultation.� No significant edema lower ext's.� Patient denies any significant
weight gain and reports compliance with medications (Correction to prior documentation, mild increase in weight 76.289 from discharge to 77.111kg on presentation).�
PLAN:
#New Onset Afib/Aflutter RVR
#CXR concerning for new onset mild right lower lobe pneumonia more likely residual effect from past completed pneumonia treatment. Procalcitonin neg, unlikely active pna infection at this time.
#Hypotension/Low Normotensive
IVU admit
empiric abx ceftriaxone azithromcyin discontinued
blood cultures NGTD
Cardio eval appreciated Cardizem gtt completed, started on Amiodarone, cont
cont home Eliquis
midodrine prn, scheduled midodrine started with holding parameters, cont
Planned for Cardioversion 08/24 however patient spontaneously converted to NSR, cardioversion since canceled
#nausea/vomiting
possible amiodarone side effect on empty stomach while NPO for cardioversion as above
prn compazine, Tigan
#Possible anxiety contributing to episodic feelings shortness of breath chest tightness
#also possible contributing to nausea
ativan prn
#Acute on Chronic HFrEF
BNP increased
diuresis as per cardio
daily weights
I&O
cont home Jardiance, Coreg with holding parameters
Cardio eval appreciated inpt Cardiac MRI, unlikely to tolerate Entresto, low dose enalapril started
Metabolic Acidosis mild
low dose Bicarb PO supplementation started, continue
Mild QT prolongation
-minimize QT prolonging agent use as possible
#Rheumatoid Arthritis
Continue Home Leflunomide
#MATTY
continue home CPAP
#Hx DVT
cont home Eliquis
GI ppx Protonix
Full Code
I spent a total of� 57� � minutes with the patient or on the floor. More than 50% of this time involved counseling and coordination of care.
Anticipated Discharge: 24 - 48 hours
Subjective/Interval History
-
Date of Service: August 26, 2023
reports improvement in episodic shortness of breath. Nauseous awaiting cardiac MRI.
Objective Data
-
Labs:
Laboratory Results
08/26/23
04:15
WBC 7.1
Hgb 11.6 L
Hct 32.9 L
Plt Count 242
Sodium 136
Potassium 4.3
Chloride 107
Carbon Dioxide 16 L
BUN 36 H
Creatinine 1.2
Glucose 113 H
Calcium 9.1
Vital Signs:
Vital Signs
Temp Pulse Resp BP Pulse Ox
97.9 F 87 20 97/71 97
08/26/23 06:59 08/26/23 07:45 08/26/23 06:59 08/26/23 07:01 08/26/23 06:59
I&O
08/25/23 08/26/23 08/27/23
06:59 06:59 06:59
Output Total 1974 800 / 800
Balance -1974 -1974 -800 / -800
--- NOTE | 2023-08-26 10:25 | W.PN.CARDCBS ---
Addendum entered and electronically signed by Shruti Lazo PA-C 08/26/23 13:10:
correction to below: typical atrial flutter
Addendum entered and electronically signed by Patience Ang MD 08/26/23 12:17:
I saw and examined the patient.
The Opthalmic Tech's note was reviewed and I agree with the note.
Comment: He is quite complex with severe nonischemic cardiomyopathy and heart failure with reduced ejection fraction.
Unknown etiology of cardiomyopathy and plan previously for outpatient MRI. Given degree of illness we will try to proceed with inpatient MRI to help guide prognosis.
In addition, atrial flutter may be the etiology of cardiomyopathy or at least contributing. He remains currently in sinus rhythm on amiodarone and anticoagulation which will be continued.
Given young age would eventually have EP evaluation for atrial flutter ablation.
Also once more information received and patient has been on treatment for 3 months risk stratify for sudden .
Continue guideline directed medical therapy as tolerates. Blood pressure limits medications. We will try to add low-dose enalapril I do not think he will tolerate Entresto at this time but will continue to reassess.
EKG reviewed. QT interval currently acceptable.
Continue to follow mitral regurgitation which is moderate to severe.
Original Note:
Today's Communication / Plan
-
Remains in sinus
Continue amiodarone 200 mg twice daily, Coreg, Eliquis, Jardiance
Attempting to schedule inpatient cardiac MRI
Holding on further IV Lasix, continue p.o.
Add low-dose enalapril
Outpatient EP eval for flutter ablation
Impression / Plan
-
PCP: Dr. Myers
Cardiology: Dr. Ramsey
Impression:
Presented 08/24/2023 with palpitations, tachycardia and shortness of breath
Atrial flutter with rapid ventricular response
Acute on chronic heart failure with reduced ejection fraction, proBNP
Concern for pneumonia
Acute hypoxic respiratory insufficiency
Hypotension
Recent admission 07/24/2023 for Sepsis and shock/pneumonia
Chronic HFrEF
Nonischemic CM EF 25-30% by echo 06/12/23 and 35% (25% visual) by repeat echo 08/04/23
Moderate to severe mitral regurgitation
Normal coronary arteries by cath 06/19/23
HTN
RA
h/o DVT in 2014 and again 04/2023
Chronic Eliquis OAC
MATTY on CPAP
Echo 06/12/23:�EF 25-30%, mod MR, mild TR with PAP 25-30 mmHg
Echo 08/04/23: EF 35% quantitatively but 25% by visual estimate, mod to sev MR
Cardiac cath May 2023:Non-obstructive CAD. Wedge was 29.
Plan:
-He remains back in sinus rhythm overnight. Presented with new aflutter with RVR
-Continue amiodarone at lower dose of 200 mg twice daily. No further nausea overnight. QTc stable
-Continue Eliquis for a flutter as well as recurrent DVT, no missed doses
-Would consider outpatient EP eval for flutter ablation
-He has a nonischemic dilated cardiomyopathy of unclear etiology as well as moderate to severe MR. As an outpatient he was scheduled for cardiac MRI 09/18/2023. Given admission, will attempt to complete as inpatient. Awaiting availability from MRI
department
-Breathing improved today. Received IV Lasix 20 mg on 08/23 and 08/24. Back on p.o. Lasix 20 mg daily. Creatinine up to 1.2, so we will hold on further IV doses at this time
-Continue Coreg, Jardiance. Hypotension has previously limited further up titration of cardiomyopathy regimen. Will attempt to add low-dose enalapril. Could consider for transition to ARNI/add Aldactone as an outpatient if blood pressure allows
-He reports he received dose of IV Ativan for anxiety last evening, which he thinks did help.
-Discussed with nursing
PREADMIT DATA:
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
and pneumonia who presents 08/24/2023 with acute onset shortness of breath, palpitations and tachycardia. Patient reports he had been doing well with stable weights and improving shortness of breath. He started cardiac rehab and was participating
without issues. However over the last several days he started to note intermittent episodes of palpitations associated with tachycardia and shortness of breath. He was able to complete cardiac rehab this morning but felt off. Upon getting home he
noted his heart rate was elevated and had worsening shortness of breath that persisted after several minutes prompting him to come to the emergency department. On admission he was noted to be in hypotensive in atrial fibrillation/flutter with rapid
ventricular response. proBNP was 6070. Chest x-ray shows new findings suggesting right lower lobe pneumonia. and he was placed on IV diltiazem drip.
At time of this evaluation patient continues to feel mildly short of breath with elevated heart rates and palpitations. He is currently wearing 2 L of oxygen via nasal cannula. He reports his weight has been relatively stable at home between 170
and 172 pounds. He denies lower extremity edema. He does feel his belly may be more bloated. He denies chest pain.
Progress Note - Corporate Account Executive
Subjective
Date of Service: August 26, 2023
Reports breathing and nausea better today.
Objective
Labs:
08/26/23 04:15
08/26/23 04:15
Labs
Hgb 11.6 g/dL (13.0-18.0) L 08/26/23 04:15
Hct 32.9 % (39.0-52.0) L 08/26/23 04:15
Plt Count 242 10^3/uL (130-400) 08/26/23 04:15
PT 17.0 Sec (11.4-14.6) H 08/24/23 10:43
INR 1.40 08/24/23 10:43
APTT 32.6 Sec (23.4-35.0) 08/24/23 10:43
Sodium 136 mmol/L (135-145) 08/26/23 04:15
Potassium 4.3 mmol/L (3.5-5.1) 08/26/23 04:15
BUN 36 mg/dl (9-20) H 08/26/23 04:15
Creatinine 1.2 mg/dL (0.7-1.3) 08/26/23 04:15
Glucose 113 mg/dl (70-99) H 08/26/23 04:15
Troponins
08/25/23
04:06
Troponin I 0.032
Vital Signs and I&O:
Vital Signs
Temp Pulse Resp BP Pulse Ox
97.9 F 87 20 97/71 97
08/26/23 06:59 08/26/23 07:45 08/26/23 06:59 08/26/23 07:01 08/26/23 06:59
Vital Signs
Temp Pulse Resp BP Pulse Ox
97.9 F 87 20 97/71 97
08/26/23 06:59 08/26/23 07:45 08/26/23 06:59 08/26/23 07:01 08/26/23 06:59
Intake & Output
08/24/23 08/25/23 08/26/23 08/27/23
07:59 07:59 07:59 07:59
Output Total 1974 800 / 800
Balance -1974 -1974 -800 / -800
Physical Exam
Physical Exam
GEN: No distress, awake, alert, oriented x3. on supplemental O2
HEENT: supple, anicteric, mmm, EOMI
LUNGS: CTA B/L, no wheezes/rales
CV: Reg, S1/S2, 2/6 apex murmur
ABD: soft, BS+, NT/ND
EXT: No cyanosis, clubbing. Trace edema of B/L LE
NEURO: Gross non-focal
SKIN: Warm, pink, dry. No rash
[2023-08-26] MEDS: LASIX 20 MG PO (11:18)
[2023-08-26] MEDS: SODIUM BICARBONATE 325 MG PO ×2 (11:18→21:44)
[2023-08-26] MEDS: THERAGRAN 1 TABLET PO (11:18)
[2023-08-26] MEDS: PROTONIX 40 MG PO ×2 (11:19→21:43)
[2023-08-26] MEDS: PACERONE 200 MG PO ×2 (11:19→21:43)
[2023-08-26] MEDS: ELIQUIS 5 MG PO ×2 (11:19→21:43)
[2023-08-26] MEDS: COREG 3.125 MG PO (11:19)
[2023-08-26] MEDS: JARDIANCE 10 MG PO (11:19)
--- NOTE | 2023-08-26 12:18 | PN.CDI ---
CDI
- -
CDI:
Physician Documentation Request
Admit Date: 08/24/23 14:21
Dear Shruti Lazo,
Patient presented with CHF and atrial flutter.
Thuan provide further specificity regarding atrial flutter, such as:
Typical Atrial Flutter - Type I: Classic or common atrial flutter, Rate is 240-340 beats/min. Usually responds to atrial pacing.
Atypical Atrial Flutter - Type II: Less common and more unstable. Rate is 340-440 beats/min. Less responsive to atrial pacing.
Other - please specify
Use of terms such as suspected, likely, concern for, or probable (associated with a specific diagnosis that is being evaluated, monitored, or treated as if it exists) are acceptable and can be coded in the inpatient setting, when documented at the
time of discharge.
Thank you,
Nurys Monroy RN, BSN
CDI Specialist
tiger text
Please use your independent medical judgment in providing your response.
[2023-08-26] MEDS: STERILE WATER FOR INJECTION IV (13:21)
--- NOTE | 2023-08-26 14:45 | PTCARENOTE ---
Pt AAOx3 w/ no c/o CP or SOB. Pt's affect is flat & pt is appears anxious at times. Pt's BP continues to be low, newly ordered med Vasotec held due to BP of 82/67. Pt asymptomatic w/no dizziness or SOB. Pt scheduled for cardiac MRI & pt very anxious
after finding out he is unable to be pre-medicated w/PO Ativan PRN prior to the test. Pt started w/nausea & vomited a small amount of his lunch before going to MRI. Emotional support provided & pt agreeable to getting the MRI at this time. Plan of
care ongoing.
[2023-08-26] MEDS: COMPAZINE 5 MG IV (17:42)
[2023-08-26] MEDS: FLUSH (NSS) 2 FLUSH IV (17:43)
[2023-08-26] MEDS: ProAmatine PO (18:00)
[2023-08-26] MEDS: SODIUM BICARBONATE PO (18:54)
--- NOTE | 2023-08-26 21:30 | PTCARENOTE ---
Continuation of care of this pt. Pt's assessment unchanged from this RN's earlier assessment. Pt's BP continues to be low at 103/73. Pt's HR in the 80's & pt continues to be in SR on telemetry monitoring. Pt unable to take 1800 midodrine due to N&V
upon return from Cardiac MRI at 1735. Pt given PRN IV Compazine as ordered w/relief of vomiting, however pt remained nauseous. Pt able to take PO meds after 2100 when nausea improved some & he was able to eat a plain yogurt & sips some clear liqs.
Pt also c/o 'gasping episodes' post MRI & this RN administered PRN PO Ativan as ordered. Pt reported the 'gasping episodes are slowing down'. Pt w/call victoria within reach & plan of care ongoing.
[2023-08-26] MEDS: COREG PO (21:43)
[2023-08-27] VITALS (21 sets, daily range): BP systolic 86–124; BP diastolic 52–88
[2023-08-27] MEDS: XOPENEX 1.25 MG INHALANT SOLUTION INH (00:05)
[2023-08-27] MEDS: ATIVAN 0.5 MG PO ×3 (00:48→18:18)
[2023-08-27] MEDS: COMPAZINE 5 MG IV ×2 (04:00→13:17)
--- NOTE | 2023-08-27 05:15 | PTCARENOTE ---
Pt. complained of SOB at midnight; appeared anxious and was tachypneic, pulse ox 95% on 2L, lungs CTA. GUN STOCK MAKER notified, Xopenex treatment given which pt. stated was helpful. Requested Ativan for anxiety, PO dose given and pt. fell asleep. When
woken for vitals this morning he complained of nausea, Compazine given and then pt. fell asleep again. NSR on the monitor, current HR 84.
[2023-08-27 05:21] LABS: Hematocrit 33.9 % (39.0-52.0); Mean Corp Hgb Conc. 35.4 g/dL (33.0-37.0); Mean Corpuscular Hgb 31.4 pg (27.0-31.0); Mean Corpuscular Volume 88.7 fL (80.0-94.0); Mean Platelet Volume 11.2 fL (7.4-10.4); Platelet Count 235 10^3/uL (130-400); Red Blood Cell Count 3.82 10^6/uL (4.70-6.10); White Blood Cell Count 7.1 10^3/uL (4.8-10.8)
[2023-08-27 05:51] LABS: Blood Urea Nitrogen 43 mg/dl (9-20); Calcium 9.2 mg/dl (8.4-10.2); Carbon Dioxide 19 mmol/L (22-30); Chloride 101 mmol/L (98-107); Estimated Creatinine Clearance 62 ml/min; Glucose 146 mg/dl (70-99); Magnesium 2.3 mg/dl (1.6-2.3); Phosphorus 5.1 mg/dl (2.5-4.5); Sodium 136 mmol/L (135-145); eGFR > 60.00
--- NOTE | 2023-08-27 07:15 | W.PN.HOSP.TC ---
Today's Communication/Plan
-
transfer to [facility] when bed available, accepting physician Dr Sahra Koo
Milrinone gtt CVICU care as per cardiology
cont anticoagulation
bicarb supplementation
prn ativan antiemetic
Assessment / Plan
Assessment / Plan
Physical Exam
General: No pallor, cyanosis, or jaundice.
HEENT: Throat clear. PERRLA Normocephalic atraumatic
NECK: Supple. No JVD Carotid Bruits
RESPIRATORY: Lungs clear to auscultation. No crackles wheezes stridor
CVS: Sinus tachy
ABDOMEN: Soft, non-tender. No distension. BS+/normal.
EXTREMITIES: No peripheral cyanosis or edema.
LEAD SUSTAINABILITY SPECIALIST: AOx3
IMPRESSION:
63M MATTY CPAP history rheumatoid arthritis DVT Eliquis hypertension HFrEF recent hospitalization in July septic shock secondary to pneumonia with associate acute on chronic HFrEF presents with progressive cough past few days associated with
worsening shortness of breath.� Found to be in afib/aflutter RVR.� Denied chest pain palpitations fever sneezing nausea vomiting constipation.� Chest XR concerning for new onset right lower lobe pneumonia.� Afebrile no leukocytosis.� Procalcitonin
negative. Empiric abx soon discontinued. Patient denies association coughing with meals.� BNP significantly elevated 6070 from prior 2590.� Lungs however clear to auscultation.� No significant edema lower ext's.� Patient denies any significant
weight gain and reports compliance with medications (Correction to prior documentation, mild increase in weight 76.289 from discharge to 77.111kg on presentation).�
PLAN:
#New Onset Afib/Aflutter RVR
#CXR concerning for new onset mild right lower lobe pneumonia more likely residual effect from past completed pneumonia treatment. Procalcitonin neg, unlikely active pna infection at this time.
#Hypotension/Low Normotensive
IVU admit
empiric abx ceftriaxone azithromcyin discontinued
blood cultures NGTD
Cardio eval appreciated Cardizem gtt completed, started on Amiodarone, cont
cont home Eliquis
midodrine prn, scheduled midodrine started with holding parameters, cont
Planned for Cardioversion 08/24 however patient spontaneously converted to NSR, cardioversion since canceled
#nausea/vomiting
possible amiodarone side effect vs uncontrolled heart failure vs pleural effusion
prn compazine, Tigan
#Possible anxiety contributing to episodic feelings shortness of breath chest tightness
#also possible contributing to nausea
ativan prn
#Acute on Chronic HFrEF
BNP increased
diuresis as per cardio
daily weights
I&O
cont home Jardiance, Coreg with holding parameters
Cardio eval appreciated unlikely to tolerate Entresto, low dose enalapril started
Cardiac MRI noted
-severe diffuse infiltrative myocardial disease possible differential cardiac sarcoidosis, amyloidosis, myocardial fibrosis, and less likely myocarditis
-severe impaired LV systolic Function
-severe mitral regurgitation
-moderate sized b/l pleural effusions (IR consulted for thoracentesis however placed on hold in favor of RHC as per Cardiology)
In lieu of degree of illness and infiltrative disorder as noted above, cardiology discussed with patient and his , recommending transfer to [facility] for endomyocardial biopsy, patient consenting to transfer, [facility] accepted under the care of Dr Bocanegra
[place]
08/26 Eliquis transitioned to Hep gtt RHC was performed showing significant reduced cardiac output and cardiac index warranting start on milrinone and transfer to CVICU as per cardio- while awaiting Bed availability [facility] transfer
Metabolic Acidosis mild
low dose Bicarb PO supplementation started, continue
Mild QT prolongation
-minimize QT prolonging agent use as possible
#Rheumatoid Arthritis
Continue Home Leflunomide
#MATTY
continue home CPAP
#Hx DVT
cont home Eliquis
GI ppx Protonix
Full Code
Discussed with patient, patient's , and cardiology
I spent a total of� 59� � minutes with the patient or on the floor. More than 50% of this time involved counseling and coordination of care.
Anticipated Discharge: 24 - 48 hours
Subjective/Interval History
-
Date of Service: August 27, 2023
remains intermittently nauseous anxious.
Objective Data
-
Labs:
Laboratory Results
08/27/23
04:54
WBC 7.1
Hgb 12.0 L
Hct 33.9 L
Plt Count 235
Sodium 136
Potassium 4.0
Chloride 101
Carbon Dioxide 19 L
BUN 43 H
Creatinine 1.3
Glucose 146 H
Calcium 9.2
Vital Signs:
Vital Signs
Temp Pulse Resp BP Pulse Ox
97.4 F 92 20 110/88 98
08/27/23 03:57 08/27/23 04:00 08/27/23 03:57 08/27/23 03:56 08/27/23 03:57
I&O
08/26/23 08/27/23 08/28/23
06:59 06:59 06:59
Intake Total 1200 / 1200
Output Total 800 / 800 1500 / 1500
Balance -800 / -800 -300 / -300
[2023-08-27] MEDS: THERAGRAN 1 TABLET PO (08:47)
[2023-08-27] MEDS: ELIQUIS 5 MG PO (08:47)
[2023-08-27] MEDS: JARDIANCE 10 MG PO (08:48)
[2023-08-27] MEDS: PACERONE 200 MG PO (08:48)
[2023-08-27] MEDS: COREG 3.125 MG PO ×2 (08:48→20:06)
[2023-08-27] MEDS: SODIUM BICARBONATE 325 MG PO ×3 (08:49→21:07)
[2023-08-27] MEDS: PROTONIX 40 MG PO ×2 (08:49→20:06)
[2023-08-27] MEDS: ProAmatine 5 MG PO (09:00)
[2023-08-27] MEDS: LASIX PO (10:12)
--- NOTE | 2023-08-27 11:36 | W.PN.CARDCBS ---
Addendum entered and electronically signed by Shruti Lazo PA-C 08/27/23 13:48:
.
Addendum entered and electronically signed by Patience Ang MD 08/27/23 12:53:
I saw and examined the patient.
The Director Medical Economics's note was reviewed and I agree with the note.
Comment: He was originally seen in our office 05/2023 and workup began for new cardiomyopathy.
He then was admitted for sepsis 07/2023 was critically ill.
He now is readmitted for heart failure with reduced ejection fraction in the setting of atrial flutter and moderate to severe mitral regurgitation.
He spontaneously converted to sinus rhythm during this admission and remains on oral anticoagulation and amiodarone which is new. (Unclear of the contribution of atrial flutter to heart failure/cardiomyopathy)
He is having some mild nausea and we have reduced dose.
Nonobstructive coronary artery disease noted by recent cardiac cath.
We were able to move up and obtain cardiac MRI yesterday which revealed suggestion of severe diffuse infiltrative myocardial disease.
His blood pressure remains on the low side. Difficulty tolerating guideline directed medical therapy. Midodrine as needed.
Short of breath with exertion. Some mild, mild to moderate pleural effusions noted.
Given degree of illness and infiltrative disorder would not be unreasonable to transfer to tertiary care facility.
Would benefit likely from endomyocardial biopsy. Would benefit from right heart catheterization.
-Eventual consider atrial flutter ablation. Also had been waiting 3 months to see if recovery of cardiomyopathy before dual-chamber ICD. Will need to reconsider this timing pending diagnosis.
-He does believe he has had some anxiety since his admission for sepsis 07/2023. Ativan has helped this admission. Psych evaluation given all he has been going through recently.
We will continue to update patient and his regarding status.
Original Note:
Today's Communication / Plan
-
decrease amio to 200mg daily with ongoing nausea
cardiac MRI results reviewed with patient//hospitalist
needs cardiac biopsy
for IRAD consult, chest US to eval for B/L thora
midodrine PRN
psych eval
Impression / Plan
-
PCP: Dr. Myers
Cardiology: Dr. Ramsey
Impression:
Presented 08/24/2023 with palpitations, tachycardia and shortness of breath
Atrial flutter with rapid ventricular response
Acute on chronic heart failure with reduced ejection fraction, proBNP
Concern for pneumonia
Acute hypoxic respiratory insufficiency
Hypotension
Recent admission 07/24/2023 for Sepsis and shock/pneumonia
Chronic HFrEF
Nonischemic CM EF 25-30% by echo 06/12/23 and 35% (25% visual) by repeat echo 08/04/23
Moderate to severe mitral regurgitation
Normal coronary arteries by cath 06/19/23
HTN
RA
h/o DVT in 2014 and again 04/2023
Chronic Eliquis OAC
MATTY on CPAP
Echo 06/12/23:�EF 25-30%, mod MR, mild TR with PAP 25-30 mmHg
Echo 08/04/23: EF 35% quantitatively but 25% by visual estimate, mod to sev MR
Cardiac cath May 2023:Non-obstructive CAD. Wedge was 29.
Plan:
-He continues with shortness of breath and nausea. he is very sick from a cardiac standpoint
-Fortunately remains in sinus rhythm overnight. [facility] and spontaneously converted.
-will reduce amiodarone dose further to 200mg daily given ongoing nausea. QTc stable, follow. IV zofran x1.
-remains on eliquis
-discussed with hospitalist, patient, and at bedside results of cardiac MRI. with evidence of severe diffuse infiltrative myocardial disease - differential includes amyloid, sarcoid, myocardial fibrosis or less likely myocarditis. also with
severe MR. discussed next step would be for myocardial biopsy. will attempt to arrange evaluation with Dr. Koo at [facility] as soon as able. if continues to do poorly may require in-hospital transfer
-cardiac MRI also with B/L pleural effusions. IRAD consult for chest US, evaluate for thoracentesis. would complete fluid analysis. on po lasix 20mg daily
-remains hypotensive, midodrine PRN ordered.
-Continue Coreg, Jardiance. Hypotension has previously limited further uptitration of cardiomyopathy regimen. low dose enalapril has not been given due to hypotension since ordered.
-Would consider outpatient EP eval for flutter ablation
-He does believe he has had some anxiety since his admission for sepsis 07/2023. ativan has helped this admission. psych evaluation
-he and appear somewhat overwhelmed with all of this, understandably. answered questions as able and provided support.
-d/w nursing
PREADMIT DATA:
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
and pneumonia who presents 08/24/2023 with acute onset shortness of breath, palpitations and tachycardia. Patient reports he had been doing well with stable weights and improving shortness of breath. He started cardiac rehab and was participating
without issues. However over the last several days he started to note intermittent episodes of palpitations associated with tachycardia and shortness of breath. He was able to complete cardiac rehab this morning but felt off. Upon getting home he
noted his heart rate was elevated and had worsening shortness of breath that persisted after several minutes prompting him to come to the emergency department. On admission he was noted to be in hypotensive in atrial fibrillation/flutter with rapid
ventricular response. proBNP was 6070. Chest x-ray shows new findings suggesting right lower lobe pneumonia. and he was placed on IV diltiazem drip.
At time of this evaluation patient continues to feel mildly short of breath with elevated heart rates and palpitations. He is currently wearing 2 L of oxygen via nasal cannula. He reports his weight has been relatively stable at home between 170
and 172 pounds. He denies lower extremity edema. He does feel his belly may be more bloated. He denies chest pain.
Progress Note - Beekeeper Farmer
Subjective
Date of Service: August 27, 2023
remains with SOB and nausea
Objective
Labs:
08/27/23 04:54
08/27/23 04:54
Labs
Hgb 12.0 g/dL (13.0-18.0) L 08/27/23 04:54
Hct 33.9 % (39.0-52.0) L 08/27/23 04:54
Plt Count 235 10^3/uL (130-400) 08/27/23 04:54
PT 17.0 Sec (11.4-14.6) H 08/24/23 10:43
INR 1.40 08/24/23 10:43
APTT 32.6 Sec (23.4-35.0) 08/24/23 10:43
Sodium 136 mmol/L (135-145) 08/27/23 04:54
Potassium 4.0 mmol/L (3.5-5.1) 08/27/23 04:54
BUN 43 mg/dl (9-20) H 08/27/23 04:54
Creatinine 1.3 mg/dL (0.7-1.3) 08/27/23 04:54
Glucose 146 mg/dl (70-99) H 08/27/23 04:54
Troponins
08/25/23
04:06
Troponin I 0.032
Vital Signs and I&O:
Vital Signs
Temp Pulse Resp BP Pulse Ox
97.7 F 93 20 86/65 99
08/27/23 07:50 08/27/23 10:12 08/27/23 07:50 08/27/23 10:12 08/27/23 07:50
Vital Signs
Temp Pulse Resp BP Pulse Ox
97.7 F 93 20 86/65 99
08/27/23 07:50 08/27/23 10:12 08/27/23 07:50 08/27/23 10:12 08/27/23 07:50
Intake & Output
08/25/23 08/26/23 08/27/23 08/28/23
07:59 07:59 07:59 07:59
Intake Total 1200 / 1200
Output Total 1974 800 / 800 1500 / 1500
Balance -1975 / -1975 -800 / -800 -300 / -300
Physical Exam
Physical Exam
GEN: No distress, awake, alert, oriented x3. appears anxious. on supplemental O2
HEENT: supple, anicteric, mmm, EOMI
LUNGS: no audible wheezes
CV: Reg, S1/S2
EXT: No cyanosis, clubbing. Trace edema of B/L LE
NEURO: Gross non-focal
SKIN: Warm, pink, dry. No rash
[2023-08-27] MEDS: ZOFRAN 4 MG IV (12:12)
--- NOTE | 2023-08-27 13:01 | CM ---
Addendum entered by Katelin Gibbs 08/27/23 14:11:
Mr. Richard maybe transferred to [facility] under the services of Dr. Sahra Koo. Faxed demographic sheet to [facility] Transfer [facility]. [facility] states r=they are running high census. WIll need ALS ambulance for transfer. Awaiting bed availability at [facility]. The
discharge plan is to go to [facility] when bed available. Telephone call to [facility] to check on coverage for Ambulance. He has coverage at 100% without a deductible.
Original Note:
Reviewed chart. Prior to admission he resides with his spouse in a three story home with six steps to enter. He has a full flight of steps to get to bedroom/full bathroom. He has a powder room on the first floor. Prior to admission he was
independent with ambulation and adls. He has a CPAP Machine at home and no other DME in the home. He has a prescription plan and uses [facility]. Medical work-up in progress. The discharge plan is to return home with his spouse when medically
stable.
--- NOTE | 2023-08-27 13:13 | W.PN.UPDATE ---
Update Note
Progress Note Update
Patient to be transferred to [facility] when bed available for endomyocardial biopsy. Accepting physician Dr. Sahra Koo. Hold on thoracentesis for now. Currently retching, for ativan IV x1. may need to consider RHC here prior to transfer as may require
initiation of inotrope for low flow state. eliquis to be transitioned to IV heparin. d/w hospitalist, nursing
--- NOTE | 2023-08-27 14:51 | W.PN.UPDATE ---
Update Note
Progress Note Update
spoke to ms hebert via tiger text. the chart was reviewed. patient is likely going to [facility] for cardiac bx in the next several days. this consult was ordered bc anxiety . i suggested to ms hebert that given the patient's complicated list of
medications some of which have interactions traditional antidepressants would just use ativan for now and reassess re need for antidepressants as his medical condition becomes more stabilized. it is possible as his medical condition improves and a
rx plan formulated his anxiety will dissipate on its own. we agreed that formal consult would be canceled.
--- NOTE | 2023-08-27 16:00 | PTCARENOTE ---
Received pt AOx3, c/o anxiety this morning, 0.5mg PO Ativan given w/ good result. NSR on monitor 80's-90's. Increased SOB noted w/ exertion while walking the halls, PA instructed pt to limit activity at this time and remain in room, no desating
observed, pt becoming tachypneic at times at rest, on and off 2 L NC throught the day, sating 93-100%, LS diminished. Intermittent nausea continues w/ poor appetite, 1 time dose of 4mg IV Zofran given this afternoon w/ no relief. 5mg IV Compazine w/
relief of nausea. Decision made for R heart cath, report called and pt sent. updated by Cardiac PA, all questions answered.
--- NOTE | 2023-08-27 17:41 | ITS.CL.CATH ---
Dairy Worker - Catheterization
Cardiac Catheterization
Procedure Report:
RIGHT HEART CATHETERIZATION
Date of Procedure: August 27, 2023
Referring: Dr. Patience Ang
INDICATION: Heart failure with low output state.
Hemodynamics (mmHg):
RA (m) : 19
RV (s/d,m) : 70/16, 25
PA (s/d, m) : 72/38, 52
PCWP (m) : 36 with V waves to 55 mmHg
Ao cuff pressure: 121/90, 100
Cardiac Output : 3.4 L/min
Cardiac Index : 1.7 L/min/m-2
Systemic vascular resistance: 23.8 Wood units or 1906 [id number](-5)
Pulmonary vascular resistance: 4.7 Wood units or 376 [id number](-5)
RADIATION SUMMARY: Fluoro Time (min): 1.8, Dose (mGy): 15, DAP (Gy.cm2) : 2.2
CONCLUSION:
1. Elevated right and left ventricular filling pressures with significantly reduced cardiac output and cardiac index
2. Likely significant mitral regurgitation with very large V wave
Copy to: Dr. Patience Ang
[2023-08-27] MEDS: PRIMACOR 20 MG 100 IV (18:18)
--- NOTE | 2023-08-27 18:28 | PTCARENOTE ---
pt report received from CCL, pt arrived to CVICU. oriented, anxious. SR/ST on the monitor, occasional PACs/PVCs. HR 90-100s. SBP 90s. PAP 60s/20s. CVP ~11. CI 1.6. pt denies CP. pt on 2LNC, 99% POX. pt denies n/v. dinner ordered. RIDanelle cordevelyne/hansel in
place, PAP and CVP zeroed and calibrated. PIV x2. milrinone gtt started as ordered. updated. pt belongings brought over by [facility].
--- NOTE | 2023-08-27 19:00 | PTCARENOTE ---
report received from previous RN, walking rounds done. pt in bed, AAOx4. pt denies any pain. SR with PACs on monitor, HR 90's. B/L radial and DP pulses palpable. heart tones clear. RIJ cordis/swan intact w KVO infusing. Milrinone gtt infusing @
0.3mcg. CI 1.67. PAPs ~50's/20's. CVP ~12. B/L breath sounds present. POX 98-100% on 2LNC. see worklist for full assessment, VS, and interventions. pt resting between care.
--- NOTE | 2023-08-27 20:00 | PTCARENOTE ---
PTT drawn and sent. Heparin gtt started @ 900 units/hr per orders.
[2023-08-27] MEDS: HEPARIN 25000 UNITS/250 ML IV (20:16)
[2023-08-27 20:36] LABS: APTT 29.5 Sec (23.4-35.0)
--- NOTE | 2023-08-27 23:00 | PTCARENOTE ---
no acute changes in assessment, pt VSS. SR 80's-90's. BP normotensive. CI 1.6-1.7. CVP ~18. PAP ~50's-60's/10's. POX 98-100% on 2LNC. pt sleeping between care.
[2023-08-28] VITALS (20 sets, daily range): BP systolic 89–115; BP diastolic 53–91; BMI 21.0
[2023-08-28 02:41] LABS: Hematocrit 29.4 % (39.0-52.0); Hemoglobin 10.3 g/dL (13.0-18.0); Mean Corpuscular Hgb 31.7 pg (27.0-31.0); Mean Corpuscular Volume 90.5 fL (80.0-94.0); Mean Platelet Volume 11.8 fL (7.4-10.4); Platelet Count 194 10^3/uL (130-400); Red Blood Cell Count 3.25 10^6/uL (4.70-6.10); Red Cell Dist. Width 12.8 % (11.5-14.5); White Blood Cell Count 5.8 10^3/uL (4.8-10.8)
--- NOTE | 2023-08-28 03:00 | PTCARENOTE ---
pt VSS, no changes in assessment. SR 80's. CI 1.8. Primacor maintained @ 0.3mcg. Heparin gtt maintained per protocol. POX 98% on 2LNC. CVP ~16. PAP ~50's/10's. AM labs drawn and sent. pt sleeping between care.
[2023-08-28 03:08] LABS: Blood Urea Nitrogen 43 mg/dl (9-20); Calcium 8.5 mg/dl (8.4-10.2); Carbon Dioxide 24 mmol/L (22-30); Chloride 105 mmol/L (98-107); Estimated Creatinine Clearance 73 ml/min; Glucose 97 mg/dl (70-99); Magnesium 2.4 mg/dl (1.6-2.3); Phosphorus 4.4 mg/dl (2.5-4.5); Potassium 3.3 mmol/L (3.5-5.1); Sodium 136 mmol/L (135-145); eGFR > 60.00
[2023-08-28 03:12] LABS: APTT > 200 Sec (23.4-35.0)
[2023-08-28 03:55] LABS: APTT 87.9 Sec (23.4-35.0)
[2023-08-28] MEDS: KCL 100 IV (04:09)
--- NOTE | 2023-08-28 07:15 | W.PN.HOSP.TC ---
Today's Communication/Plan
-
transfer to [facility] when bed available, accepting physician Dr Sahra Koo
Milrinone gtt CVICU care as per cardiology
cont anticoagulation
bicarb supplementation completed
prn ativan antiemetic
Assessment / Plan
Assessment / Plan
Physical Exam
General: No pallor, cyanosis, or jaundice.
HEENT: Throat clear. PERRLA Normocephalic atraumatic
NECK: Supple. No JVD Carotid Bruits
RESPIRATORY: Lungs clear to auscultation. No crackles wheezes stridor
CVS: Sinus tachy
ABDOMEN: Soft, non-tender. No distension. BS+/normal.
EXTREMITIES: No peripheral cyanosis or edema.
[employer]: AOx3
IMPRESSION:
63M MATTY CPAP history rheumatoid arthritis DVT Eliquis hypertension HFrEF recent hospitalization in July septic shock secondary to pneumonia with associate acute on chronic HFrEF presents with progressive cough past few days associated with
worsening shortness of breath.� Found to be in afib/aflutter RVR.� Denied chest pain palpitations fever sneezing nausea vomiting constipation.� Chest XR concerning for new onset right lower lobe pneumonia.� Afebrile no leukocytosis.� Procalcitonin
negative. Empiric abx soon discontinued. Patient denies association coughing with meals.� BNP significantly elevated 6070 from prior 2590.� Lungs however clear to auscultation.� No significant edema lower ext's.� Patient denies any significant
weight gain and reports compliance with medications (Correction to prior documentation, mild increase in weight 76.289 from discharge to 77.111kg on presentation).�
PLAN:
#New Onset Afib/Aflutter RVR
#CXR concerning for new onset mild right lower lobe pneumonia more likely residual effect from past completed pneumonia treatment. Procalcitonin neg, unlikely active pna infection at this time.
#Hypotension/Low Normotensive
IVU admit
empiric abx ceftriaxone azithromcyin discontinued
blood cultures NGTD
Cardio eval appreciated Cardizem gtt completed, started on Amiodarone with eventual subsequent spontaneous conversion to NSR
home Eliquis converted to hep gtt planned for cardiac biopsy as below
midodrine prn
#nausea/vomiting
possible amiodarone side effect vs uncontrolled heart failure vs pleural effusion
prn compazine, Tigan
improved since start milrinone gtt
#Possible anxiety contributing to episodic feelings shortness of breath chest tightness
#also possible contributing to nausea
ativan prn
#Acute on Chronic HFrEF
BNP increased
diuresis as per cardio
daily weights
I&O
cont home Jardiance, Coreg with holding parameters
Cardio eval appreciated unlikely to tolerate Entresto, low dose enalapril attempted but discontinued, never received due to low pressures holding parameters
Cardiac MRI noted
-severe diffuse infiltrative myocardial disease possible differential cardiac sarcoidosis, amyloidosis, myocardial fibrosis, and less likely myocarditis
-severe impaired LV systolic Function
-severe mitral regurgitation
-moderate sized b/l pleural effusions (IR consulted for thoracentesis however placed on hold in favor of RHC as per Cardiology)
In lieu of degree of illness and infiltrative disorder as noted above, cardiology discussed with patient and his , recommending transfer to [facility] for endomyocardial biopsy, patient consenting to transfer, [facility] accepted under the care of Dr Bocanegra
[place]
08/26 Eliquis transitioned to Hep gtt RHC was performed showing significant reduced cardiac output and cardiac index warranting start on milrinone and transfer to CVICU as per cardio- while awaiting Bed availability [facility] transfer
Metabolic Acidosis mild
low dose Bicarb PO supplementation started
acidosis eventually resolved, bicarb supplementation since completed
Mild QT prolongation
-minimize QT prolonging agent use as possible
#Rheumatoid Arthritis
Continue Home Leflunomide
#MATTY
continue home CPAP
#Hx DVT
cont home Eliquis
GI ppx Protonix
Full Code
I spent a total of� 58� � minutes with the patient or on the floor. More than 50% of this time involved counseling and coordination of care.
Anticipated Discharge: 24 - 48 hours
Subjective/Interval History
-
Date of Service: August 28, 2023
Seen and examined at bedside no acute distress appears comfortable at this time. Reports improvement in nausea
Objective Data
-
Labs:
Laboratory Results
08/27/23 08/28/23 08/28/23
20:16 02:15 03:28
WBC 5.8
Hgb 10.3 L
Hct 29.4 L
Plt Count 194
APTT 29.5 > 200 H* 87.9 H
Sodium 136
Potassium 3.3 L
Chloride 105
Carbon Dioxide 24
BUN 43 H
Creatinine 1.1
Glucose 97
Calcium 8.5
08/28/23
09:00
WBC
Hgb
Hct
Plt Count
APTT Pending
Sodium
Potassium
Chloride
Carbon Dioxide
BUN
Creatinine
Glucose
Calcium
Vital Signs:
Vital Signs
Temp Pulse Resp BP Pulse Ox
98.4 F 92 23 101/83 93
08/28/23 06:00 08/28/23 05:45 08/28/23 05:45 08/28/23 05:05 08/28/23 05:45
I&O
08/27/23 08/28/23 08/29/23
06:59 06:59 06:59
Intake Total 1200 / 1200 278.4 / 278.4
Output Total 1500 / 1500 500 / 500
Balance -300 / -300 -221.6 / -221.6
--- NOTE | 2023-08-28 08:00 | PTCARENOTE ---
resumed care from previous RN, walking rounds done. pt in bed, AAOx4. VSS. pt denies any pain. Anxious. SR with PACs on monitor, HR 80-90's. + pulses Trace edema. nausea and dry heaving. Medicated as ordered with good relief. Urinating clear yellow
urine. Milrinone gtt infusing @ 0.3mcg. RIJ cordis/kennyan intact w KVO infusing. Hep gtt infusing at ordered rate. will continue to monitor.
[2023-08-28] MEDS: PRIMACOR 20 MG 100 IV ×2 (09:02→21:21)
[2023-08-28] MEDS: COMPAZINE 5 MG IV (09:15)
[2023-08-28] MEDS: COREG 3.125 MG PO ×2 (09:17→20:54)
[2023-08-28] MEDS: PROTONIX 40 MG PO ×2 (09:18→20:54)
[2023-08-28] MEDS: SODIUM BICARBONATE 325 MG PO ×3 (09:18→21:51)
[2023-08-28] MEDS: THERAGRAN 1 TABLET PO (09:18)
[2023-08-28] MEDS: LASIX 20 MG PO (09:19)
[2023-08-28] MEDS: JARDIANCE 10 MG PO (09:19)
[2023-08-28] MEDS: PACERONE 200 MG PO (09:19)
--- NOTE | 2023-08-28 09:35 | W.PN.CARDCBS ---
Addendum entered and electronically signed by Levar Holly MD 08/28/23 14:50:
I saw and examined the patient.
The OR NURSE MANAGER or PA's note was reviewed and I agree with the note.
Comment: General: Appears chronically ill
Neck: Supple, no JVD, HJR, carotids +2 B/L, no bruits bilaterally.
Heart: Non displaced PMI, RRR, no murmurs, No S3, S4, no rubs.
Lungs: Scattered rhonchi
Extremities: No clubbing, cyanosis or edema bilaterally.
Neuro: Grossly nonfocal, awake, alert and oriented x3.
He denies complaint but remains critically ill. Remains on milrinone. Will try low-dose IV Lasix today as blood pressure is borderline. Await transfer to [place] for myocardial biopsy given infiltrative cardiomyopathy noted on MRI.
Original Note:
Today's Communication / Plan
-
IV lasix 20mg
continue milrinone @0.3
replete K
amio, IV heparin, coreg
awaiting bed availability for transfer to [place] for myocardial biopsy
Impression / Plan
-
PCP: Dr. Myers
Cardiology: Dr. Ramsey
Impression:
Presented 08/24/2023 with palpitations, tachycardia and shortness of breath
Atrial flutter with rapid ventricular response
Acute on chronic heart failure with reduced ejection fraction, proBNP
Concern for pneumonia
Acute hypoxic respiratory insufficiency
Hypotension
Recent admission 07/24/2023 for Sepsis and shock/pneumonia
Chronic HFrEF
Nonischemic CM EF 25-30% by echo 06/12/23 and 35% (25% visual) by repeat echo 08/04/23
Moderate to severe mitral regurgitation
Normal coronary arteries by cath 06/19/23
HTN
RA
h/o DVT in 2014 and again 04/2023
Chronic Eliquis OAC
MATTY on CPAP
Echo 06/12/23:�EF 25-30%, mod MR, mild TR with PAP 25-30 mmHg
Echo 08/04/23: EF 35% quantitatively but 25% by visual estimate, mod to sev MR
Cardiac cath May 2023:Non-obstructive CAD. Wedge was 29.
Plan:
-he remains very sick from cardiac standpoint
-continues with dry heaving at times
-s/p RHC yesterday with CO 3.4, CI 1.7, SVR 1900. with wedge of 36.
-started on milrinone @0.3, continue. CI improved to 2.06
-cardiac MRI also with B/L pleural effusions. hypotension has limited diuresis. will hold po lasix and place on IV lasix 20mg daily. holding on thoracenteses at present, however may consider at [place].
-replete K
-continue supp O2, wean as able
-he presented in new rapid aflutter and spontaneously converted. remains in SR on review of tele. continue amio 200mg daily
-OP eliquis has been transitioned to IV heparin. he does have history of recurrent DVT in addition.
-awaiting bed availability at [place]. accepting physician Dr. Sahra Koo. cardiac MRI with evidence of severe diffuse infiltrative myocardial disease. needs myocardial biopsy
-EF 25% visually by echo 08/04/24. continue coreg, jardiance as BP allows. midodrine PRN ordered for hypotension
-Would consider outpatient EP eval for flutter ablation
-He does believe he has had some anxiety since his admission for sepsis 07/2023. ativan has helped this admission.
-of note, he recently had skin biopsy completed through Dr. Salmon (derm). sutures due to be removed Thursday08/31/23. awaiting biopsy results.
-d/w nursing and at bedside
PREADMIT DATA:
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
and pneumonia who presents 08/24/2023 with acute onset shortness of breath, palpitations and tachycardia. Patient reports he had been doing well with stable weights and improving shortness of breath. He started cardiac rehab and was participating
without issues. However over the last several days he started to note intermittent episodes of palpitations associated with tachycardia and shortness of breath. He was able to complete cardiac rehab this morning but felt off. Upon getting home he
noted his heart rate was elevated and had worsening shortness of breath that persisted after several minutes prompting him to come to the emergency department. On admission he was noted to be in hypotensive in atrial fibrillation/flutter with rapid
ventricular response. proBNP was 6070. Chest x-ray shows new findings suggesting right lower lobe pneumonia. and he was placed on IV diltiazem drip.
At time of this evaluation patient continues to feel mildly short of breath with elevated heart rates and palpitations. He is currently wearing 2 L of oxygen via nasal cannula. He reports his weight has been relatively stable at home between 170
and 172 pounds. He denies lower extremity edema. He does feel his belly may be more bloated. He denies chest pain.
Progress Note - Development Coordinator
Subjective
Date of Service: August 28, 2023
remains with nausea, dry heaving. breathing improving
Objective
Labs:
08/28/23 02:15
08/28/23 02:15
Labs
Hgb 10.3 g/dL (13.0-18.0) L 08/28/23 02:15
Hct 29.4 % (39.0-52.0) L 08/28/23 02:15
Plt Count 194 10^3/uL (130-400) 08/28/23 02:15
PT 17.0 Sec (11.4-14.6) H 08/24/23 10:43
INR 1.40 08/24/23 10:43
APTT 87.9 Sec (23.4-35.0) H 08/28/23 03:28
Sodium 136 mmol/L (135-145) 08/28/23 02:15
Potassium 3.3 mmol/L (3.5-5.1) L 08/28/23 02:15
BUN 43 mg/dl (9-20) H 08/28/23 02:15
Creatinine 1.1 mg/dL (0.7-1.3) 08/28/23 02:15
Glucose 97 mg/dl (70-99) 08/28/23 02:15
Vital Signs and I&O:
Vital Signs
Temp Pulse Resp BP Pulse Ox
98.4 F 104 27 105/83 97
08/28/23 06:00 08/28/23 09:17 08/28/23 09:00 08/28/23 09:17 08/28/23 08:45
Vital Signs
Temp Pulse Resp BP Pulse Ox
98.4 F 104 27 105/83 97
08/28/23 06:00 08/28/23 09:17 08/28/23 09:00 08/28/23 09:17 08/28/23 08:45
Intake & Output
08/26/23 08/27/23 08/28/23 08/29/23
07:59 07:59 07:59 07:59
Intake Total 1200 / 1200 278.4 / 278.4
Output Total 800 / 800 1500 / 1500 500 / 500
Balance -800 / -800 -300 / -300 -221.6 / -221.6
Physical Exam
Physical Exam
GEN: No distress, awake, alert, oriented x3. ill appearing. on supp O2
HEENT: supple, anicteric, mmm, eomi
LUNGS: decreased BS B/L, no wheezes/rales
CV: Reg, S1/S2, 2/6 murmur
ABD: soft, BS+, NT/ND
EXT: No cyanosis, clubbing, edema
NEURO: Gross non-focal
SKIN: Warm, pink, dry. No rash. two sutures on L mid back
[2023-08-28 10:38] LABS: APTT > 200 Sec (23.4-35.0)
[2023-08-28] MEDS: KCL 160 MEQ IV (10:40)
[2023-08-28] MEDS: LASIX 20 MG IV (10:40)
[2023-08-28 11:07] LABS: APTT 38.8 Sec (23.4-35.0)
--- NOTE | 2023-08-28 12:00 | PTCARENOTE ---
No change in previous assessment. titrated hep gtt per protocol
--- NOTE | 2023-08-28 12:20 | CM ---
CM following for DC planning needs.
Plan for pt. to transfer to [facility] for higher level of care.
Call to [facility] transfer center [phone]; no beds avail at this time. They have CVICU # to call once bed opens up.
CM to cont. to follow.
[2023-08-28] MEDS: NON-FORMULARY ITEM 1 MG PO (15:45)
--- NOTE | 2023-08-28 17:05 | W.PN.UPDATE ---
Update Note
Progress Note Update
CTSP by RN for blood collecting in sterile Lincoln sheath covering. RN reports patient thrashing and pulling at Lincoln catheter. Lincoln cheyanne at skin site 34cm with dark blood collected inside sheath covering. Blood leaking from cordis connection site. Lincoln
removed and new sterile cap applied. Cordis flushed w/o further leaking. Cordis insertion site intact and not leaking. Dr. Villareal notified and will further assess.
[2023-08-28 17:27] LABS: APTT 138.6 Sec (23.4-35.0)
--- NOTE | 2023-08-28 21:00 | PTCARENOTE ---
Patient received resting in bed. Patient A+A+Ox3. No neurological deficits noted. No s/s of respiratory distress. O2 at 3L via NC. SaO2 96%. Sinus Rhythm. Heart rate 80-90's. Patient with no c/o chest pain, pressure or discomfort. Patient
continues on Milrinone gtt and IV Heparin gtt. Right I.J. Cordis intact and patent. Voiding without difficulty. No BM. No c/o pain or discomfort. Assessment as documented.
[2023-08-28] MEDS: HEPARIN 25000 UNITS/250 ML IV (21:22)
[2023-08-29] VITALS (28 sets, daily range): BP systolic 89–131; BP diastolic 55–99; BMI 20.6
[2023-08-29 00:15] LABS: APTT 38.3 Sec (23.4-35.0)
--- NOTE | 2023-08-29 00:15 | PTCARENOTE ---
PTT result 38.3. IV Heparin rate increased by 200 units/hr per protocol for Cardiac Tx/Acute Coronary. IV Heparin now infusing at 1100 units/hr (11 ml/hr). PTT 6hr after rate change. Potassium level 4.2. Patient resting in bed. No c/o pain or
discomfort. Assessment as documented.
[2023-08-29 00:22] LABS: Potassium 4.2 mmol/L (3.5-5.1)
--- NOTE | 2023-08-29 03:00 | PTCARENOTE ---
Patient resting in bed. Sleeping intermittently. Assessment/Interventions as documented.
--- NOTE | 2023-08-29 05:45 | PTCARENOTE ---
Patient A+A+Ox3. No neurological deficits noted. No c/o pain or discomfort. Patient given CHG bath. Hair washed using warm shampoo cap. Patient brushed his teeth. Stood at side of bed without difficulty. Standing scale weight 74.6 kg.
Patient stood at side of bed and performed leg exercises/stretching. No c/o headache, dizziness or lightheadedness. No c/o SOB. No c/o chest pain, pressure or discomfort. Linens changed. Patient back to bed. Assessment/Interventions as
documented.
[2023-08-29 06:28] LABS: Hematocrit 30.4 % (39.0-52.0); Hemoglobin 10.8 g/dL (13.0-18.0); Mean Corp Hgb Conc. 35.5 g/dL (33.0-37.0); Mean Corpuscular Hgb 31.8 pg (27.0-31.0); Mean Corpuscular Volume 89.4 fL (80.0-94.0); Mean Platelet Volume 10.9 fL (7.4-10.4); Platelet Count 223 10^3/uL (130-400); Red Cell Dist. Width 13.2 % (11.5-14.5); White Blood Cell Count 6.1 10^3/uL (4.8-10.8)
[2023-08-29 06:31] LABS: APTT 50.1 Sec (23.4-35.0)
[2023-08-29 07:12] LABS: Blood Urea Nitrogen 40 mg/dl (9-20); Calcium 8.6 mg/dl (8.4-10.2); Carbon Dioxide 24 mmol/L (22-30); Chloride 105 mmol/L (98-107); Estimated Creatinine Clearance 73 ml/min; Glucose 101 mg/dl (70-99); Magnesium 2.5 mg/dl (1.6-2.3); Potassium 3.9 mmol/L (3.5-5.1); Sodium 137 mmol/L (135-145); eGFR > 60.00
--- NOTE | 2023-08-29 08:00 | W.PN.HOSP.TC ---
Today's Communication/Plan
-
transfer to [place] when bed available, accepting physician Dr Sahra Koo
Milrinone gtt CVICU care diuresis as per cardiology
cont anticoagulation
prn ativan antiemetic
Assessment / Plan
Assessment / Plan
Physical Exam
General: No pallor, cyanosis, or jaundice.
HEENT: Throat clear. PERRLA Normocephalic atraumatic
NECK: Supple. No JVD Carotid Bruits
RESPIRATORY:mild faint crackles largely clear to auscultation
CVS: Sinus tachy
ABDOMEN: Soft, non-tender. No distension. BS+/normal.
EXTREMITIES: No peripheral cyanosis or edema.
DOLL SURGEON: AOx3
IMPRESSION:
63M MATTY CPAP history rheumatoid arthritis DVT Eliquis hypertension HFrEF recent hospitalization in July septic shock secondary to pneumonia with associate acute on chronic HFrEF presents with progressive cough past few days associated with
worsening shortness of breath.� Found to be in afib/aflutter RVR.� Denied chest pain palpitations fever sneezing nausea vomiting constipation.� Chest XR concerning for new onset right lower lobe pneumonia.� Afebrile no leukocytosis.� Procalcitonin
negative. Empiric abx soon discontinued. Patient denies association coughing with meals.� BNP significantly elevated 6070 from prior 2590.� Lungs however clear to auscultation.� No significant edema lower ext's.� Patient denies any significant
weight gain and reports compliance with medications (Correction to prior documentation, mild increase in weight 76.289 from discharge to 77.111kg on presentation).�
PLAN:
#New Onset Afib/Aflutter RVR
#CXR concerning for new onset mild right lower lobe pneumonia more likely residual effect from past completed pneumonia treatment. Procalcitonin neg, unlikely active pna infection at this time.
#Hypotension/Low Normotensive
IVU admit
empiric abx ceftriaxone azithromcyin discontinued
blood cultures NGTD
Cardio eval appreciated Cardizem gtt completed, started on Amiodarone with eventual subsequent spontaneous conversion to NSR
home Eliquis converted to hep gtt planned for cardiac biopsy as below
midodrine prn
#nausea/vomiting
possible amiodarone side effect vs uncontrolled heart failure vs pleural effusion
prn compazine, Tigan
improved since start milrinone gtt
#Possible anxiety contributing to episodic feelings shortness of breath chest tightness
#also possible contributing to nausea
ativan prn
#Acute on Chronic HFrEF
BNP increased
diuresis as per cardio
daily weights
I&O
cont home Jardiance, Coreg with holding parameters
Cardio eval appreciated unlikely to tolerate Entresto, low dose enalapril attempted but discontinued, never received due to low pressures holding parameters
Cardiac MRI noted
-severe diffuse infiltrative myocardial disease possible differential cardiac sarcoidosis, amyloidosis, myocardial fibrosis, and less likely myocarditis
-severe impaired LV systolic Function
-severe mitral regurgitation
-moderate sized b/l pleural effusions (IR consulted for thoracentesis however placed on hold in favor of RHC as per Cardiology)
In lieu of degree of illness and infiltrative disorder as noted above, cardiology discussed with patient and his , recommending transfer to [place] for endomyocardial biopsy, patient consenting to transfer, [place] accepted under the care of Dr Bocanegra
[place]
08/26 Eliquis transitioned to Hep gtt RHC was performed showing significant reduced cardiac output and cardiac index warranting start on milrinone and transfer to CVICU as per cardio- while awaiting Bed availability [place] transfer
Metabolic Acidosis mild
low dose Bicarb PO supplementation started
acidosis eventually resolved, bicarb supplementation since completed
Mild QT prolongation
-minimize QT prolonging agent use as possible
#Rheumatoid Arthritis
Continue Home Leflunomide
#MATTY
continue home CPAP
#Hx DVT
cont home Eliquis
GI ppx Protonix
Full Code
I spent a total of� 52� � minutes with the patient or on the floor. More than 50% of this time involved counseling and coordination of care.
Anticipated Discharge: Within 24 hours
Subjective/Interval History
-
Date of Service: August 29, 2023
Reports feeling well, nausea significantly improved.
Objective Data
-
Labs:
Laboratory Results
08/28/23 08/29/23 08/29/23
23:57 06:07 13:00
WBC 6.1
Hgb 10.8 L
Hct 30.4 L
Plt Count 223
APTT 38.3 H 50.1 H Pending
Sodium 137
Potassium 4.2 D 3.9
Chloride 105
Carbon Dioxide 24
BUN 40 H
Creatinine 1.1
Glucose 101 H
Calcium 8.6
Vital Signs:
Vital Signs
Temp Pulse Resp BP Pulse Ox
97.4 F 96 19 109/79 98
08/29/23 06:00 08/29/23 07:30 08/29/23 07:30 08/29/23 07:00 08/29/23 07:29
I&O
08/28/23 08/29/23 08/30/23
06:59 06:59 07:59
Intake Total 278.4 / 294.2 1207.6 / 1207.6 29.8 / 29.8
Output Total 500 / 500 1800 / 1800 200 / 200
Balance -221.6 / -205.8 -592.4 / -592.4 -170.2 / -170.2
[2023-08-29] MEDS: PACERONE 200 MG PO (08:06)
[2023-08-29] MEDS: JARDIANCE 10 MG PO (08:07)
[2023-08-29] MEDS: THERAGRAN 1 TABLET PO (08:07)
[2023-08-29] MEDS: COREG 3.125 MG PO ×2 (08:07→19:50)
[2023-08-29] MEDS: PROTONIX 40 MG PO (08:07)
[2023-08-29] MEDS: NON-FORMULARY ITEM 1 MG PO (08:08)
[2023-08-29] MEDS: LASIX IV (08:17)
[2023-08-29] MEDS: LASIX 40 MG IV ×2 (09:05→16:20)
--- NOTE | 2023-08-29 09:38 | PTCARENOTE ---
Patient received from table games shift manager resting comfortably in bed, AAO x 3, denies pain at this time. NSR/ST via cm, SaO2 @ 97% on 3lnc. RIJ Cordis w/kvo infusing. Updated to plan of care, in agreement. Voiding to urinal independently. Milrinone and
heparin gtts infusing - see work list interventions for titrations. See work list for full assessment and interventions performed.
--- NOTE | 2023-08-29 10:30 | W.PN.CARDCBS ---
Today's Communication / Plan
-
Increase Lasix to 40 mg IV twice daily if blood pressure tolerates
Continue milrinone
Continue IV heparin while off of Eliquis
Await transfer to [facility] for endomyocardial biopsy
Impression / Plan
-
PCP: Dr. Myers
Cardiology: Dr. Ramsey
Impression:
Presented 08/24/2023 with palpitations, tachycardia and shortness of breath
Atrial flutter with rapid ventricular response
Acute on chronic heart failure with reduced ejection fraction, proBNP
Concern for pneumonia
Acute hypoxic respiratory insufficiency
Hypotension
Recent admission 07/24/2023 for Sepsis and shock/pneumonia
Chronic HFrEF
Nonischemic CM EF 25-30% by echo 06/12/23 and 35% (25% visual) by repeat echo 08/04/23
Moderate to severe mitral regurgitation
Normal coronary arteries by cath 06/19/23
HTN
RA
h/o DVT in 2014 and again 04/2023
Chronic Eliquis OAC
MATTY on CPAP
Echo 06/12/23:�EF 25-30%, mod MR, mild TR with PAP 25-30 mmHg
Echo 08/04/23: EF 35% quantitatively but 25% by visual estimate, mod to sev MR
Cardiac cath May 2023:Non-obstructive CAD. Wedge was 29.
Plan:
He is a very difficult examination but likely remains volume overloaded
Weight is down 3 pounds in the past 24 hours to 164 pounds
Will increase IV Lasix to 40 mg IV twice daily if blood pressure tolerates
Continue milrinone
Stella-Bea was pulled on 08/28/2023 due to bleeding
He presented in new rapid aflutter and spontaneously converted. Telemetry with brief episodes of atrial fibrillation. continue amio 200mg daily which was reduced because of nausea
OP eliquis has been transitioned to IV heparin. he does have history of recurrent DVT in addition.
awaiting bed availability at [place]. accepting physician Dr. Sahra Koo. cardiac MRI with evidence of severe diffuse infiltrative myocardial disease. needs myocardial biopsy
Would consider outpatient EP eval for flutter ablation
of note, he recently had skin biopsy completed through Dr. Salmon (derm). sutures due to be removed Thursday08/31/23. awaiting biopsy results.
d/w nursing
Discussed with primary service
PREADMIT DATA:
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
and pneumonia who presents 08/24/2023 with acute onset shortness of breath, palpitations and tachycardia. Patient reports he had been doing well with stable weights and improving shortness of breath. He started cardiac rehab and was participating
without issues. However over the last several days he started to note intermittent episodes of palpitations associated with tachycardia and shortness of breath. He was able to complete cardiac rehab this morning but felt off. Upon getting home he
noted his heart rate was elevated and had worsening shortness of breath that persisted after several minutes prompting him to come to the emergency department. On admission he was noted to be in hypotensive in atrial fibrillation/flutter with rapid
ventricular response. proBNP was 6070. Chest x-ray shows new findings suggesting right lower lobe pneumonia. and he was placed on IV diltiazem drip.
At time of this evaluation patient continues to feel mildly short of breath with elevated heart rates and palpitations. He is currently wearing 2 L of oxygen via nasal cannula. He reports his weight has been relatively stable at home between 170
and 172 pounds. He denies lower extremity edema. He does feel his belly may be more bloated. He denies chest pain.
Progress Note - Door Technician
Subjective
Date of Service: August 29, 2023
no complaints
Objective
Labs:
08/29/23 06:07
08/29/23 06:07
Labs
Hgb 10.8 g/dL (13.0-18.0) L 08/29/23 06:07
Hct 30.4 % (39.0-52.0) L 08/29/23 06:07
Plt Count 223 10^3/uL (130-400) 08/29/23 06:07
PT 17.0 Sec (11.4-14.6) H 08/24/23 10:43
INR 1.40 08/24/23 10:43
APTT 50.1 Sec (23.4-35.0) H 08/29/23 06:07
Sodium 137 mmol/L (135-145) 08/29/23 06:07
Potassium 3.9 mmol/L (3.5-5.1) 08/29/23 06:07
BUN 40 mg/dl (9-20) H 08/29/23 06:07
Creatinine 1.1 mg/dL (0.7-1.3) 08/29/23 06:07
Glucose 101 mg/dl (70-99) H 08/29/23 06:07
Vital Signs and I&O:
Vital Signs
Temp Pulse Resp BP Pulse Ox
97.5 F 98 26 115/85 97
08/29/23 08:15 08/29/23 09:30 08/29/23 09:30 08/29/23 09:05 08/29/23 08:16
Vital Signs
Temp Pulse Resp BP Pulse Ox
97.5 F 98 26 115/85 97
08/29/23 08:15 08/29/23 09:30 08/29/23 09:30 08/29/23 09:05 08/29/23 08:16
Intake & Output
08/27/23 08/28/23 08/29/23 08/30/23
06:59 06:59 06:59 07:59
Intake Total 1200 / 1200 278.4 / 294.2 1207.6 / 1207.6 369.2 / 369.2
Output Total 1500 / 1500 500 / 500 1800 / 1800 750 / 750
Balance -300 / -300 -221.6 / -205.8 -592.4 / -592.4 -380.8 / -380.8
Physical Exam
Physical Exam
General: Well developed, well nourished in NAD.
Neck: Supple, no JVD, HJR, carotids +2 B/L, no bruits bilaterally.
Heart: Non displaced PMI, RRR, no murmurs, No S3, S4, no rubs.
Lungs: crackles at bases bilaterally
Extremities: No clubbing, cyanosis or edema bilaterally.
Neuro: Grossly nonfocal, awake, alert and oriented x3.
[2023-08-29] MEDS: PRIMACOR 20 MG 100 IV (10:47)
--- NOTE | 2023-08-29 12:05 | PTCARENOTE ---
VS obtained, assessment unchanged. Family at bedside for visit.
[2023-08-29] MEDS: COMPAZINE 5 MG IV (12:50)
[2023-08-29 12:55] LABS: Glucose - Point of Care 109 mg/dl (70-99)
[2023-08-29] MEDS: ATIVAN 0.5 MG PO (13:24)
[2023-08-29 13:29] LABS: APTT 65.7 Sec (23.4-35.0)
[2023-08-29] MEDS: HEPARIN 25000 UNITS/250 ML IV (16:18)
--- NOTE | 2023-08-29 16:33 | PTCARENOTE ---
VS obtained, assessment unchanged. BP conveyed to Dr. Holly, advised nursing administer scheduled furosemide.
--- NOTE | 2023-08-29 20:23 | PTCARENOTE ---
Assumed care of patient at 1900. Patient found in bed at time of assessment. Patient is AOx4, follows commands appropriately, moves all extremities. Patient does report having anxiety at times. Lung sounds are diminished in the bases, saO2 at 98% on
RA. Heart sounds have a regular rate and rhythm, patient has weak but palpable dorsalis pedis pulses and normal radial pulses, no edema is noted. Patient has a soft nontender abdomen with active BS throughout all four quadrants. BM reported today.
Patient is voiding clear yellow urine. Patient has sutures on the back from growth removal, and brownish discoloration of the lower extremities likely 2/2 PVD. Patient has a R IJ cordis receiving heparin@1400 units, milrinone @0.3 mcg. There is also
a L FA and R FA PIV available for intermittent infusion. VSS. Patient is stable at this time.
[2023-08-29 20:29] LABS: APTT 57.8 Sec (23.4-35.0)
[2023-08-30] VITALS (21 sets, daily range): BP systolic 83–115; BP diastolic 56–95; PULSE 95; BMI 19.9
--- NOTE | 2023-08-30 00:30 | PTCARENOTE ---
Patient reassessed. VSS. PTT @2000 not therapeutic heparin gtt adjusted to 1600 units. Patient remains in SR on the monitor. Patient is stable.
--- NOTE | 2023-08-30 04:13 | PTCARENOTE ---
Patient reassessed. VSS. No c/o pain, nausea, anxiety. AM labs obtained. AM hygiene provided. Patient remains NSR on the monitor. Patient is stable.
[2023-08-30] MEDS: PRIMACOR 20 MG 100 IV ×2 (04:17→15:50)
[2023-08-30 04:29] LABS: Hematocrit 32.4 % (39.0-52.0); Hemoglobin 11.4 g/dL (13.0-18.0); Mean Corp Hgb Conc. 35.2 g/dL (33.0-37.0); Mean Corpuscular Hgb 30.5 pg (27.0-31.0); Mean Corpuscular Volume 86.6 fL (80.0-94.0); Mean Platelet Volume 11.1 fL (7.4-10.4); Platelet Count 225 10^3/uL (130-400); Red Blood Cell Count 3.74 10^6/uL (4.70-6.10); Red Cell Dist. Width 13.2 % (11.5-14.5); White Blood Cell Count 6.2 10^3/uL (4.8-10.8)
[2023-08-30 04:34] LABS: APTT 86.8 Sec (23.4-35.0)
[2023-08-30 05:32] LABS: Blood Urea Nitrogen 31 mg/dl (9-20); Calcium 8.5 mg/dl (8.4-10.2); Carbon Dioxide 25 mmol/L (22-30); Chloride 105 mmol/L (98-107); Estimated Creatinine Clearance 80 ml/min; Glucose 91 mg/dl (70-99); Magnesium 2.4 mg/dl (1.6-2.3); Potassium 2.9 mmol/L (3.5-5.1); Sodium 138 mmol/L (135-145); eGFR > 60.00
[2023-08-30] MEDS: HEPARIN 25000 UNITS/250 ML IV ×2 (06:32→19:50)
[2023-08-30] MEDS: KCL 100 IV (07:01)
--- NOTE | 2023-08-30 07:34 | W.PN.HOSP.TC ---
Today's Communication/Plan
-
replete potassium
cont diuresis milrinone gtt as per cardio
transfer to [facility] when bed available, for cardiac biopsy, accepting physician Dr Sahra Koo
Assessment / Plan
Assessment / Plan
Physical Exam
General: No pallor, cyanosis, or jaundice.
HEENT: Throat clear. PERRLA Normocephalic atraumatic
NECK: Supple. No JVD Carotid Bruits
RESPIRATORY:mild faint crackles largely clear to auscultation
CVS: Sinus tachy
ABDOMEN: Soft, non-tender. No distension. BS+/normal.
EXTREMITIES: No peripheral cyanosis or edema.
ADVANCED PRACTICE NURSE: AOx3
IMPRESSION:
63M MATTY CPAP history rheumatoid arthritis DVT Eliquis hypertension HFrEF recent hospitalization in July septic shock secondary to pneumonia with associate acute on chronic HFrEF presents with progressive cough past few days associated with
worsening shortness of breath.� Found to be in afib/aflutter RVR.� Denied chest pain palpitations fever sneezing nausea vomiting constipation.� Chest XR concerning for new onset right lower lobe pneumonia.� Afebrile no leukocytosis.� Procalcitonin
negative. Empiric abx soon discontinued. Patient denies association coughing with meals.� BNP significantly elevated 6070 from prior 2590.� Lungs however clear to auscultation.� No significant edema lower ext's.� Patient denies any significant
weight gain and reports compliance with medications (Correction to prior documentation, mild increase in weight 76.289 from discharge to 77.111kg on presentation).�
PLAN:
#New Onset Afib/Aflutter RVR
#CXR concerning for new onset mild right lower lobe pneumonia more likely residual effect from past completed pneumonia treatment. Procalcitonin neg, unlikely active pna infection at this time.
#Hypotension/Low Normotensive
IVU admit
empiric abx ceftriaxone azithromcyin discontinued
blood cultures NGTD
Cardio eval appreciated Cardizem gtt completed, started on Amiodarone with eventual subsequent spontaneous conversion to NSR
home Eliquis converted to hep gtt planned for cardiac biopsy as below
midodrine prn
#nausea/vomiting
possible amiodarone side effect vs uncontrolled heart failure vs pleural effusion
prn compazine, Tigan
improved since start milrinone gtt and increased lasix diuresis
#Anxiety
ativan prn
#Acute on Chronic HFrEF
BNP increased
diuresis as per cardio
daily weights
I&O
cont home Jardiance, Coreg with holding parameters
Cardio eval appreciated unlikely to tolerate Entresto, low dose enalapril attempted but discontinued, never received due to low pressures holding parameters
#hypokalemia
likely due to increased diuresis lasix 40 mg IV BID
repleted
started scheduled potassium 20 mEq PO daily
Cardiac MRI noted
-severe diffuse infiltrative myocardial disease possible differential cardiac sarcoidosis, amyloidosis, myocardial fibrosis, and less likely myocarditis
-severe impaired LV systolic Function
-severe mitral regurgitation
-moderate sized b/l pleural effusions (IR consulted for thoracentesis however placed on hold in favor of RHC as per Cardiology)
In lieu of degree of illness and infiltrative disorder as noted above, cardiology discussed with patient and his , recommending transfer to [facility] for endomyocardial biopsy, patient consenting to transfer, [facility] accepted under the care of Dr Bocanegra
[place]
08/26 Eliquis transitioned to Hep gtt RHC was performed showing significant reduced cardiac output and cardiac index warranting start on milrinone and transfer to CVICU as per cardio- while awaiting Bed availability [facility] transfer
Metabolic Acidosis mild
low dose Bicarb PO supplementation started
acidosis eventually resolved, bicarb supplementation since completed
Mild QT prolongation
-minimize QT prolonging agent use as possible
#Rheumatoid Arthritis
Continue Home Leflunomide
#MATTY
continue home CPAP
#Hx DVT
cont home Eliquis
GI ppx Protonix
Full Code
I spent a total of� 53� � minutes with the patient or on the floor. More than 50% of this time involved counseling and coordination of care.
Anticipated Discharge: Today
Subjective/Interval History
-
Date of Service: August 30, 2023
Reports feeling well nausea resolved. no acute distress. Appears comfortable at this time on room air.
Objective Data
-
Labs:
Laboratory Results
08/29/23 08/30/23 08/30/23
20:03 04:07 11:00
WBC 6.2
Hgb 11.4 L
Hct 32.4 L
Plt Count 225
APTT 57.8 H 86.8 H Pending
Sodium 138
Potassium 2.9 L D
Chloride 105
Carbon Dioxide 25
BUN 31 H
Creatinine 1.0
Glucose 91
Calcium 8.5
Vital Signs:
Vital Signs
Temp Pulse Resp BP Pulse Ox
97.8 F 89 17 110/95 93
08/30/23 05:30 08/30/23 07:00 08/30/23 07:00 08/30/23 07:00 08/30/23 05:30
I&O
08/29/23 08/30/23 08/31/23
05:59 06:59 06:59
Intake Total
Output Total
Balance
--- NOTE | 2023-08-30 08:15 | PTCARENOTE ---
Patient received from shift coordinator resting oob in chair, AAO x 3, denies pain. NSR/ST via cm, SaO2 @ 96% on RA. RIJ Cordis w/kvo, milrinone, heparin infusing, K+ rider. Patient updated to plan of care for the day, in agreement. See work list for full
assessment, interventions performed, intravenous infusion rates and titrations.
[2023-08-30] MEDS: JARDIANCE 10 MG PO (09:04)
[2023-08-30] MEDS: PROTONIX 40 MG PO (09:04)
[2023-08-30] MEDS: THERAGRAN 1 TABLET PO (09:04)
[2023-08-30] MEDS: PACERONE 200 MG PO (09:05)
[2023-08-30] MEDS: NON-FORMULARY ITEM 1 MG PO (09:06)
[2023-08-30] MEDS: KCL 40 MEQ PO ×2 (10:11→15:49)
[2023-08-30] MEDS: ATIVAN 0.5 MG PO (10:11)
[2023-08-30] MEDS: COREG 3.125 MG PO (10:11)
[2023-08-30] MEDS: LASIX 40 MG IV ×2 (10:41→15:49)
[2023-08-30 11:33] LABS: APTT 91.8 Sec (23.4-35.0)
--- NOTE | 2023-08-30 12:00 | W.PN.CARDCBS ---
Today's Communication / Plan
-
Continue IV Lasix
Continue IV milrinone
Continue IV heparin while off of Eliquis
4 beats of nonsustained V. tach possibly due to low potassium potassium has been repleted
Await transfer to [facility] for myocardial biopsy
Impression / Plan
-
PCP: Dr. Myers
Cardiology: Dr. Ramsey
Impression:
Presented 08/24/2023 with palpitations, tachycardia and shortness of breath
Atrial flutter with rapid ventricular response
Acute on chronic heart failure with reduced ejection fraction, proBNP
Concern for pneumonia
Acute hypoxic respiratory insufficiency
Nonsustained V. tach -4 beats 3/10 am
Recent admission 07/24/2023 for Sepsis and shock/pneumonia
Chronic HFrEF
Nonischemic CM EF 25-30% by echo 06/12/23 and 35% (25% visual) by repeat echo 08/04/23
Moderate to severe mitral regurgitation
Normal coronary arteries by cath 06/19/23
HTN
RA
h/o DVT in 2014 and again 04/2023
Chronic Eliquis OAC
MATTY on CPAP
Hypokalemia
Echo 06/12/23:�EF 25-30%, mod MR, mild TR with PAP 25-30 mmHg
Echo 08/04/23: EF 35% quantitatively but 25% by visual estimate, mod to sev MR
Cardiac cath May 2023:Non-obstructive CAD. Wedge was 29.
Plan:
He is a very difficult examination but likely remains volume overloaded
He continues to lose weight with normal renal function
Weight is down 8 pounds over the past 48 hrs
We will continue IV Lasix and milrinone
Brief nonsustained V. tach which may be due to hypokalemia which has been repleted
[place] was pulled on 08/28/2023 due to bleeding
He presented in new rapid aflutter and spontaneously converted. Telemetry with brief episodes of atrial fibrillation. continue amio 200mg daily which was reduced because of nausea
OP eliquis has been transitioned to IV heparin. he does have history of recurrent DVT in addition.
awaiting bed availability at [facility]. accepting physician Dr. Sahra Koo. cardiac MRI with evidence of severe diffuse infiltrative myocardial disease. needs myocardial biopsy
Would consider outpatient EP eval for flutter ablation
of note, he recently had skin biopsy completed through Dr. Salmon (derm). sutures due to be removed Thursday08/31/23. awaiting biopsy results.
d/w nursing
Discussed with nursing and updated Dr. Koo at [facility]
PREADMIT DATA:
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
and pneumonia who presents 08/24/2023 with acute onset shortness of breath, palpitations and tachycardia. Patient reports he had been doing well with stable weights and improving shortness of breath. He started cardiac rehab and was participating
without issues. However over the last several days he started to note intermittent episodes of palpitations associated with tachycardia and shortness of breath. He was able to complete cardiac rehab this morning but felt off. Upon getting home he
noted his heart rate was elevated and had worsening shortness of breath that persisted after several minutes prompting him to come to the emergency department. On admission he was noted to be in hypotensive in atrial fibrillation/flutter with rapid
ventricular response. proBNP was 6070. Chest x-ray shows new findings suggesting right lower lobe pneumonia. and he was placed on IV diltiazem drip.
At time of this evaluation patient continues to feel mildly short of breath with elevated heart rates and palpitations. He is currently wearing 2 L of oxygen via nasal cannula. He reports his weight has been relatively stable at home between 170
and 172 pounds. He denies lower extremity edema. He does feel his belly may be more bloated. He denies chest pain.
Progress Note - Washroom Attendant
Subjective
Date of Service: August 30, 2023
No complaints. He feels much better. He has less nausea and more appetite
Objective
Labs:
08/30/23 04:07
Labs
Hgb 11.4 g/dL (13.0-18.0) L 08/30/23 04:07
Hct 32.4 % (39.0-52.0) L 08/30/23 04:07
Plt Count 225 10^3/uL (130-400) 08/30/23 04:07
PT 17.0 Sec (11.4-14.6) H 08/24/23 10:43
INR 1.40 08/24/23 10:43
APTT 91.8 Sec (23.4-35.0) H 08/30/23 11:04
Sodium 138 mmol/L (135-145) 08/30/23 04:07
Potassium 2.9 mmol/L (3.5-5.1) L D 08/30/23 04:07
BUN 31 mg/dl (9-20) H 08/30/23 04:07
Creatinine 1.0 mg/dL (0.7-1.3) 08/30/23 04:07
Glucose 91 mg/dl (70-99) 08/30/23 04:07
Vital Signs and I&O:
Vital Signs
Temp Pulse Resp BP Pulse Ox
98 F 95 16 110/84 99
08/30/23 11:41 08/30/23 11:30 08/30/23 11:41 08/30/23 11:00 08/30/23 11:41
Vital Signs
Temp Pulse Resp BP Pulse Ox
98 F 95 16 110/84 99
08/30/23 11:41 08/30/23 11:30 08/30/23 11:41 08/30/23 11:00 08/30/23 11:41
Intake & Output
08/28/23 08/29/23 08/30/23 08/31/23
05:59 05:59 06:59 06:59
Intake Total 464.0 / 464.0
Output Total 575 / 575
Balance -111.0 / -111.0
Physical Exam
Physical Exam
General: Well developed, well nourished in NAD.
Neck: Supple, no JVD, HJR, carotids +2 B/L, no bruits bilaterally.
Heart: Non displaced PMI, RRR, no murmurs, No S3, S4, no rubs.
Lungs: Clear to auscultation bilaterally, no wheeze, rhonchi, rubs bilaterally,
normal expiratory phase.
Extremities: No clubbing, cyanosis or edema bilaterally.
Neuro: Grossly nonfocal, awake, alert and oriented x3.
--- NOTE | 2023-08-30 12:04 | PTCARENOTE ---
VS obtained, assessment stable. Drs. Holly, Seth to bedside, updated to status. Patient denies pain, resting comfortably.
[2023-08-30 13:23] LABS: Albumin 4.3 g/dl (3.5-5.0); Blood Urea Nitrogen 28 mg/dl (9-20); Calcium 8.8 mg/dl (8.4-10.2); Carbon Dioxide 26 mmol/L (22-30); Chloride 104 mmol/L (98-107); Estimated Creatinine Clearance 77 ml/min; Glucose 111 mg/dl (70-99); Phosphorus 3.7 mg/dl (2.5-4.5); Potassium 3.4 mmol/L (3.5-5.1); Sodium 138 mmol/L (135-145); eGFR > 60.00
--- NOTE | 2023-08-30 16:28 | PTCARENOTE ---
VS obtained, assessment unchanged. Patient assisted to ambulate in [place] approx 200 feet, tolerated well. Family to bedside for visit.
--- NOTE | 2023-08-30 18:07 | W.DCSUMMARY ---
Discharge Summary
Discharge Data
Date of Admission: 08/24/23
Date of Discharge: 08/30/23
-
Pending Results: No
Hospital Course
63M MATTY CPAP history rheumatoid arthritis DVT Eliquis hypertension HFrEF recent hospitalization in July septic shock secondary to pneumonia with associate acute on chronic HFrEF presents with progressive cough past few days associated with
worsening shortness of breath.� Found to be in afib/aflutter RVR.� Denied chest pain palpitations fever sneezing nausea vomiting constipation.� Chest XR concerning for new onset right lower lobe pneumonia.� Afebrile no leukocytosis.� Procalcitonin
negative.� Empiric abx soon discontinued.� Patient denies association coughing with meals.� BNP significantly elevated 6070 from prior 2590.� Lungs however clear to auscultation.� No significant edema lower ext's.� Patient denied any significant
weight gain and reported compliance with medications. New Onset Afib/Aflutter RVR, CXR concerning for new onset mild right lower lobe pneumonia more likely residual effect from past completed pneumonia treatment.� Procalcitonin neg, unlikely active
PNA infection at this time, empiric abx ceftriaxone azithromcyin were subsequently discontinued. Blood cultures NGTD. Cardio eval appreciated Cardizem gtt completed, started on Amiodarone with eventual subsequent spontaneous conversion to NSR.
Home Eliquis converted to hep gtt planned for cardiac biopsy as below. Blood pressure low normotensive, patient was stared on midodrine prn. Nausea/vomiting possible amiodarone side effect vs uncontrolled heart failure vs anxiety, patient was
treated with prn Ativan Compazine. Eventually patient improved with start milrinone gtt and increased Lasix diuresis.
Cardiac MRI noted
-severe diffuse infiltrative myocardial disease possible differential cardiac sarcoidosis, amyloidosis, myocardial fibrosis, and less likely myocarditis
-severe impaired LV systolic Function
-severe mitral regurgitation�
-moderate sized b/l pleural effusions (IR consulted for thoracentesis however placed on hold in favor of RHC as per Cardiology)
In lieu of degree of illness and infiltrative disorder as noted above, cardiology discussed with patient and his , recommending transfer to [facility] for endomyocardial biopsy, patient consented to transfer, [facility] accepted under the care of Dr Bocanegra
Hanane. 08/26 Svetlana was transitioned to Hep gtt and RHC was performed showing significant reduced cardiac output and cardiac index warranting start on milrinone and transfer to CVICU as per cardio- while awaiting Bed availability [facility] transfer.
Relatively stable on milrinone gtt and lasix diuresis, patient was transferred to [facility] for cardiac biopsy and further evaluation and treatment.
Discharge Plan
-
Patient Disposition: Acute Care Hospital
Discharge Orders:
Discharge Patient (As Directed); Ordered 08/27/23
Ordered By: Harvey Ann
Discharge Date and Time
Discharge Date/Time: 08/30/23 20:20
--- NOTE | 2023-08-30 18:45 | PTCARENOTE ---
Call received from [facility], bed available at [id number]. ALS transport secured through [facility] w/pickup scheduled approximately 1900. Report called to Vahid @ [facility] via [phone].
--- NOTE | 2023-08-30 20:20 | PTCARENOTE ---
[facility] Transfer at bedside Heparin and Milrinone gtt verified with EMS staff at bedside. all belongings taken with PT. last set of vitals in worklist. see worklist for detailed assessment
== END 2023-08-30 20:20 | disposition short-term general hospital (02) | DRG 286 ==
LOC: CVICU 14:21
PROVIDERS: Internal Medicine Cardiovascular Disease; Physician Assistant; Physician Assistant Medical; ADMITTING PHYSICIAN Internal Medicine; CONSULT PHYSICIAN Internal Medicine Cardiovascular Disease; EMERGENCY PHYSICIAN Student in an Organized Health Care Education/Training Program; FAMILY PHYSICIAN Family Medicine
PROC: B2111ZZ Fluoroscopy of Multiple Coronary Arteries using Low Osmolar Contrast (ICD-10-PCS; 2023-08-27)
PROC: 4A023N6 Measurement of Cardiac Sampling and Pressure, Right Heart, Percutaneous Approach (ICD-10-PCS; 2023-08-27)
PROC: B2141ZZ Fluoroscopy of Right Heart using Low Osmolar Contrast (ICD-10-PCS; 2023-08-27)
DX: I11.0 Hypertensive heart disease with heart failure (principal); I50.23 Acute on chronic systolic (congestive) heart failure; J18.9 Pneumonia, unspecified organism; R65.21 Severe sepsis with septic shock; I48.92 Unspecified atrial flutter; E87.20 Acidosis, unspecified; I48.3 Typical atrial flutter; J90 Pleural effusion, not elsewhere classified; I42.8 Other cardiomyopathies; I95.9 Hypotension, unspecified; Z79.01 Long term (current) use of anticoagulants; I34.0 Nonrheumatic mitral (valve) insufficiency; R06.89 Other abnormalities of breathing; R09.02 Hypoxemia; M06.9 Rheumatoid arthritis, unspecified; E87.6 Hypokalemia
CPT/HCPCS: 71045; 75561; 80048; 80053; 80069; 82962; 83735; 83880; 84100; 84132; 84145; 84443; 84484; 85025; 85027; 85610; 85730; 86803; 87040; 87070; 87205; 93005; 93451; 94640; 96374; 99291; A9585; C1892; J2260

== ENCOUNTER 2023-10-17 11:41 | Emergency (ER) | payer OTHER, SELFPAY ==
[2023-10-17 11:54] VITALS: BP 139/86
[2023-10-17 13:00] VITALS: BP 120/80
[2023-10-17 13:02] VITALS: BMI 22.2
[2023-10-17 13:07] LABS: % Basophils 1.6 % (0-2); % Eosinophils 9.6 % (0-6); % Immature Granulocytes 0.4 % (0-0.5); % Lymphocytes 28.6 % (20.5-51.1); % Monocytes 18.6 % (1.7-9.3); % Neutrophils 41.2 % (42.2-75.2); Absolute Basophils 0.1 10^3/uL (0-0.2); Absolute Eosinophils 0.5 10^3/uL (0-0.7); Absolute Lymphocytes 1.4 10^3/uL (1.2-3.4); Absolute Monocytes 0.9 10^3/uL (0.1-0.6); Hematocrit 35.7 % (39.0-52.0); Hemoglobin 12.6 g/dL (13.0-18.0); Mean Corp Hgb Conc. 35.3 g/dL (33.0-37.0); Mean Corpuscular Hgb 31.4 pg (27.0-31.0); Mean Platelet Volume 9.7 fL (7.4-10.4); Nucleated Red Blood Cells % 0 % (-); Platelet Count 206 10^3/uL (130-400); Red Blood Cell Count 4.01 10^6/uL (4.70-6.10); Red Cell Dist. Width 13.4 % (11.5-14.5); White Blood Cell Count 4.9 10^3/uL (4.8-10.8)
[2023-10-17 13:19] LABS: COVID-19 Antigen Negative (Negative)
[2023-10-17 13:20] LABS: INR 1.48; PT 17.7 Sec (11.4-14.6)
[2023-10-17 13:21] LABS: APTT 35.7 Sec (23.4-35.0)
[2023-10-17 13:41] LABS: ALT (SGPT) 166 U/L (0-50); AST (SGOT) 98 U/L (17-59); Albumin 4.8 g/dl (3.5-5.0); Alkaline Phosphatase 84 U/L (38-126); Blood Urea Nitrogen 34 mg/dl (9-20); Calcium 9.9 mg/dl (8.4-10.2); Carbon Dioxide 26 mmol/L (22-30); Chloride 103 mmol/L (98-107); Estimated Creatinine Clearance 86 ml/min; Glucose 96 mg/dl (70-99); Magnesium 2.2 mg/dl (1.6-2.3); NT-proBNP 2290 pg/ml; Potassium 4.2 mmol/L (3.5-5.1); Sodium 137 mmol/L (135-145); Total Bilirubin 0.4 mg/dl (0.2-1.3); Troponin I < 0.012 ng/ml; eGFR > 60.00
[2023-10-17 14:00] VITALS: BP 102/68
[2023-10-17 16:00] VITALS: BP 139/87
--- NOTE | 2023-10-17 16:22 | ED.GENMED ---
History of Present Illness
General
Chief Complaint: Breathing Problem
Time Seen by Provider: 10/17/23 12:28
Travel History
Have you had any contact with someone who has COVID-19?: No
Do you have any symptoms of coronavirus? Fever > 100 degrees, chills, cough, shortness of breath, sore throat, loss of taste or smell, muscle aches, or headache?: Yes
Symptoms:: SOB
History of Present Illness
History of Present Illness:
63-year-old male presents emergency room due to chest pain and shortness of breath that happened this morning after going up the stairs. He is on a milrinone drip. He is awaiting heart transplant.
Past History
Past History
ED Past Medical History: CHF, HTN, Other (Cardiomyopathy w EF 25% 05/13/23) and Other (RA)
ED Past Surgical History: Cardiac (cath) and Orthopedic
Social History
Tobacco: Non-smoker
Alcohol: None
Drug: None
Personal:
Living: with family
Employment: Employed
Phy Exam
Physical Exam
Physical Exam:
Physical Exam
General: no apparent distress, not acutely ill
Neck: supple. no meningeal signs. normal posterior pharynx
Heart: s1/s2 regular rate and rhythm, no murmur. equal radial
pulses.
HEENT: Pupils equal round reactive to light, EOMI
Lungs: no acute respiratory distress. clear bilaterally
Abdomen: normal bowel sounds. not tender. no CVAT
Neuro: alert and oriented. no focal neurological deficits cranial nerves II through XII intact
Skin: no rash
Psychiatric: well kept. interactive and cooperative
Extremities: no edema. no calf tenderness. negative homans. good distal pulses, PICC right arm
Scores
Heart Failure Risk
Heart Failure Risk Score: Yes
History of Stroke or TIA: No
History of intubation for respiratory distress: No
Heart rate on ED arrival >/= 110: No
SaO2 <90% on arrival on room air: No
HR >/=110 during 3min walk test (or too ill to perform test): No
ECG has acute ischemic changes: No
Urea >/=12mmol/L (BUN 33.6mg/dL): Yes
Serum CO2>/=35mmol/L: No
Troponin I or T elevated to PA Level (0.4mg/dL): No
NT-proBNP >/=5,000ng/L (5,000pg/ml): No
HF Risk Score: 1
Admission Status: MEDIUM RISK 5.1% Consider observation or discharge to home with homecare & f/u visit to PCP/[facility], or SNF for treatment
Course
Orders/Labs/Results
Orders:
Orders
10/17/23 12:42
IV Insert/Care/Rem.- Treatment PRN
Pulse Ox/cont/shift [RESP] Stat
Quantity: 1
10/17/23 12:43
Electrocardiogram (*1) Stat
Reason for Study: Other
Other Reason for Exam: chest pain
Cardiac Monitoring- Treatment ONCE
EKG- Treatment ONCE
10/17/23 12:49
COVID-19 Antigen Urgent
Source: Nasal Swab
Complete Blood Count/With Diff Urgent
Comprehensive Metabolic Panel Urgent
Magnesium Urgent
NT-proBNP Urgent
PTT Urgent
Prothrombin Time Urgent
Troponin I Urgent
Influenza A+B Rapid Molecular Urgent
TATE Source: Nasal Swab
Specimen Description:
10/17/23 13:31
CR Chest - 2 Views Urgent
Comment:
Reason For Exam: short of breath
Abnormal Lab Results
10/17/23
12:49
RBC 4.01 L 10^6/uL
(4.70-6.10)
Hgb 12.6 L g/dL
(13.0-18.0)
Hct 35.7 L %
(39.0-52.0)
MCH 31.4 H pg
(27.0-31.0)
Absolute Monos (auto) 0.9 H 10^3/uL
(0.1-0.6)
Neutrophils % 41.2 L %
(42.2-75.2)
Monocytes % 18.6 H %
(1.7-9.3)
Eosinophils % 9.6 H %
(0-6)
PT 17.7 H Sec
(11.4-14.6)
APTT 35.7 H Sec
(23.4-35.0)
BUN 34 H mg/dl
(9-20)
AST 98 H U/L
(17-59)
ALT 166 H U/L
(0-50)
10/17/23 12:49
10/17/23 12:49
Vital Signs
Initial and Last Documented VS:
Initial Vital Signs
Temp Pulse Resp BP Pulse Ox
97.5 F 103 24 139/86 100
10/17/23 11:54 10/17/23 11:54 10/17/23 11:54 10/17/23 11:54 10/17/23 11:54
Last Documented Vital Signs
Temp Pulse Resp BP Pulse Ox
97.5 F 86 21 102/68 98
10/17/23 11:54 10/17/23 15:30 10/17/23 15:30 10/17/23 14:00 10/17/23 15:57
MDM/Problems Addressed
Differential Diagnosis Includes:
CHF
MDM/Problems Addressed:
63-year-old male with CHF, on heart transplant list. Discussed with Dr. Corral, who accepts for transfer. Plan for right heart cath.
Chronic conditions affecting care: Cardiomyopathy
Acute Exacerbation and/or Progression of Chronic Illness: Cardiomyopathy
*Radiology
Radiology exam reviewed: preliminary read by ED provider (Chest x-ray no acute findings)
*Pulse Oximetry
Patient hypoxic: no
*EKG
Interpreted by ED Provider?: Yes
EKG Intrepretation Date: 10/17/23
EKG Intrepretation Time: 13:18
Interpretation: normal
Comparison EKG: no changes
Heart Rate: 85
Rate: normal
Rhythm: sinus
[place]: normal axis
Interval: normal interval
QRS Pattern: normal QRS
Ischemia: no ischemia
*Satellite Installation Technician Interpretation
Rate: normal
Interpretation: normal
Heart Rate: 88
Rhythm: sinus
*Critical Care Note
Total Time (30-74mins, 75-104mins- exclusive of procedures): Not Applicable
Data Reviewed
Review of Other/Old Records Reveals: Labs
Patient Management
Social determinants of health affecting care: Living situation
Discussion with other providers: Air Bag Stripper (cardiology Dr. Corral)
Escalation/DeEscalation of care consider admission/obs:
transfer indicated
ED Attending Note
-
Portions of this chart may have been created with voice recognition software.� Occasional wrong word or��sound alike� substitutions may have occurred due to the inherent limitations of voice recognition software.
Discharge Plan
Departure
Patient Disposition: Acute Care Hospital
Date of Disposition: 10/17/23
Time of Disposition: 16:12
Patient with high blood pressure during this ER visit?: Yes
Condition: Good
Discharge Problem:
Acute on chronic systolic (congestive) heart failure
Prescriptions:
No Action
multivitamin Tablet
1 tab PO DAILY
furosemide [Lasix] 20 mg tablet
20 mg PO DAILY
leflunomide 20 mg Tablet
20 mg PO DAILY
albuterol sulfate 90 mcg/actuation Hfa Aerosol Inhaler
1 puff INHALATION R Q4HPRN PRN (Reason: sob)
Jardiance 10 mg Tablet
10 mg PO DAILY
turmeric 400 mg Capsule
400 mg PO DAILY
trazodone 50 mg Tablet
25 mg PO HSPRN PRN (Reason: sleep)
amiodarone 200 mg Tablet
200 mg PO DAILY
warfarin 2.5 mg Tablet
5 mg PO FRSA
warfarin 2.5 mg Tablet
7.5 mg PO WE
warfarin 2.5 mg Tablet
2.5 mg PO SUMOTU
valsartan 80 mg Tablet
20 mg PO DAILY
spironolactone 25 mg Tablet
12.5 mg PO DAILY
heparin lock flush (porcine) [heparin lock flush] 10 unit/mL Solution
5 unit IV DAILYPRN PRN (Reason: venous catheter)
enoxaparin [Lovenox] 80 mg/0.8 mL Syringe
80 mg SC BID
Referrals:
Vale Myers MD [Family Provider] -
Hospital Transfer
Other hospital: [facility]
I certify that the patient requires transfer: Yes
Discussed case with accepting physician: Shayna
Reason for transfer: higher level of care and specialties available
Interventions
Interventions:
*Risk Screen - Suicide Last Done: 10/17/23 11:54
*General Assessment Last Done: 10/17/23 11:54
*Neglect/Abuse Screening Last Done: 10/17/23 11:54
ED- Fall Risk Assessment Last Done: 10/17/23 15:57
ED- Cardiac Assessment Last Done: 10/17/23 15:57
ED- Pulmonary Assessment Last Done: 10/17/23 15:57
Discharge Date and Time
Print Language: CITIZ[place]
[2023-10-17 18:00] VITALS: BP 106/71
[2023-10-17 20:00] VITALS: BP 107/70
== END 2023-10-17 20:46 | disposition short-term general hospital (02) ==
LOC: EMR 11:41
PROVIDERS: EMERGENCY PHYSICIAN Emergency Medicine; FAMILY PHYSICIAN Family Medicine
DX: I50.23 Acute on chronic systolic (congestive) heart failure (principal); I11.0 Hypertensive heart disease with heart failure; Z11.52 Encounter for screening for COVID-19
CPT/HCPCS: 99285; 71046; 80053; 83735; 83880; 84484; 85025; 85610; 85730; 87502; 87811; 93005

== ENCOUNTER 2023-11-20 15:03 | Outpatient (RCR) | payer OTHER, SELFPAY | END 2023-11-20 23:59 | disposition home or self-care (01) | LOC: CRHB 15:03 | PROVIDERS: ATTENDING PHYSICIAN Nuclear Medicine Nuclear Cardiology | DX: I50.23 Acute on chronic systolic (congestive) heart failure (principal) | CPT/HCPCS: G0422; G0423 ==

== ENCOUNTER 2023-12-18 15:43 | Outpatient (RCR) | payer OTHER, SELFPAY ==
[2023-12-21 14:10] LABS: HDL Cholesterol 57 mg/dl; LDL Cholesterol, Calculated 163 mg/dl; Total Cholesterol 248 mg/dl (50-199); Triglyceride 142 mg/dl (10-149); Very Low Density Lipoprotein 28 mg/dl (0-30)
== END 2023-12-18 23:59 | disposition home or self-care (01) ==
LOC: CRHB 15:43
PROVIDERS: ATTENDING PHYSICIAN Nuclear Medicine Nuclear Cardiology; FAMILY PHYSICIAN Family Medicine
DX: I50.22 Chronic systolic (congestive) heart failure (principal)
CPT/HCPCS: 36415; 80061; G0422; G0423

== ENCOUNTER 2023-12-21 16:45 | Outpatient (RCR) | payer OTHER, SELFPAY | END 2023-12-21 23:59 | disposition home or self-care (01) | LOC: CRHB 16:45 | PROVIDERS: ATTENDING PHYSICIAN Nuclear Medicine Nuclear Cardiology | DX: I50.22 Chronic systolic (congestive) heart failure (principal) | CPT/HCPCS: G0422 ==

== ENCOUNTER 2024-01-01 15:06 | Emergency (ER) | payer OTHER, SELFPAY ==
[2024-01-01 15:27] VITALS: BP 128/80
[2024-01-01 15:55] LABS: % Basophils 1.2 % (0-2); % Eosinophils 3.5 % (0-6); % Monocytes 12.8 % (1.7-9.3); % Neutrophils 46.5 % (42.2-75.2); Absolute Basophils 0.1 10^3/uL (0-0.2); Absolute Eosinophils 0.2 10^3/uL (0-0.7); Absolute Lymphocytes 1.8 10^3/uL (1.2-3.4); Absolute Monocytes 0.7 10^3/uL (0.1-0.6); Absolute Neutrophils 2.4 10^3/uL (1.4-6.5); Hematocrit 38.9 % (39.0-52.0); Hemoglobin 13.5 g/dL (13.0-18.0); Mean Corp Hgb Conc. 34.7 g/dL (33.0-37.0); Mean Corpuscular Volume 92.2 fL (80.0-94.0); Mean Platelet Volume 9.4 fL (7.4-10.4); Nucleated Red Blood Cells % 0 % (-); Platelet Count 209 10^3/uL (130-400); Red Blood Cell Count 4.22 10^6/uL (4.70-6.10); Red Cell Dist. Width 13.4 % (11.5-14.5); White Blood Cell Count 5.1 10^3/uL (4.8-10.8)
[2024-01-01 16:20] LABS: NT-proBNP 1210 pg/ml; Troponin I < 0.012 ng/ml
[2024-01-01 16:29] LABS: ALT (SGPT) 31 U/L (0-50); AST (SGOT) 33 U/L (17-59); Albumin 4.8 g/dl (3.5-5.0); Alkaline Phosphatase 59 U/L (38-126); Blood Urea Nitrogen 25 mg/dl (9-20); Calcium 9.7 mg/dl (8.4-10.2); Carbon Dioxide 26 mmol/L (22-30); Chloride 101 mmol/L (98-107); Glucose 101 mg/dl (70-99); Potassium 3.9 mmol/L (3.5-5.1); Sodium 138 mmol/L (135-145); Total Bilirubin 0.3 mg/dl (0.2-1.3); Total Protein 7.7 g/dl (6.3-8.2); eGFR > 60.00
[2024-01-01 16:34] VITALS: BMI 22.1
[2024-01-01 16:39] VITALS: BP 110/79
--- NOTE | 2024-01-01 16:51 | ED.GENMED ---
History of Present Illness
<Aleksandra Tee PA-C - Last Filed: 01/02/24 00:51>
General
Chief Complaint: Breathing Problem
Source: patient
Exam Limitations: none
Time Seen by Provider: 01/01/24 16:50
Nursing documentation reviewed up to this point in time: agreed with
History of Present Illness
History of Present Illness:
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 Patient states that he has
shortness of breath and occasional lightheadedness at baseline, however patient states that today he noticed it a bit more than usual today. Patient states that when he woke up with morning, he felt well. He than went on a one while walk and when
grocery shopping with his and this is when he felt like his shortness of breath got worse. He said he also had an episode of chest pain which lasted a minute and than resolved. Patient also notes lightheadedness/dizziness when ambulating. He
states that this symptom resolves when he sits down. Patient is on a milrinone pump. Patient saw his home infusion nurse today and he described his symptoms and they recommended that he report to the emergency department for evaluation. Patient
follows with Dr. James Valverde at [facility] heart failure program.
Past History
<Aleksandra Tee PA-C - Last Filed: 01/02/24 00:51>
Past History
ED Past Medical History: CHF, HTN, Other (Cardiomyopathy w EF 25% 05/13/23) and Other (RA)
ED Past Surgical History: Cardiac (cath) and Orthopedic
Social History
Tobacco: Non-smoker
Alcohol: None
Drug: None
Personal:
Living: with family
Employment: Employed
Review of Systems
<Aleksandra Tee PA-C - Last Filed: 01/02/24 00:51>
Review of Systems
All Other Systems: ROS reviewed and negative except as documented in HPI and ROS
Phy Exam
<Aleksandra Tee PA-C - Last Filed: 01/02/24 00:51>
Physical Exam
Physical Exam:
General: Patient is well appearing and in no acute distress; non-toxic
Skin: Warm and dry, no rashes or lesions
Head: Normocephalic, atraumatic
Eyes: Sclera non-icteric. EOMs intact. PERRLA.
Cardiac: Regular rate and rhythm, no tenderness palpation of external chest wall
Peripheral Vascular: No lower extremity swelling or edema
Pulm: Normal respiratory effort, no wheezes, rales, rhonchi, no crackles
Abdomen: No abdominal tenderness to palpation.
Neuro: CN II-XII intact, no focal neurologic deficits. Normal finger-nose, [id number] testing.
Psychiatric: Appropriate mood and affect.
Scores
<BRENDEN Caldwell Last Filed: 01/02/24 00:51>
Heart Failure Risk
Heart Failure Risk Score: Yes
History of Stroke or TIA: No
History of intubation for respiratory distress: No (unknown)
Heart rate on ED arrival >/= 110: No
SaO2 <90% on arrival on room air: No
HR >/=110 during 3min walk test (or too ill to perform test): No
ECG has acute ischemic changes: No
Urea >/=12mmol/L (BUN 33.6mg/dL): No
Serum CO2>/=35mmol/L: No
Troponin I or T elevated to OR Level (0.4mg/dL): No
NT-proBNP >/=5,000ng/L (5,000pg/ml): No
HF Risk Score: 0
Admission Status: LOW RISK 2.8% Consider discharge to home with f/u visit to PCP/Shop Router
PE Wells Score
Symptoms of DVT: No
No alternative diagnosis better explains the illness: No
Tachycardia with pulse > 100: No
Immobilization (>=3 days) or surgery within previous 4 weeks: No
Prior history of DVT or pulmonary embolism: No
Presence of hemoptysis: No
Presence of malignancy: No
Pulmonary Embolism Risk Score: 0
Probability of PE: Pt is low risk
Course
<Aleksandra Tee PA-C - Last Filed: 01/02/24 00:51>
Orders/Labs/Results
Orders:
Orders
01/01/24 15:31
EKG [Electrocardiogram (*1)] Urgent
Reason for Study: Chest Pain
EKG- Treatment ONCE
01/01/24 15:43
Complete Blood Count/With Diff Urgent
Comprehensive Metabolic Panel Urgent
NT-proBNP Urgent
Troponin I Urgent
01/01/24 17:09
CR Chest - 2 Views Urgent
Comment:
Reason For Exam: shortness of breath
Abnormal Lab Results
01/01/24
15:43
RBC 4.22 L 10^6/uL
(4.70-6.10)
Hct 38.9 L %
(39.0-52.0)
MCH 32.0 H pg
(27.0-31.0)
Absolute Monos (auto) 0.7 H 10^3/uL
(0.1-0.6)
Monocytes % 12.8 H %
(1.7-9.3)
BUN 25 H mg/dl
(9-20)
Glucose 101 H mg/dl
(70-99)
01/01/24 15:43
01/01/24 15:43
Vital Signs
Initial and Last Documented VS:
Initial Vital Signs
Temp Pulse Resp BP Pulse Ox
97.9 F 78 18 128/80 99
01/01/24 15:27 01/01/24 15:27 01/01/24 15:27 01/01/24 15:27 01/01/24 15:27
Last Documented Vital Signs
Temp Pulse Resp BP Pulse Ox
97.9 F 64 11 123/90 99
01/01/24 15:27 01/01/24 17:41 01/01/24 17:41 01/01/24 18:42 01/01/24 17:41
<Rhys Valentin, DO - Last Filed: 01/01/24 17:31>
Orders/Labs/Results
Orders:
Orders
01/01/24 15:31
EKG [Electrocardiogram (*1)] Urgent
Reason for Study: Chest Pain
EKG- Treatment ONCE
01/01/24 15:43
Complete Blood Count/With Diff Urgent
Comprehensive Metabolic Panel Urgent
NT-proBNP Urgent
Troponin I Urgent
01/01/24 17:09
CR Chest - 2 Views Urgent
Comment:
Reason For Exam: shortness of breath
Abnormal Lab Results
01/01/24
15:43
RBC 4.22 L 10^6/uL
(4.70-6.10)
Hct 38.9 L %
(39.0-52.0)
MCH 32.0 H pg
(27.0-31.0)
Absolute Monos (auto) 0.7 H 10^3/uL
(0.1-0.6)
Monocytes % 12.8 H %
(1.7-9.3)
BUN 25 H mg/dl
(9-20)
Glucose 101 H mg/dl
(70-99)
01/01/24 15:43
01/01/24 15:43
Vital Signs
Initial and Last Documented VS:
Initial Vital Signs
Temp Pulse Resp BP Pulse Ox
97.9 F 78 18 128/80 99
01/01/24 15:27 01/01/24 15:27 01/01/24 15:27 01/01/24 15:27 01/01/24 15:27
Last Documented Vital Signs
Temp Pulse Resp BP Pulse Ox
97.9 F 64 11 123/90 99
01/01/24 15:27 01/01/24 17:41 01/01/24 17:41 01/01/24 18:42 01/01/24 17:41
St[employer];Aleksandra Tee PA-C - Last Filed: 01/02/24 00:51>
MDM/Problems Addressed
Differential Diagnosis Includes:
ddx include acute heart failure exacerbation, pneumonia, end stage heart failure, PE, ACS
MDM/Problems Addressed:
Shortness of breath:
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 Patient states that he has
shortness of breath and occasional lightheadedness at baseline, however patient states that today he noticed it a bit more than usual today. Patient states that he is quite active and walk a lot but states that today he is becoming increasingly
more short of breath with talking and basic activities. Patient also notes mild lightheadedness with walking but has no dizziness or lightheadedness at rest. Patient had short episode of chest pain that was fleeting.
In the emergency department, he is well-appearing, he is not in any respiratory distress. His CBC does not show any evidence of a leukocytosis, his CMP is unremarkable. His proBNP is at baseline. His troponin is undetectable. His chest x-ray is
negative for any acute cardiopulmonary abnormality. Patient did say that his hose operator wanted to be called for updates. I did call patient's hose operator number that he gave me multiple times and no one answered. I did try to get in contact
with the [place] heart failure team physician on-call as well, and making it work was working on this as well, however no one picked up of her being on hold. Patient has no evidence of ACS on his EKG, he has no pneumonia on chest x-ray, no
pneumothorax or pleural effusion, low suspicion for PE, patient stable for discharge, urged patient to call his cardiology team as soon as possible next morning. Patient aware, return precautions discussed, patient stable for discharge.
Chronic conditions affecting care:
idiopathic cardiomyopathy EF 25% milrinone pump awaiting transplant
Acute Exacerbation and/or Progression of Chronic Illness:
idiopathic cardiomyopathy EF 25% milrinone pump awaiting transplant
<Aleksandra Tee PA-C - Last Filed: 01/02/24 00:51>
*Radiology
Radiology exam reviewed: preliminary read by ED provider (No acute cardiopulmonary abnormality)
*Pulse Oximetry
Patient hypoxic: no
*Critical Care Note
Total Time (30-74mins, 75-104mins- exclusive of procedures): Not Applicable
Data Reviewed
Review of Other/Old Records Reveals: Records (Reviewed ER physician documentation from 10/17/2023 where patient was seen for similar symptoms) and Radiology Studies (Reviewed recent echo)
Source: patient and records
Prescriptions/Medications Considered But Not Given:
n/a
Further Testing Considered But Not Given:
n/a
<Aleksandra Tee PA-C - Last Filed: 01/02/24 00:51>
Patient Management
Escalation/DeEscalation of care consider admission/obs:
Admit not indicated. Case reviewed with my attending Dr. Valentin.
<Aleksandra Tee PA-C - Last Filed: 01/02/24 00:51>
Update Note
Update Note:
5:58 pm--attempted to call patient's heart failure team multiple times, or physician on-call at heart transplant program however have been on hold and no one has picked up. Our ammunition storage superintendent has also attempted to get in call with the physician on-call
multiple times.
ED Attending Note
<Aleksandra Tee PA-C - Last Filed: 01/02/24 00:51>
-
Portions of this chart may have been created with voice recognition software.� Occasional wrong word or��sound alike� substitutions may have occurred due to the inherent limitations of voice recognition software.
<Rhys Valentin DO - Last Filed: 01/01/24 17:31>
ED Attending Note
Patient seen and examined by attending physician: Yes
I performed the substantive portion of visit, reviewed & personally made and approve the management plan that is documented in note by myself or ELIZABETH.: Yes
ED Attending Note:
Seen with PA examined independently well-appearing male with chronic heart failure not on oxygen sitting upright on milrinone infusion followed [facility] dizzy and short of breath earlier today looks well here, will check status
include chest x-ray labs, touch base with his outpatient physicians
Discharge Plan
Departure
Patient Disposition: Home (Routine Discharge)
Date of Disposition: 01/01/24
Time of Disposition: 18:36
Patient with high blood pressure during this ER visit?: No
Condition: Good
Discharge Problem:
Shortness of breath, Chronic heart failure
Instructions: Shortness of Breath (Dyspnea) (DC), Heart failure, BLOOD PRESSURE
Prescriptions:
No Action
multivitamin Tablet
1 tab PO DAILY
furosemide [Lasix] 20 mg tablet
20 mg PO DAILY
leflunomide 20 mg Tablet
20 mg PO DAILY
albuterol sulfate 90 mcg/actuation Hfa Aerosol Inhaler
1 puff INHALATION R Q4HPRN PRN (Reason: sob)
Jardiance 10 mg Tablet
10 mg PO DAILY
turmeric 400 mg Capsule
400 mg PO DAILY
trazodone 50 mg Tablet
25 mg PO HSPRN PRN (Reason: sleep)
amiodarone 200 mg Tablet
200 mg PO DAILY
warfarin 2.5 mg Tablet
5 mg PO FRSA
warfarin 2.5 mg Tablet
7.5 mg PO WE
warfarin 2.5 mg Tablet
2.5 mg PO SUMOTU
valsartan 80 mg Tablet
20 mg PO DAILY
spironolactone 25 mg Tablet
12.5 mg PO DAILY
heparin lock flush (porcine) [heparin lock flush] 10 unit/mL Solution
5 unit IV DAILYPRN PRN (Reason: venous catheter)
enoxaparin [Lovenox] 80 mg/0.8 mL Syringe
80 mg SC BID
Referrals:
NONE,* [Active] -
Activity Restrictions/Additional Instructions:
Please call your hose operator's office first thing tomorrow morning.
Please refrain from activities that exacerbate your symptoms for the time being, such as exercise and walking.
Please return emergency department should you experience chest pain, palpitations, an acute worsening of your symptoms, fainting episode, or any other signs or symptoms concerning to you.
Interventions
Interventions:
*Risk Screen - Suicide Last Done: 01/01/24 16:34
*General Assessment Last Done: 01/01/24 15:27
*Neglect/Abuse Screening Last Done: 01/01/24 16:34
*ED COVID-19 Vaccine History Last Done: 01/01/24 15:27
*Nursing Disposition Last Done: 01/01/24 19:40
ED- Cardiac Assessment Last Done: 01/01/24 16:34
ED- Pulmonary Assessment Last Done: 01/01/24 16:40
Discharge Date and Time
Discharge Date/Time: 01/01/24 19:40
Print Language: TURKMEN
[2024-01-01 17:00] VITALS: BP 123/73
[2024-01-01 18:42] VITALS: BP 123/90
== END 2024-01-01 19:40 | disposition home or self-care (01) ==
LOC: EMR 15:06
PROVIDERS: EMERGENCY PHYSICIAN Emergency Medicine; FAMILY PHYSICIAN Family Medicine
DX: R06.02 Shortness of breath (principal); R42 Dizziness and giddiness; R07.9 Chest pain, unspecified; I11.0 Hypertensive heart disease with heart failure; I50.9 Heart failure, unspecified; I42.9 Cardiomyopathy, unspecified; M06.9 Rheumatoid arthritis, unspecified; Z76.82 Awaiting organ transplant status; Z79.01 Long term (current) use of anticoagulants; Z88.5 Allergy status to narcotic agent
CPT/HCPCS: 99284; 71046; 80053; 83880; 84484; 85025; 93005

== ENCOUNTER 2024-06-17 15:35 | Inpatient (IN) | payer OTHER, SELFPAY ==
[2024-06-17] VITALS (12 sets, daily range): BP systolic 97–137; BP diastolic 61–88; BMI 22.2; BMI 21.5
[2024-06-17 03:50] LABS: % Basophils 1.1 % (0-2); % Eosinophils 3.5 % (0-6); % Immature Granulocytes 0.3 % (0-0.5); % Lymphocytes 47.6 % (20.5-51.1); % Monocytes 11.7 % (1.7-9.3); % Neutrophils 35.8 % (42.2-75.2); Absolute Basophils 0.1 10^3/uL (0-0.2); Absolute Eosinophils 0.3 10^3/uL (0-0.7); Absolute Lymphocytes 3.5 10^3/uL (1.2-3.4); Absolute Monocytes 0.9 10^3/uL (0.1-0.6); Absolute Neutrophils 2.7 10^3/uL (1.4-6.5); Hematocrit 43.3 % (39.0-52.0); Hemoglobin 14.5 g/dL (13.0-18.0); Mean Corp Hgb Conc. 33.5 g/dL (33.0-37.0); Mean Corpuscular Hgb 31.7 pg (27.0-31.0); Mean Corpuscular Volume 94.7 fL (80.0-94.0); Mean Platelet Volume 9.8 fL (7.4-10.4); Nucleated Red Blood Cells % 0 % (-); Platelet Count 265 10^3/uL (130-400); Red Blood Cell Count 4.57 10^6/uL (4.70-6.10); Red Cell Dist. Width 13.7 % (11.5-14.5); White Blood Cell Count 7.4 10^3/uL (4.8-10.8)
[2024-06-17 03:59] LABS: INR 2.32; PT 25.9 Sec (11.4-14.6)
[2024-06-17 04:03] LABS: ALT (SGPT) 26 U/L (0-50); AST (SGOT) 32 U/L (17-59); Albumin 5.1 g/dl (3.5-5.0); Alkaline Phosphatase 67 U/L (38-126); Blood Urea Nitrogen 26 mg/dl (9-20); Calcium 9.6 mg/dl (8.4-10.2); Carbon Dioxide 29 mmol/L (22-30); Chloride 101 mmol/L (98-107); Estimated Creatinine Clearance 72 ml/min; Glucose 122 mg/dl (70-99); Potassium 4.6 mmol/L (3.5-5.1); Sodium 139 mmol/L (135-145); Total Bilirubin 0.4 mg/dl (0.2-1.3); Total Protein 8.2 g/dl (6.3-8.2); eGFR > 60.00
[2024-06-17 04:15] LABS: Troponin I < 0.012 ng/ml
--- NOTE | 2024-06-17 06:13 | ED.GENMED ---
Addendum entered and electronically signed by Sal Leal DO 06/17/24 14:34:
Patient pending transfer. Unknown when bed will become available. Will admit to hospital pending bed at [facility]. Remains stable but will need many medications ordered and monitored. Attempting to have device interrogated
Original Note:
History of Present Illness
General
Chief Complaint: Fainting/Passed Out
Source: patient
Time Seen by Provider: 06/17/24 05:54
History of Present Illness
History of Present Illness:
63-year-old male presents to the emergency room after passing out in the bathroom. Patient believes his ICD fired. Patient has end-stage heart failure and is on the heart transplant list at the [facility]. Patient states he got up
to go the bathroom at around 4 AM. He was feeling little dizzy. Next thing he recalls is waking up on the floor. Patient did strike his face and nose. He does take Coumadin. Patient denies any chest pain or shortness of breath. He was recently
started on a course of amoxicillin because he was feeling 'generally weak'. No change in his cardiac medications recently. Patient does have a PICC line in his receiving a milrinone infusion 24 hours a day. Patient does not believe he has ever
been shocked before.
Past History
Past History
ED Past Medical History: CHF, HTN, Other (Cardiomyopathy w EF 25% 05/13/23) and Other (RA)
ED Past Surgical History: Cardiac (cath) and Orthopedic
Social History
Tobacco: Non-smoker
Alcohol: None
Drug: None
Personal:
Living: with family
Employment: Employed
Phy Exam
Physical Exam
Physical Exam:
General: Awake, Alert, Oriented X3. No acute distress.
Vitals: unremarkable
Head: Atraumatic
Eyes: Pupils equal, EOMI
Throat: Airway intact, no exudates
Nose: Abrasion to the bridge of the nose. Nasal septum is midline. No septal hematoma
Neck: Trachea midline
Lungs: Clear and equal b/l
Heart: Regular rate, no murmurs
Abd: Soft, Nontender, No pulsatile mass
Neuro: Nonfocal
Skin: Warm, dry, no rash
Extremities: pulses equal b/l, ecchymosis and hematoma noted medial left knee
Course
Orders/Labs/Results
Orders:
Orders
06/17/24 03:38
EKG [Electrocardiogram (*1)] Urgent
Reason for Study: Syncope
06/17/24 03:39
EKG- Treatment ONCE
06/17/24 03:41
Complete Blood Count/With Diff Urgent
Comprehensive Metabolic Panel Urgent
Troponin I Urgent
06/17/24 03:43
INR [Prothrombin Time] Urgent
06/17/24 04:26
CT Head W/o Iv Contrast Urgent
Comment:
Reason For Exam: FALL, +HEAD STRIKE
06/17/24 04:28
CT Cervical Spine W/o Iv Contr Urgent
Comment:
Reason For Exam: FALL
Abnormal Lab Results
06/17/24 06/17/24
03:41 03:43
RBC 4.57 L 10^6/uL
(4.70-6.10)
MCV 94.7 H fL
(80.0-94.0)
MCH 31.7 H pg
(27.0-31.0)
Absolute Lymphs (auto) 3.5 H 10^3/uL
(1.2-3.4)
Absolute Monos (auto) 0.9 H 10^3/uL
(0.1-0.6)
Neutrophils % 35.8 L %
(42.2-75.2)
Monocytes % 11.7 H %
(1.7-9.3)
PT 25.9 H Sec
(11.4-14.6)
BUN 26 H mg/dl
(9-20)
Glucose 122 H mg/dl
(70-99)
Albumin 5.1 H g/dl
(3.5-5.0)
06/17/24 03:41
06/17/24 03:41
Vital Signs
Initial and Last Documented VS:
Initial Vital Signs
Pulse Ox
97
06/17/24 03:40
Last Documented Vital Signs
Pulse Resp BP Pulse Ox
68 17 104/73 94
06/17/24 07:00 06/17/24 07:00 06/17/24 07:00 06/17/24 07:00
MDM/Problems Addressed
Differential Diagnosis Includes:
Ventricular dysrhythmia, micturition syncope, dehydration, subdural, cervical spine fracture
MDM/Problems Addressed:
Patient had a syncopal episode he did strike his head. Patient does take Coumadin. His INR is therapeutic. CT head and neck shows no acute abnormalities. Patient is known to the heart transplant team at [place]. I spoke to the fellow who believes
the patient should be transferred for monitoring given the potential for ventricular dysrhythmia. Patient was accepted and transferred by Dr. Gonzalez.
*Radiology
Radiology exam reviewed: preliminary read by ED provider (No acute abnormality noted on my review of the patient's head and cervical spine CT.)
*Pulse Oximetry
Patient hypoxic: no
*EKG
Interpreted by ED Provider?: Yes
Heart Rate: 65
Rate: normal
Rhythm: sinus
[place]: normal axis
Ischemia: non-specific ST changes
*Film Technician Interpretation
Rate: normal
Interpretation: normal
Rhythm: sinus
*Critical Care Note
Total Time (30-74mins, 75-104mins- exclusive of procedures): Not Applicable
ED Attending Note
-
Portions of this chart may have been created with voice recognition software.� Occasional wrong word or��sound alike� substitutions may have occurred due to the inherent limitations of voice recognition software.
Discharge Plan
Departure
Patient Disposition: Acute Care Hospital
Date of Disposition: 06/17/24
Time of Disposition: 07:30
Patient with high blood pressure during this ER visit?: No
Condition: Good
Discharge Problem:
Syncope, Cardiomyopathy
Prescriptions:
No Action
multivitamin Tablet
1 tab PO DAILY
furosemide [Lasix] 20 mg tablet
20 mg PO DAILY
leflunomide 20 mg Tablet
20 mg PO DAILY
albuterol sulfate 90 mcg/actuation Hfa Aerosol Inhaler
1 puff INHALATION R Q4HPRN PRN (Reason: sob)
Jardiance 10 mg Tablet
10 mg PO DAILY
turmeric 400 mg Capsule
400 mg PO DAILY
trazodone 50 mg Tablet
25 mg PO HSPRN PRN (Reason: sleep)
amiodarone 200 mg Tablet
200 mg PO DAILY
warfarin 2.5 mg Tablet
5 mg PO FRSA
warfarin 2.5 mg Tablet
7.5 mg PO WE
warfarin 2.5 mg Tablet
2.5 mg PO SUMOTU
valsartan 80 mg Tablet
20 mg PO DAILY
spironolactone 25 mg Tablet
12.5 mg PO DAILY
heparin lock flush (porcine) [heparin lock flush] 10 unit/mL Solution
5 unit IV DAILYPRN PRN (Reason: venous catheter)
enoxaparin [Lovenox] 80 mg/0.8 mL Syringe
80 mg SC BID
Referrals:
Vale Myers MD [Family Provider] -
Hospital Transfer
Other hospital: [facility]
I certify that the patient requires transfer: Yes
Discussed case with accepting physician: Dr. Gonzalez
Reason for transfer: higher level of care and specialties available
Interventions
Interventions:
*Risk Screen - Suicide Last Done: 06/17/24 03:40
*General Assessment Last Done: 06/17/24 03:40
*Neglect/Abuse Screening Last Done: 06/17/24 03:40
ED- Fall Risk Assessment Last Done: 06/17/24 03:40
*ED COVID-19 Vaccine History Last Done: 06/17/24 03:40
ED- Cardiac Assessment Last Done: 06/17/24 03:40
ED- Neurological Assessment Last Done: 06/17/24 03:40
Discharge Date and Time
Print Language: MOROCCAN
--- NOTE | 2024-06-17 15:16 | HPS.HSE ---
Family Physician
-
Family Physician: Vale Myers
Chief Complaint
-
syncope
History of Present Illness
63-year-old male past medical history of end-stage heart failure/dilated cardiomyopathy with EF of 25% on milrinone infusion, mitral valve regurgitation, atrial fibrillation, hypertension, DVT on Coumadin, obstructive sleep apnea, rheumatoid
arthritis, hyperlipidemia, presenting to the emergency room after passing out in the bathroom. He believes that his ICD fired.
He woke up at 2:30 AM and was feeling dizzy and weak and then suddenly passed out. He denies remembering being shocked but looked at the ICD data on the monitor and sent the information to his cnc operator machinist at [place]. Patient does not remember rhythm
but believes it was ventricular tachycardia that he saw.
After the incident he continued to feel little bit dizzy and weak. He initially had some chest soreness but this has resolved. He denies any shortness of breath.
He hit his face and is complaining of some right paraspinal back pain and left knee pain. He is able to walk.
He has been feeling unwell with sinus congestion, cough for the past week. He was started on Augmentin on 06/09 which finishes in 2 days.
Patient has end-stage heart failure is on the heart transplant list at [facility].
He denies smoking or alcohol use.
Medical History
Past Medical History
Past Medical History: Reports Other (end-stage heart failure/dilated cardiomyopathy with EF of 25% on milrinone infusion, mitral valve regurgitation, atrial fibrillation, hypertension, DVT on Coumadin, obstructive sleep apnea, rheumatoid arthritis,
hyperlipidemia)
Past Surgical History: Reports Other ( Cardiac (cath) and Orthopedic)
Social History
Tobacco: Non-smoker
Alcohol: None
Drug: None
Family History
Family History: Not pertinent
Allergies / Home Medications
Allergies reflects when Allergies were last updated in [facility].
Home Medications with original date entered in [facility]
Allergy/Medication List:
Allergies
Allergy/AdvReac Type Severity Reaction Status Date / Time
codeine AdvReac Mild Nausea Verified 06/17/24 04:54
Home Medications
multivitamin 1 tab PO DAILY Supplement 06/19/23
furosemide 20 mg tablet (Lasix) 40 mg PO DAILY Fluid Retention/Swelling 08/04/23
albuterol sulfate 90 mcg/actuation aerosol inhaler 1 puff inhalation R Q4HPRN PRN sob 08/24/23
empagliflozin 10 mg tablet (Jardiance) 10 mg PO DAILY Diabetes 08/24/23
amiodarone 200 mg tablet 200 mg PO DAILY 10/17/23
spironolactone 25 mg tablet 12.5 mg PO BID 10/17/23
warfarin 2.5 mg tablet 2.5 mg PO WE 10/17/23
warfarin 2.5 mg tablet 3.75 mg PO SUMOTUTHFRSA@1900 10/17/23
Patient Own Milrinon Pump 0 mcg IV .CONTINOUS 06/17/24
amoxicillin 875 mg-potassium clavulanate 125 mg tablet 1 tab PO BID 06/17/24
efinaconazole 10 % topical solution with applicator 1 applic topical HS TOENAIL 06/17/24
fluticasone propionate 50 mcg/actuation nasal spray,suspension 2 spray intranasal Q12H 06/17/24
leucovorin calcium 10 mg tablet 10 mg PO MO 06/17/24
methotrexate (PF) 25 mg/0.5 mL subcutaneous auto-injector (Rasuvo (PF)) 25 mg SC SAAB 06/17/24
valsartan 40 mg tablet 20 mg PO BID 06/17/24
Review of Systems
-
History Source: Patient
A 12 point ROS was completed and negative except as noted: Yes
Constitutional: Reports No Symptoms
EENT: Reports No Symptoms
Respiratory: Reports See HPI
Cardiac: Reports See HPI
Abdomen/GI: Reports No Symptoms
: Reports No Symptoms
Musculoskeletal: Reports No Symptoms
Skin: Reports No Symptoms
Neurological: Reports No Symptoms
Endocrine: Reports No Symptoms
Hematologic/Lymphatic: Reports No Symptoms
Psych: Reports No Symptoms
Physical Exam
Vital Signs
Vital Signs
Temp Pulse Resp BP Pulse Ox
98.2 F 66 20 101/73 99
06/17/24 14:53 06/17/24 14:43 06/17/24 14:00 06/17/24 12:00 06/17/24 13:00
Physical Exam
General: Well Developed, Well Nourished and No Apparent Distress
HEENT: NormoCephalic, Moist mucous membranes and Atraumatic
Respiratory: Clear
Cardiac: S1/S2 and Regular Rhythm; No Murmur or Rub
GI: Soft, Non Tender, Non Distended and Normal Bowel Sounds; No Organomegaly
Rectal: Deferred by Provider
Musculoskeletal: No Clubbing, No Cyanosis and No Edema
Skin: No Rash
Neuro: Nonfocal/grossly intact
Laboratory Results
-
06/17/24 03:41
06/17/24 03:41
Laboratory Results
PT 25.9 Sec (11.4-14.6) H 06/17/24 03:43
INR 2.32 06/17/24 03:43
Total Bilirubin 0.4 mg/dl (0.2-1.3) 06/17/24 03:41
AST 32 U/L (17-59) 06/17/24 03:41
ALT 26 U/L (0-50) 06/17/24 03:41
Alkaline Phosphatase 67 U/L (38-126) 06/17/24 03:41
Troponin I < 0.012 ng/ml 06/17/24 03:41
Data Reviewed
-
Lab Data: Labs Reviewed by me
Old Records: Reviewed
Impression/Plan
-
IMPRESSION:
PLAN:
# Syncopal episode likely ventricular tachycardia status post likely ICD shock
# History of end-stage heart failure/dilated cardiomyopathy with EF of 25% with ICD
# Mitral valve regurgitation
-On milrinone infusion
-Continue empagliflozin
-Continue Lasix
-Continue spironolactone
-Patient accepted for transfer at [place] and accepted by Dr. Gonzalez but no beds available
# Right paraspinal muscle tenderness from fall
-Tylenol, warm compress
# Left knee pain after fall
-Doubt fracture
# Recent URI/sinusitis
-Continue Augmentin for 10-day course which finishes in 2 days
Paroxysmal atrial fibrillation
-Continue amiodarone
-Continue Coumadin
Essential hypertension
-Continue losartan
History of DVT
-Continue Coumadin
Obstructive sleep apnea
Rheumatoid arthritis
-Continue methotrexate, leucovorin
Hyperlipidemia
Full code
DVT prophylaxis�Coumadin
Cardiac diet
[2024-06-17] MEDS: COUMADIN PO (20:07)
[2024-06-17] MEDS: ALDACTONE PO (20:08)
[2024-06-17] MEDS: DIOVAN PO (20:08)
[2024-06-17] MEDS: TYLENOL 1000 MG PO (20:10)
--- NOTE | 2024-06-17 20:46 | PTCARENOTE ---
Addendum entered by Payal Norris RN 06/17/24 23:46:
Order clarified about Milrinone pump order*
Original Note:
Patient concerned about his mildrinone pump and not being able to have any family members bring in more of the medication in the morning when the bag runs around 0800 or 0900. RN spoke to Dr Morales and pharmacy regarding patient`s mildrinone pump.
Order placed for patient to use home pump and mildrinone for the night, and will switch order at 0900 to use hospital medication and pump. Will relay information to dayshift nurse in morning to switch home pump and medication to hospital pump and
medication. Patient education provided.
--- NOTE | 2024-06-18 00:27 | VATNOTE ---
upon rounds earlier this anton; noted pt. had left PICC from [place]. Dsg had been changed thursday according to pt. by [facility]. Bio patch appears inverted. Pt. stated 'this is the way it always looks'; dsg left as is.
[2024-06-18 03:37] VITALS: BP 105/64
[2024-06-18] MEDS: TYLENOL 1000 MG PO ×2 (05:29→20:17)
[2024-06-18 06:00] VITALS: BMI 21.2
[2024-06-18 07:00] VITALS: BP 105/71
[2024-06-18 07:14] LABS: % Basophils 1.2 % (0-2); % Eosinophils 4.4 % (0-6); % Immature Granulocytes 0.6 % (0-0.5); % Lymphocytes 33.5 % (20.5-51.1); % Monocytes 12.7 % (1.7-9.3); % Neutrophils 47.6 % (42.2-75.2); Absolute Basophils 0.1 10^3/uL (0-0.2); Absolute Eosinophils 0.2 10^3/uL (0-0.7); Absolute Lymphocytes 1.7 10^3/uL (1.2-3.4); Absolute Monocytes 0.7 10^3/uL (0.1-0.6); Absolute Neutrophils 2.5 10^3/uL (1.4-6.5); Hematocrit 37.1 % (39.0-52.0); Hemoglobin 12.8 g/dL (13.0-18.0); Mean Corp Hgb Conc. 34.5 g/dL (33.0-37.0); Mean Corpuscular Hgb 31.7 pg (27.0-31.0); Mean Corpuscular Volume 91.8 fL (80.0-94.0); Nucleated Red Blood Cells % 0 % (-); Platelet Count 227 10^3/uL (130-400); Red Blood Cell Count 4.04 10^6/uL (4.70-6.10); Red Cell Dist. Width 13.7 % (11.5-14.5); White Blood Cell Count 5.2 10^3/uL (4.8-10.8)
[2024-06-18 07:23] LABS: ALT (SGPT) 21 U/L (0-50); AST (SGOT) 26 U/L (17-59); Albumin 4.3 g/dl (3.5-5.0); Alkaline Phosphatase 61 U/L (38-126); Blood Urea Nitrogen 25 mg/dl (9-20); Carbon Dioxide 23 mmol/L (22-30); Chloride 103 mmol/L (98-107); Estimated Creatinine Clearance 76 ml/min; Glucose 104 mg/dl (70-99); Potassium 4.3 mmol/L (3.5-5.1); Sodium 137 mmol/L (135-145); Total Bilirubin 0.3 mg/dl (0.2-1.3); Total Protein 6.9 g/dl (6.3-8.2); eGFR > 60.00
[2024-06-18] MEDS: DIOVAN 20 MG PO ×2 (08:57→20:17)
[2024-06-18] MEDS: FARXIGA 10 MG PO (08:57)
[2024-06-18] MEDS: PACERONE 200 MG PO (08:58)
[2024-06-18] MEDS: ALDACTONE 12.5 MG PO ×2 (08:59→20:18)
[2024-06-18] MEDS: THERAGRAN 1 TABLET PO (08:59)
[2024-06-18] MEDS: LASIX 40 MG PO (09:00)
[2024-06-18] MEDS: PRIMACOR 20 MG 100 IV ×2 (09:01→21:25)
[2024-06-18 11:00] VITALS: BP 108/65
[2024-06-18] MEDS: TRIMOX/AMOXIL 125 MG PO ×2 (12:46→20:17)
--- NOTE | 2024-06-18 13:51 | W.PN.HOSP.TC ---
Today's Communication/Plan
-
Telemetry, monitor BMP/mag/Phos
Awaiting bed at [facility]
Assessment / Plan
Assessment / Plan
#Syncope secondary to VT and ICD shock
#NYHA class 4 HFrEF
#Secondary MR due to dilated cardiomyopathy
-Unclear etiology of HFrEF, possibly genetic though also possibly associated with RA with inflammatory cardiomyopathy (??)
-States left heart cath have negative in past; had PET scan that showed inflammation of heart recently
-Most recent echo with LVEF 25%; status post AICD for primary prevention
-Home GDMT with SGLT2, MRA, ARB; on Lasix 40 daily for loop diuresis
-Home medications also include amiodarone for antiarrhythmic therapy
-Currently appears euvolemic, pending transfer to [facility] where he is awaiting transplant
-Electrolyte goals K >4, magnesium >2
-Continue on telemetry here
#Mild concussion
-Had fall with a syncope, struck his head during the fall
-CT head negative for ICH; has some bruising over the nasal bridge
-Suspect mild dizziness is associated to concussive injury
-Will continue to monitor neurologic status
#Paroxysmal AF
-Home medications include amiodarone and warfarin with INR goal 2�3
-No known history of electrophysiologic interventions
-Heart rate currently WNL
#Hypertension
-No known history of hypertensive systemic disease
-Home medications include losartan 20 mg twice daily
-Blood pressure currently stable, suspect hypotension more of an issue with EF
#Rheumatoid arthritis
-Home medications include methotrexate and leucovorin
-Supposedly associated with his cardiomyopathy (though not due to CAD)
-Appears stable at this time
#MATTY on CPAP
-Compliant, has his home machine
DVT prophylaxis: Home warfarin
Diet: Low-cholesterol
CODE STATUS: Full code
Disposition: Awaiting bed at [facility]
Anticipated Discharge: Within 24 hours
Subjective/Interval History
-
Date of Service: June 18, 2024
Seen and examined at the bedside. No acute events reported since admission. AFVSS this morning on milrinone infusion
Denies any acute complaints today. States he feels fairly well outside of some dizziness when he focuses on reading. Denies chest pain, dyspnea, edema, lightheadedness today
Pending bed at [facility]
Objective Data
-
Labs:
Laboratory Results
06/18/24
06:23
WBC 5.2
Hgb 12.8 L
Hct 37.1 L
Plt Count 227
Sodium 137
Potassium 4.3
Chloride 103
Carbon Dioxide 23
BUN 25 H
Creatinine 1.1
Glucose 104 H
Calcium 9.0
Total Bilirubin 0.3
AST 26
ALT 21
Alkaline Phosphatase 61
Vital Signs:
Vital Signs
Temp Pulse Resp BP Pulse Ox
98.1 F 73 20 108/65 95
06/18/24 11:00 06/18/24 11:00 06/18/24 11:00 06/18/24 11:00 06/18/24 11:00
I&O
06/17/24 06/18/24 06/19/24
06:59 06:59 06:59
Intake Total 240 / 240 480 / 480
Output Total 800 / 800 550 / 550
Balance -560 / -560 -70 / -70
Review of Systems
-
History Source: Patient
All other systems: Reviewed and negative
Physical Exam
-
General: Well Developed, No Apparent Distress, Comfortable and Other (Thin male)
HEENT: Normocephalic, Atraumatic, Moist Mucous Membranes and Anicteric
Respiratory: Clear to Auscultation and Non Labored Respirations; Negative Accessory Resp Muscle Use
Cardiac: Regular Rhythm, S1/S2 and Murmur (2/6 apical blowing); Negative Rub, JVD or Gallop
GI: Soft, Nontender, Nondistended and Normal Bowel Sounds
Musculoskeletal: No Clubbing, No Cyanosis and No Edema
Skin: Warm and Dry; Negative Rash
Neuro: AO x 3, Nonfocal/Grossly Intact and Central Nerve's Intact
Psych: Calm
Data Reviewed
-
Labs: Labs Reviewed by me and Discussed with Patient
[2024-06-18 15:00] VITALS: BP 102/66
--- NOTE | 2024-06-18 17:56 | CM ---
Addendum entered by Rosenda Gleason 06/18/24 18:10:
IA completed
Lives in a multistory condo with , 4 steps to enter, flight to second floor
PLOF: independent, does not drive
DME: CPAP
Has [facility] for PICC maintenance (Milrinone)
Has had outpatient cardiac rehab
PCP: Vale Myers
Pharmacy: [address]
Original Note:
Patient in for discharge.
Disposition: Awaiting bed at [facility]
grocery clerk selling aware, has information, awaiting for them to call with bed.
PLAN: Transfer [facility]
[2024-06-18] MEDS: COUMADIN 3.75 MG PO (18:50)
[2024-06-18 19:33] VITALS: BP 108/58
[2024-06-18 20:14] VITALS: BP 111/61
--- NOTE | 2024-06-18 22:19 | PTCARENOTE ---
Report called to Ashley GALEANO at [facility] at around 2145. Transport set up for 2200 for transfer.
--- NOTE | 2024-06-19 15:51 | W.DCSUMMARY ---
Discharge Summary
Discharge Data
Date of Admission: 06/17/24
Date of Discharge: 06/19/24
-
Pending Results: No
Hospital Course
63-year-old male with NYHA class IV HFrEF secondary to unspecified dilated cardiomyopathy (possibly RA inflammatory cardiomyopathy?) with EF 20%, s/p AICD that presented to the hospital with a syncopal episode due to ventricular tachycardia and
subsequent ICD discharge. No goal-directed interventions were performed at this facility. Was accepted for transfer to [facility] where he is currently on the transplant list. Was accepted for transfer and bed was available on the night of
06/18/2024. He was then discharged at that time to [facility].
Discharge Plan
-
Patient Disposition: Acute Care Hospital
Condition: Fair
Discharge Orders:
Discharge Patient (As Directed); Ordered 06/18/24
Ordered By: Levar Betancourt
Discharge Date and Time
Discharge Date/Time: 06/18/24 22:37
Print Language: UPPER SORBIAN
== END 2024-06-18 22:37 | disposition short-term general hospital (02) | DRG 293 ==
LOC: 4 WEST ACU 15:35
PROVIDERS: ADMITTING PHYSICIAN Hospitalist; ATTENDING PHYSICIAN Internal Medicine; EMERGENCY PHYSICIAN Emergency Medicine; FAMILY PHYSICIAN Family Medicine
DX: I11.0 Hypertensive heart disease with heart failure (principal); Z76.82 Awaiting organ transplant status; I50.20 Unspecified systolic (congestive) heart failure; I42.0 Dilated cardiomyopathy; I50.84 End stage heart failure; I48.0 Paroxysmal atrial fibrillation; M06.9 Rheumatoid arthritis, unspecified; Z79.01 Long term (current) use of anticoagulants
CPT/HCPCS: 70450; 71045; 72125; 80053; 84484; 85025; 85610; 93005; 99285; J2260